=== PATIENT | male | born 1970 | race Caucasian/White ===

== ENCOUNTER 2020-04-11 10:34 | Outpatient (REF) | payer OTHER, SELFPAY ==
[2020-04-11 11:48] LABS: MANUAL DIFF FLAG NO
[2020-04-11 11:52] LABS: Basophils Absolute Auto 0.1 X10*3/uL (0.0-0.2); Basophils Percent Auto 0.6 % (0-2); Eosinophils Absolute Auto 0.2 X10*3/uL (0.0-0.4); Eosinophils Percent Auto 2.9 % (0-4); Hematocrit 45.6 % (42-52); Hemoglobin 14.6 g/dl (14.0-18.0); Imm Gran Abs Auto 0.02 X10*3/uL (0.00-0.03); Imm Gran Pct Auto 0.3 % (0.0-0.4); Lymphocytes Absolute Auto 2.4 X10*3/uL (1.2-4.9); Lymphocytes Percent Auto 30.5 % (20-40); Mean Corpuscular Hemoglobin 27.8 pg (27.0-33.0); Mean Corpuscular Volume 86.7 fL (80-98); Mean Platelet Volume 9.4 fL (9.4-12.4); Monocytes Absolute Auto 0.6 X10*3/uL (0.1-1.2); Monocytes Percent Auto 7.1 % (2-11); Neutrophils Absolute Auto 4.6 X10*3/uL (2.0-8.3); Neutrophils Percent Auto 58.6 % (45-73); Platelet Count 352 X10*3/uL (160-400); Red Blood Count 5.26 X10*6/uL (4.60-5.80); White Blood Count 7.9 X10*3/uL (4.8-10.8)
[2020-04-11 12:18] LABS: Alanine Aminotransferase 31 U/L (0-40); Albumin Level 4.4 g/dL (3.5-5.0); Alkaline Phosphatase 78 U/L (39-117); Anion Gap 12 (12-20); Aspartate Amino Transferase 24 U/L (5-37); Bilirubin Total 0.5 mg/dL (0.0-1.0); Blood Urea Nitrogen 15 mg/dL (9-16); Calcium 9.2 mg/dL (8.4-10.2); Carbon Dioxide 32 mmol/L (22-29); Chloride 98 mmol/L (96-108); Cholesterol 198 mg/dL; Estimated Glomerular Filt Rate > 60; Glucose Fasting 90 mg/dL (60-99); HDL Cholesterol 43 mg/dL; LDL Cholesterol Calculated 136 mg/dl; Potassium 3.8 mmol/l (3.3-5.1); Sodium 138 mmol/L (135-145); Total Protein 7.6 g/dL (6.5-8.0); Triglycerides 96 mg/dL
[2020-04-11 12:38] LABS: Vitamin D 25-OH Total 23.4 ng/mL (>30)
[2020-04-11 12:47] LABS: Folate 8.8 ng/mL (> or = 4.0); Vitamin B12 339 pg/mL (200-900)
== END 2020-04-11 10:35 | disposition home or self-care (01) ==
LOC: HO.LAB 10:34
PROVIDERS: Visit Provider Internal Medicine
DX: D51.0 Vitamin B12 deficiency anemia due to intrinsic factor deficiency (principal); I10 Essential (primary) hypertension; E55.9 Vitamin D deficiency, unspecified
CPT/HCPCS: 36415; 80053; 80061; 82306; 82607; 82746; 85025

== ENCOUNTER 2020-04-18 10:34 | Emergency (ER) | payer OTHER, SELFPAY ==
--- NOTE | 2020-04-18 10:44 | XR_ITS ---
EXAMINATION: XR ANKLE, RIGHT CLINICAL INFORMATION: Twisting injury, pain COMPARISON: Right ankle 08/24/2016 TECHNIQUE: AP, lateral, and mortise views of the right ankle. FINDINGS: There is no fracture or dislocation. The subtalar joint is unremarkable. The malleoli appear intact and the ankle mortise is symmetric. The retrocalcaneal recess is preserved. There is small posterior calcaneal spur. XR/XR ankle RT min 3V IMPRESSION: No fracture or dislocation.
[2020-04-18 11:09] VITALS: BP 126/84; PULSE 80; RESP 16; TEMP 36.7; O2SAT 97; BMI 50.2
--- NOTE | 2020-04-18 11:24 | ED.LOWEXIN ---
HPI - Extremity Injury (Lower) General Chief Complaint: Extremity Injury, Lower Stated Complaint: ankle injury,swelling Time Seen by Provider: 04/18/20 10:44 Source: patient Mode of arrival: ambulatory Limitations: no limitations History of Present Illness HPI Narrative: Right ankle pain status post rule ankle will walking. No fall. No knee pain or any other injury. MD complaint: ankle injury Onset (ago): hour(s) Type of Injury: inversion Place: home Severity: moderate Relieving factors: immobilization Context: walking Other symptoms: none Treatments prior to arrival: cold therapy Related Data Previous Rx's Medication Instructions Recorded gabapentin 400 mg capsule 400 mg PO BID #60 cap 03/01/20 hydrochlorothiazide 25 mg tablet 25 mg PO QAM #30 tab 03/30/20 Allergies Allergy/AdvReac Type Severity Reaction Status Date / Time No Known Allergies Allergy Verified 04/06/20 08:06 [No Known Allergies*] Review of Systems Review of Systems: Constitutional: No Weight loss, No Fever, No Chills, No Night Sweats, No Fatigue, No Malaise ENT/Mouth: No Hearing loss, No Ear Pain, No Nasal Congestion, No Sinus Pain, No Hoarseness, No sore throat, No Rhinorrhea, No Swallowing Difficulty Eyes: No Eye Pain, No Swelling, No Redness, No Foreign Body, No Discharge, No Vision Changes Cardiovascular: No Chest Pain Respiratory: No Cough, No Sputum, No Wheezing, No Smoke Exposure, No Dyspnea Musculoskeletal: No joint pain, No Myalgias, No Joint Swelling Skin: No Skin Lesions, No rash Neuro: No Weakness, No Numbness, No Paresthesias, No Loss of Consciousness, No Dizziness, No Headache Heme/Lymph: No Bruising, No Bleeding,No Lymphadenopathy Endocrine: No Polyuria, No Polydipsia, No Temperature Intolerance Yes all other systems are reviewed and are negative COUNT INCLUDES [facility] Past Medical History Medical History Arthritis Fibromyalgia HTN (hypertension) Surgical History History of biopsy History of carpal tunnel surgery Family History Family History (Updated 04/06/20 @ 08:07 by KIMI Estrella) Father Cancer Mother No problems noted. Sister Bone cancer Social History Social History Advance Directives: No Advance Directives Information Provided: Yes Physical Exam Vital Signs: Vital Signs: Last Vital Signs Temp 98.1 F 04/18/20 11:09 Pulse 80 04/18/20 11:09 Resp 16 04/18/20 11:09 BP 126/84 04/18/20 11:09 Pulse Ox 97 04/18/20 11:09 Body Mass Index 50.2 Reviewed Const: General: cooperative and healthy appearing; No acute distress or intoxicated appearing Nutritional Appearance: average body habitus Orientation/consciousness: patient oriented x3 Chest: Chest palpation & inspection: normal inspection of the chest Resp: Effort & Inspection: normal respiratory effort Cardio: Jugular venous distension: no JVD : General: Yes no CVA tenderness Back/Spine/Pelvis: Back: no CVA tenderness Skin: General skin exam: no rashes or lesions noted Neuro: General: patient oriented x3 Extrem: Other: Right ankle with slight swelling to the lateral aspect with tender palpation. No tender palpation over the foot. Squeeze test within normal limits. Negative Homans. Neurovascular intact. General: Yes normal to inspection MDM - Extremity Injury (Lower) MDM Narrative Medical decision making narrative: A strep/crutches Differential Diagnosis Differential diagnosis: Likely ankle sprain and strain; Unlikely ankle fracture Medical Records Attestation: I reviewed the patient's medical records. Lab Data Attestation: I reviewed the patient's lab results. Imaging Data Ankle x-ray right: Radiologist's impression: Marquez Allen 49 M 1970 [place] [id number] XRay Report Signed Patient: Marquez AllenMR#: [id number] : 1970Acct:[id number] Age/Sex: 49 / MADM Date: 04/18/20 Loc: HO.ED Attending Dr: Ordering Physician: Jc Rich NP Date of Service: 04/18/20 Procedure(s): XR ankle RT min 3V Accession Number(s): [id number] cc: Jc Rich NP~ EXAMINATION: XR ANKLE, RIGHT CLINICAL INFORMATION: Twisting injury, pain COMPARISON: Right ankle 08/24/2016 TECHNIQUE: AP, lateral, and mortise views of the right ankle. FINDINGS: There is no fracture or dislocation. The subtalar joint is unremarkable. The malleoli appear intact and the ankle mortise is symmetric. The retrocalcaneal recess is preserved. There is small posterior calcaneal spur. XR/XR ankle RT min 3V IMPRESSION: No fracture or dislocation. Dictated By:ANDERS SORENSON MD Signed By:<Electronically signed by ANDERS SORENSON MD in OV>04/18/20 1059 DD/ 1044 TD/TT: Early Childhood Teacher Assistant: NIRAV Discharge Plan Discharge Clinical Impression: Ankle sprain and strain Patient Disposition: Home, Self-Care Instructions: Ankle Sprain (ED), Crutch Instructions (ED) Additional Instructions: Ice, elevate, compress Crutches Weightbearing as tolerated Ibuprofen for pain discomfort per instructions Return if any concerns worsening symptoms Thank you Prescriptions: No Action gabapentin 400 mg capsule 400 mg PO BID Qty: 60 RF: 6 hydrochlorothiazide 25 mg tablet 25 mg PO QAM Qty: 30 RF: 1 Referrals: ED Physician,Generic [Emergency Provider] - 1 week (Primary care doctor as needed)
== END 2020-04-18 12:09 | disposition home or self-care (01) ==
PROVIDERS: Emergency Provider Internal Medicine
DX: S93.401A Sprain of unspecified ligament of right ankle, initial encounter (principal); M25.571 Pain in right ankle and joints of right foot; X50.1XXA Overexertion from prolonged static or awkward postures, initial encounter; Y93.9 Activity, unspecified; Y99.9 Unspecified external cause status; Y92.009 Unspecified place in unspecified non-institutional (private) residence as the place of occurrence of the external cause; Z79.899 Other long term (current) drug therapy
CPT/HCPCS: 73610; 99283

== ENCOUNTER → 2020-05-18 14:39 | Outpatient (BNVA) | payer OTHER, SELFPAY | PROVIDERS: PCP Internal Medicine; Visit Provider Nurse Practitioner | DX: K21.9 Gastro-esophageal reflux disease without esophagitis (principal); K64.2 Third degree hemorrhoids; K59.04 Chronic idiopathic constipation | CPT/HCPCS: Q3014 ==

== ENCOUNTER 2020-10-11 13:43 | Outpatient (REF) | payer OTHER, SELFPAY ==
--- NOTE | ~2020-10-11 | CT_ITS ---
EXAMINATION: CT OF THE SACRUM CLINICAL INFORMATION: Spina bifida, unspecified COMPARISON: CT dated 10/16/2019 TECHNIQUE: Multidetector volumetric imaging was obtained through the pelvis without intravenous contrast. Multiplanar reformatted images in coronal and sagittal orientations were submitted. Reconstructions are centered around the sacrum. DLP: 937 mGy-cm This CT examination was performed using dose optimization techniques as appropriate, variously including the following: *Automated exposure control *Adjustment of mA and/or kV according to patient size (this includes techniques or standardized protocols for targeted exams where dose is matched to indication/reason for exam; i.e. extremities or head) *Use of iterative reconstruction technique FINDINGS: The sacrum appears normal morphology without appreciable findings of dysraphism. The posterior elements appear appropriately fused. No cystic outpouchings are identified. Of note, the central canal at the level of L5 appears developmentally narrow (1.2 cm). There is grade 1 anterolisthesis of L4 on L5 (3 mm) with severe facet arthropathy at L4-L5 and mild to moderate degenerative disc disease. There is more mild degenerative disease and moderate facet arthropathy at L5-S1. There is mild osteoarthritis in the sacroiliac joints with vacuum phenomenon, subarticular sclerosis, and articular cortical irregularity. Hips and pubic symphysis are normal in appearance and appear relatively well preserved. No osseous lesions are identified. Bone mineralization is normal. Calcifications are present within the central gland of the prostate. Bladder and distal ureters are normal in appearance. Intrapelvic small bowel and colon are normal in caliber without surrounding inflammatory change. Appendix is normal. No adenopathy. Pelvic musculature appears symmetric. No focal atrophy. No joint effusions or bursal collections are identified. CT/CT sacrum IMPRESSION: 1. No evidence of spinal dysraphism at the sacrum/coccyx. 2. Developmentally narrow central canal at the L5 level. 3. Marked facet arthropathy in the lumbar spine with grade 1 anterolisthesis of L4 on L5. 4. Mild osteoarthritis in the SI joints.
--- NOTE | ~2020-10-11 | XR_ITS ---
EXAMINATION: XR HIP, RIGHT CLINICAL INFORMATION: Right hip pain. COMPARISON: Right hip radiographs dated 07/26/2017 TECHNIQUE: Two views of the right hip. FINDINGS: Bones and soft tissues are normal. No fracture. Alignment is anatomic. Hip joint space is maintained. XR/XR hip RT min 2V IMPRESSION: Unremarkable examination.
--- NOTE | ~2020-10-11 | XR_ITS ---
EXAMINATION: XR THORACOLUMBAR SPINE CLINICAL INFORMATION: Thoracic spine pain. COMPARISON: Thoracic spine radiographs dated 08/24/2016 TECHNIQUE: AP, lateral, and swimmer's views of the thoracic spine. FINDINGS: Normal vertebral body alignment. The thoracic kyphosis is maintained. No acute fracture or subluxation. No loss of vertebral body height. Multilevel loss of intervertebral disc height with anterior endplate osteophytes, increased when compared to the prior examination. No lytic or blastic osseous lesion. The visualized lungs are clear. XR/XR thoracic spine 2V IMPRESSION: Moderate multilevel degenerative disc disease, increased when compared to the radiographs dated 08/24/2016.
== END 2020-10-11 13:44 | disposition home or self-care (01) ==
LOC: HO.CT 13:43
PROVIDERS: Visit Provider Internal Medicine
DX: Q05.9 Spina bifida, unspecified (principal); M54.6 Pain in thoracic spine; M25.551 Pain in right hip
CPT/HCPCS: 72070; 72192; 73502

== ENCOUNTER → 2020-11-15 09:56 | Outpatient (BNVA) | payer OTHER, SELFPAY | PROVIDERS: PCP Internal Medicine; Visit Provider Internal Medicine Gastroenterology | CPT/HCPCS: Q3014 ==

== ENCOUNTER 2020-11-28 09:31 | Outpatient (REF) | payer OTHER, SELFPAY ==
[2020-11-28 10:00] LABS: MANUAL DIFF FLAG NO
[2020-11-28 10:07] LABS: Basophils Absolute Auto 0.1 X10*3/uL (0.0-0.2); Basophils Percent Auto 0.8 % (0-2); Eosinophils Absolute Auto 0.3 X10*3/uL (0.0-0.4); Eosinophils Percent Auto 3.5 % (0-4); Hematocrit 44.4 % (42-52); Hemoglobin 14.4 g/dl (14.0-18.0); Imm Gran Abs Auto 0.02 X10*3/uL (0.00-0.03); Imm Gran Pct Auto 0.3 % (0.0-0.4); Lymphocytes Absolute Auto 2.4 X10*3/uL (1.2-4.9); Lymphocytes Percent Auto 31.1 % (20-40); Mean Corpuscular HGB Conc 32.4 g/dl (31.0-36.0); Mean Corpuscular Hemoglobin 28.6 pg (27.0-33.0); Mean Corpuscular Volume 88.1 fL (80-98); Monocytes Absolute Auto 0.7 X10*3/uL (0.1-1.2); Monocytes Percent Auto 8.9 % (2-11); Neutrophils Absolute Auto 4.3 X10*3/uL (2.0-8.3); Neutrophils Percent Auto 55.4 % (45-73); Platelet Count 317 X10*3/uL (160-400); Red Blood Count 5.04 X10*6/uL (4.60-5.80); Red Cell Distribution Width 12.5 % (11.0-16.0); White Blood Count 7.8 X10*3/uL (4.8-10.8)
[2020-11-28 10:25] LABS: Alanine Aminotransferase 35 U/L (0-40); Albumin Level 4.4 g/dL (3.5-5.0); Alkaline Phosphatase 72 U/L (39-117); Anion Gap 14 (12-20); Aspartate Amino Transferase 26 U/L (5-37); Bilirubin Total 0.7 mg/dL (0.0-1.0); Blood Urea Nitrogen 15 mg/dL (9-16); Calcium 9.6 mg/dL (8.4-10.2); Carbon Dioxide 30 mmol/L (22-29); Chloride 100 mmol/L (96-108); Cholesterol 172 mg/dL; Estimated Glomerular Filt Rate > 60; Glucose Fasting 96 mg/dL (60-99); HDL Cholesterol 45 mg/dL; LDL Cholesterol Calculated 111 mg/dl; Potassium 4.1 mmol/L (3.3-5.1); Sodium 140 mmol/L (135-145); Total Protein 7.7 g/dL (6.5-8.0); Triglycerides 80 mg/dL
[2020-11-28 11:07] LABS: Folate 14.6 ng/mL (> or = 4.0); Vitamin B12 312 pg/mL (200-900)
[2020-12-05 13:31] LABS: Vitamin D 25-OH, D2 <4 ng/mL; Vitamin D 25-OH, D3 32 ng/mL; Vitamin D 25-OH, Total 32 ng/mL (30-100)
== END 2020-11-28 09:32 | disposition home or self-care (01) ==
LOC: HO.LAB 09:31
PROVIDERS: PCP Internal Medicine; Visit Provider Internal Medicine
DX: D64.9 Anemia, unspecified (principal); E55.9 Vitamin D deficiency, unspecified; E78.5 Hyperlipidemia, unspecified; I10 Essential (primary) hypertension; E53.8 Deficiency of other specified B group vitamins
CPT/HCPCS: 36415; 80053; 80061; 82306; 82607; 82746; 85025

== ENCOUNTER → 2021-01-02 13:14 | Outpatient (BNVA) | payer OTHER, SELFPAY | PROVIDERS: PCP Internal Medicine; Visit Provider Internal Medicine | DX: M47.814 Spondylosis without myelopathy or radiculopathy, thoracic region (principal); M51.34 Other intervertebral disc degeneration, thoracic region | CPT/HCPCS: 99202 ==

== ENCOUNTER → 2021-01-11 10:30 | Outpatient (BNVA) | payer OTHER, SELFPAY | PROVIDERS: PCP Internal Medicine; Referring Provider Internal Medicine; Visit Provider Physician Assistant | DX: E66.01 Morbid (severe) obesity due to excess calories (principal); K21.9 Gastro-esophageal reflux disease without esophagitis; K59.04 Chronic idiopathic constipation; R13.10 Dysphagia, unspecified; M79.7 Fibromyalgia; M47.814 Spondylosis without myelopathy or radiculopathy, thoracic region; Q05.9 Spina bifida, unspecified; I10 Essential (primary) hypertension; Z68.43 Body mass index [BMI] 50.0-59.9, adult | CPT/HCPCS: 99202 ==

== ENCOUNTER 2021-01-18 07:57 | Outpatient (REF) | payer OTHER, SELFPAY ==
--- NOTE | ~2021-01-18 | XR_ITS ---
EXAMINATION: XR CHEST CLINICAL INFORMATION: Morbid obesity COMPARISON: December 08, 2018 TECHNIQUE: 2 views of the chest were obtained. FINDINGS: No significant abnormality is noted involving the heart, lungs, mediastinum, bony thorax or soft tissues. XR/XR chest 2V IMPRESSION: No acute disease.
--- NOTE | 2021-01-18 08:15 | ECG_ITS ---
Test Reason : E66.01 Blood Pressure : / mmHG Vent. Rate : 088 BPM Atrial Rate : 088 BPM P-R Int : 164 ms QRS Dur : 088 ms QT Int : 366 ms P-R-T Axes : 069 045 062 degrees QTc Int : 442 ms Normal sinus rhythm Normal ECG When compared with ECG of 26-MAR-2019 19:45, No significant change was found Referred By: Eliz Ledezma Electronically Signed By:MOR LAUREANO
[2021-01-18 08:42] LABS: MANUAL DIFF FLAG NO
[2021-01-18 08:47] LABS: Basophils Absolute Auto 0.1 X10*3/uL (0.0-0.2); Basophils Percent Auto 0.6 % (0-2); Eosinophils Absolute Auto 0.2 X10*3/uL (0.0-0.4); Eosinophils Percent Auto 3.1 % (0-4); Hematocrit 44.1 % (42-52); Hemoglobin 14.8 g/dl (14.0-18.0); Imm Gran Abs Auto 0.02 X10*3/uL (0.00-0.03); Imm Gran Pct Auto 0.3 % (0.0-0.4); Lymphocytes Absolute Auto 2.4 X10*3/uL (1.2-4.9); Lymphocytes Percent Auto 30.9 % (20-40); Mean Corpuscular HGB Conc 33.6 g/dl (31.0-36.0); Mean Corpuscular Hemoglobin 28.9 pg (27.0-33.0); Mean Corpuscular Volume 86.1 fL (80-98); Monocytes Absolute Auto 0.7 X10*3/uL (0.1-1.2); Monocytes Percent Auto 9.3 % (2-11); Neutrophils Absolute Auto 4.4 X10*3/uL (2.0-8.3); Neutrophils Percent Auto 55.8 % (45-73); Platelet Count 345 X10*3/uL (160-400); Red Blood Count 5.12 X10*6/uL (4.60-5.80); Red Cell Distribution Width 12.4 % (11.0-16.0); White Blood Count 7.8 X10*3/uL (4.8-10.8)
[2021-01-18 09:01] LABS: Alanine Aminotransferase 35 U/L (0-40); Albumin Level 4.4 g/dL (3.5-5.0); Alkaline Phosphatase 62 U/L (39-117); Anion Gap 12 (12-20); Aspartate Amino Transferase 26 U/L (5-37); Bilirubin Total 0.8 mg/dL (0.0-1.0); Blood Urea Nitrogen 15 mg/dL (9-16); C Reactive Protein 0.27 mg/dL (< or = 0.50); Calcium 9.8 mg/dL (8.4-10.2); Carbon Dioxide 29 mmol/L (22-29); Chloride 101 mmol/L (96-108); Cholesterol 173 mg/dL; Estimated Glomerular Filt Rate > 60; Glucose Random 98 mg/dL (60-115); HDL Cholesterol 43 mg/dL; Iron 142 mcg/dL (45-160); LDL Cholesterol Calculated 115 mg/dl; Percent Iron Saturation 35 % (15-50); Sodium 138 mmol/L (135-145); Total Iron Binding Capacity 405 mcg/dL (228-428); Total Protein 7.8 g/dL (6.5-8.0); Triglycerides 79 mg/dL; Unsaturated Iron Binding 263 ug/dL
[2021-01-18 09:08] LABS: Estimated Average Glucose 111 mg/dL; Hemoglobin A1c % 5.5 %
[2021-01-18 09:29] LABS: TSH reflex Free T4 1.25 uIU/mL (0.32-4.0); Vitamin D 25-OH Total 31.2 ng/mL (>30)
[2021-01-18 09:38] LABS: Folate 12.7 ng/mL (> or = 4.0); Vitamin B12 373 pg/mL (200-900)
[2021-01-18 09:59] LABS: Ferritin 45 ng/mL (20-250)
[2021-01-19 09:26] LABS: Insulin Level Total 23.3 uIU/mL
[2021-01-19 16:16] LABS: Calcium (PTHI) 9.8 mg/dL (8.6-10.3); PTHI 47 pg/mL (14-64)
[2021-01-21 06:31] LABS: Zinc 91 mcg/dL (60-130)
[2021-01-22 10:10] LABS: Vitamin B1 9 nmol/L (8-30)
[2021-01-23 00:27] LABS: Vitamin A 36 mcg/dL (38-98)
== END 2021-01-18 07:58 | disposition home or self-care (01) ==
LOC: HO.XRAY 07:57
PROVIDERS: PCP Internal Medicine; Visit Provider Physician Assistant
DX: E66.01 Morbid (severe) obesity due to excess calories (principal); I10 Essential (primary) hypertension; K21.9 Gastro-esophageal reflux disease without esophagitis; R13.10 Dysphagia, unspecified
CPT/HCPCS: 36415; 71046; 80053; 80061; 82306; 82607; 82728; 82746; 83036; 83525; 83540; 83970; 84425; 84443; 84590; 84630; 85025; 86140; 93005

== ENCOUNTER 2021-01-27 10:58 | Outpatient (REF) | payer OTHER, SELFPAY ==
[2021-01-28 15:45] LABS: H Pylori Breath Test Negative (Negative)
== END 2021-01-27 10:59 | disposition home or self-care (01) ==
LOC: HO.LNP 10:58
PROVIDERS: PCP Internal Medicine; Referring Provider Internal Medicine; Visit Provider Physician Assistant
DX: A04.8 Other specified bacterial intestinal infections (principal)
CPT/HCPCS: 83013; 99211

== ENCOUNTER 2021-01-30 13:48 | Outpatient (REF) | payer OTHER, SELFPAY | END 2021-01-30 13:49 | disposition home or self-care (01) | LOC: HO.MRI 13:48 | PROVIDERS: PCP Internal Medicine; Visit Provider Internal Medicine | DX: M51.34 Other intervertebral disc degeneration, thoracic region (principal); E66.01 Morbid (severe) obesity due to excess calories; Z68.42 Body mass index [BMI] 45.0-49.9, adult; F17.200 Nicotine dependence, unspecified, uncomplicated; Z71.6 Tobacco abuse counseling | CPT/HCPCS: 99212 ==

== ENCOUNTER 2021-01-31 01:07 | Emergency (ER) | payer OTHER, SELFPAY ==
--- NOTE | ~2021-01-31 | CT_ITS ---
EXAMINATION: CT ABDOMEN AND PELVIS WITH CONTRAST CLINICAL INFORMATION: Left flank pain. Left lower quadrant pain. COMPARISON: Renal ultrasound from 11/30/2018. CT images of pelvis from 10/11/2020. TECHNIQUE: Multidetector volumetric images were obtained from the superior aspect of the liver through the pubic symphysis following administration 85 mL of Omnipaque 350 intravenous contrast. Sagittal and coronal reformatted images were obtained on the technologist's workstation. Oral contrast: No This CT examination was performed using dose optimization techniques as appropriate, variously including the following: *Automated exposure control *Adjustment of mA and/or kV according to patient size (this includes techniques or standardized protocols for targeted exams where dose is matched to indication/reason for exam; i.e. extremities or head) *Use of iterative reconstruction technique DLP: 1082 mGy-cm FINDINGS: LUNG BASES: Large body habitus. Subsegmental atelectasis in the inferior lingula. No pulmonary consolidation or pleural effusion at either lung base. LIVER: The liver has normal size, shape, and attenuation. No evidence of liver mass. GALLBLADDER AND BILIARY TREE: Gallbladder is without radiopaque stones, wall thickening or pericholecystic fluid. No bile duct dilatation. PANCREAS: Normal. No edema, pancreatic ductal dilatation or mass. SPLEEN: Normal. ADRENAL GLANDS: Normal. KIDNEYS AND URETERS: The kidneys have normal size and cortical thickness. No solid mass or perinephric fluid collection. No urolithiasis or hydroureteronephrosis. BLADDER: Normal. No calculi or wall thickening. BOWEL AND PERITONEUM: Stomach is unremarkable. No dilated loops of bowel. The appendix is normal. No overt bowel wall thickening or mesenteric fat stranding. No ascites or pneumoperitoneum. ABDOMINAL WALL: Unremarkable. VASCULATURE: Unremarkable. LYMPH NODES: No pathologic sized lymph nodes in the abdomen or pelvis. No inguinal lymphadenopathy. PELVIC VISCERA: Prostate gland is unremarkable. No pelvic mass or pelvic free fluid. SKELETAL: At L4-L5, there is facet arthropathy and disc degenerative change (with vacuum disc phenomenon) and grade 1 anterolisthesis of L4 on L5. No suspicious bone lesions. CT/CT abdomen pelvis w con IMPRESSION: * No acute imaging abnormalities in the abdomen or pelvis. * No evidence of urolithiasis or hydroureteronephrosis.
[2021-01-31 01:19] VITALS: BP 152/82; PULSE 69; RESP 18; TEMP 36.6; O2SAT 99; BMI 51.0
[2021-01-31 01:48] LABS: MANUAL DIFF FLAG NO
[2021-01-31 01:49] LABS: Basophils Absolute Auto 0.1 X10*3/uL (0.0-0.2); Basophils Percent Auto 0.6 % (0-2); Eosinophils Absolute Auto 0.2 X10*3/uL (0.0-0.4); Eosinophils Percent Auto 2.5 % (0-4); Hematocrit 42.6 % (42-52); Hemoglobin 14.3 g/dl (14.0-18.0); Imm Gran Abs Auto 0.02 X10*3/uL (0.00-0.03); Imm Gran Pct Auto 0.2 % (0.0-0.4); Lymphocytes Absolute Auto 3.4 X10*3/uL (1.2-4.9); Lymphocytes Percent Auto 39.4 % (20-40); Mean Corpuscular HGB Conc 33.6 g/dl (31.0-36.0); Mean Corpuscular Hemoglobin 29.2 pg (27.0-33.0); Mean Corpuscular Volume 86.9 fL (80-98); Mean Platelet Volume 8.8 fL (9.4-12.4); Monocytes Absolute Auto 0.7 X10*3/uL (0.1-1.2); Monocytes Percent Auto 8.3 % (2-11); Neutrophils Absolute Auto 4.2 X10*3/uL (2.0-8.3); Platelet Count 339 X10*3/uL (160-400); Red Cell Distribution Width 12.4 % (11.0-16.0); White Blood Count 8.6 X10*3/uL (4.8-10.8)
[2021-01-31 02:08] LABS: Alanine Aminotransferase 29 U/L (0-40); Albumin Level 4.3 g/dL (3.5-5.0); Alkaline Phosphatase 71 U/L (39-117); Anion Gap 12 (12-20); Aspartate Amino Transferase 25 U/L (5-37); Bilirubin Direct 0.2 mg/dL (0.0-0.5); Bilirubin Total 0.6 mg/dL (0.0-1.0); Blood Urea Nitrogen 17 mg/dL (9-16); Calcium 9.7 mg/dL (8.4-10.2); Carbon Dioxide 29 mmol/L (22-29); Chloride 102 mmol/L (96-108); Creatinine Clr Calc Pharmacy 86.7; Estimated Glomerular Filt Rate > 60; Glucose Random 96 mg/dL (60-115); Lipase 25 U/L (8-78); Potassium 4.1 mmol/L (3.3-5.1); Sodium 139 mmol/L (135-145); Total Protein 7.4 g/dL (6.5-8.0)
[2021-01-31 04:48] VITALS: BP 128/76; PULSE 68; RESP 18; O2SAT 100
[2021-01-31 05:42] LABS: Appearance Urine CLEAR; Color Urine YELLOW; Glucose Urine UA NEG (NEG); Leukocyte Esterase Urine NEG (NEG); Nitrite Urine NEG (NEG); UACC Culture Trigger NO; Urine Blood TRACE (NEG); Urine Ketones 5 MG/DL (NEG); Urine Protein NEG (NEG-TRACE)
[2021-01-31 05:47] LABS: Mucus Urine 2+ /LPF; WBC Urine 0-2 /HPF (0-4)
--- NOTE | 2021-01-31 06:36 | ED.ABDPAIN ---
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 He states he has a history of renal stones. Related Data Home Medications Medication Instructions Recorded Confirmed hydrocortisone 2.5 % topical cream 1 appl UT BID-QID PRN 05/18/20 01/02/21 with perineal applicator (Anusol-HC) escitalopram oxalate 10 mg tablet 10 mg PO QAM 11/15/20 01/02/21 zolpidem 10 mg tablet 500f10 mg PO BEDTIME PRN 11/15/20 01/02/21 Previous Rx's Medication Instructions Recorded cholecalciferol (vitamin D3) 25 25 mcg PO DAILY 90 Days #90 cap 07/21/20 mcg (1,000 unit) capsule enalapril maleate 10 mg tablet 10 mg PO DAILY 90 Days #90 tab 09/01/20 omeprazole 40 mg capsule,delayed 40 mg PO DAILY #90 cap 11/15/20 release duloxetine 60 mg capsule,delayed 60 mg PO DAILY 90 Days #90 cap 12/05/20 release (Cymbalta) gabapentin 400 mg capsule 400 mg PO TID 30 Days #90 cap 12/05/20 hydrochlorothiazide 25 mg tablet 25 mg PO QAM 90 Days #90 tab 12/21/20 linaclotide 145 mcg capsule 145 mcg PO QAM 30 Days #30 cap 12/21/20 (Linzess) sennosides 8.6 mg tablet (Francesca-alcon) See Rx Instructions PO .COMPLEX 12/26/20 PRN 30 Days #90 tab cyanocobalamin (vitamin B-12) 500 500 mcg PO DAILY #30 tab 01/18/21 mcg tablet vitamin A palmitate 10,000 unit 20,000 unit PO DAILY 14 Days #28 01/25/21 tablet tab Allergies Allergy/AdvReac Type Severity Reaction Status Date / Time No Known Allergies Allergy Verified 01/30/21 10:31 [No Known Allergies*] Review of Systems Review of Systems Pertinent positives and negatives as stated in HPI 10 point review of systems is otherwise negative. Physical Exam Vital Signs: Vital Signs: Last Vital Signs Temp 97.8 F 01/31/21 01:19 Pulse 68 01/31/21 04:48 Resp 18 01/31/21 04:48 BP 128/76 01/31/21 04:48 Pulse Ox 100 01/31/21 04:48 Body Mass Index 51.0 VITAL SIGNS: Reviewed. GENERAL: Well developed, well nourished, in no acute distress. HEAD: Normocephalic/atraumatic EYES: PERRLA, EOMI OROPHARYNX: no oral lesions noted, posterior pharynx clear LUNGS: Normal breath sounds. No adventitious sounds or accessory muscle use. SpO2<100> CARDIOVASCULAR: Regular rate and rhythm without noted murmurs, no JVD or lower extremity edema. ABDOMEN: Soft, tenderness in left flank/lower quadrant without rebound, non-distended with bowel sounds. NEUROLOGIC: Alert and oriented x 4. Course Course Course Narrative: 50-year-old male with history and clinical presentation suggestive of renal colic but will rule out diverticulitis. Review of all investigations negative except for pending CT scan. Review of all investigations without acute findings. Specifically CT scan does not demonstrate any intra abdominal pathologies. MDM - Abdominal Pain Lab Data Result diagrams: 01/31/21 01:38 01/31/21 01:38 Labs: Lab Results 01/31/21 01/31/21 01/31/21 Range/Units 01:38 01:38 05:34 WBC 8.6 (4.8-10.8) X10*3/uL RBC 4.90 (4.60-5.80) X10*6/uL Hgb 14.3 (14.0-18.0) g/dl Hct 42.6 (42-52) % MCV 86.9 (80-98) fL MCH 29.2 (27.0-33.0) pg MCHC 33.6 (31.0-36.0) g/dl RDW 12.4 (11.0-16.0) % Plt Count 339 (160-400) X10*3/uL MPV 8.8 L (9.4-12.4) fL Immature Gran % (Auto) 0.2 (0.0-0.4) % Neut % (Auto) 49.0 (45-73) % Lymph % (Auto) 39.4 (20-40) % Dickson % (Auto) 8.3 (2-11) % Eos % (Auto) 2.5 (0-4) % Baso % (Auto) 0.6 (0-2) % Lymph # (Auto) 3.4 (1.2-4.9) X10*3/uL Dickson # (Auto) 0.7 (0.1-1.2) X10*3/uL Eos # (Auto) 0.2 (0.0-0.4) X10*3/uL Baso # (Auto) 0.1 (0.0-0.2) X10*3/uL Abs Immat Gran (auto) 0.02 (0.00-0.03) X10*3/uL Absolute Neuts (auto) 4.2 (2.0-8.3) X10*3/uL Absolute Nucleated RBC 0.000 (0.0-0.012) X10*3/uL Nucleated RBC % (auto) 0.0 (0.0-0.2) /100WBC Sodium 139 (135-145) mmol/L Potassium 4.1 (3.3-5.1) mmol/L Chloride 102 (96-108) mmol/L Carbon Dioxide 29 (22-29) mmol/L Anion Gap 12 (12-20) BUN 17 H (9-16) mg/dL Creatinine 1.26 (0.5-1.4) mg/dL Estim Creat Clear Calc 86.7 Estimated GFR > 60 Random Glucose 96 (60-115) mg/dL Calcium 9.7 (8.4-10.2) mg/dL Total Bilirubin 0.6 (0.0-1.0) mg/dL Direct Bilirubin 0.2 (0.0-0.5) mg/dL AST 25 (5-37) U/L ALT 29 (0-40) U/L Alkaline Phosphatase 71 (39-117) U/L Total Protein 7.4 (6.5-8.0) g/dL Albumin 4.3 (3.5-5.0) g/dL Lipase 25 (8-78) U/L Urine Color YELLOW Urine Appearance CLEAR Urine pH 6.0 (5.0-8.0) Ur Specific [place] 1.020 (1.005-1.025) Urine Protein NEG (NEG-TRACE) MG/DL Urine Glucose (UA) NEG (NEG) MG/DL Urine Ketones 5 (NEG) MG/DL Urine Blood TRACE (NEG) Urine Nitrite NEG (NEG) Ur Leukocyte Esterase NEG (NEG) Urine RBC 1-4 (0) /HPF Urine WBC 0-2 (0-4) /HPF Ur Squamous Epith Cells NONE /LPF Urine Bacteria NONE /LPF Urine Mucus 2+ /LPF Discharge Plan Discharge Clinical Impression: Abdominal pain Patient Disposition: Home, Self-Care Instructions: Abdominal Pain (ED) Additional Instructions: 1. Reanude todos los medicamentos caseros seg?n lo prescrito. 2. Rosalba un seguimiento con quiñones proveedor de atenci?n primaria. Regrese a la elias de emergencias por un empeoramiento joseline de los s?ntomas. Prescriptions: No Action cholecalciferol (vitamin D3) 25 mcg (1,000 unit) capsule 25 mcg PO DAILY 90 Days Qty: 90 RF: 3 Linzess 145 mcg capsule 145 mcg PO QAM 30 Days Qty: 30 RF: 3 hydrochlorothiazide 25 mg tablet 25 mg PO QAM 90 Days Qty: 90 RF: 3 sennosides [Francesca-alcon] 8.6 mg tablet See Rx Instructions PO .COMPLEX PRN (Reason: constipation) 30 Days Qty: 90 RF: 4 cyanocobalamin (vitamin B-12) 500 mcg tablet 500 mcg PO DAILY Qty: 30 RF: 6 vitamin A palmitate 10,000 unit tablet 20,000 unit PO DAILY 14 Days Qty: 28 RF: 0 enalapril maleate 10 mg tablet 10 mg PO DAILY 90 Days Qty: 90 RF: 1 duloxetine [Cymbalta] 60 mg capsule,delayed release(DR/EC) 60 mg PO DAILY 90 Days Qty: 90 RF: 2 gabapentin 400 mg capsule 400 mg PO TID 30 Days Qty: 90 RF: 3 hydrocortisone [Anusol-HC] 2.5 % cream with perineal applicator 1 appl UT BID-QID PRNRF: 0 zolpidem 10 mg tablet 500f10 mg PO BEDTIME PRNRF: 0 escitalopram oxalate 10 mg tablet 10 mg PO QAM RF: 0 omeprazole 40 mg capsule,delayed release(DR/EC) 40 mg PO DAILY Qty: 90 RF: 2 Referrals: Linda Bo MD [Primary Care Provider] - 2 days Print Language: Hungarian [facility] Past Medical History Source: nursing notes reviewed Medical History Arthritis B12 deficiency Epistaxis Fibromyalgia HTN (hypertension) Insomnia Lumbar degenerative disc disease Polyarthralgia Right ankle sprain Right hip pain Spina bifida Thoracic spine pain Surgical History History of biopsy History of carpal tunnel surgery History of esophagogastroduodenoscopy (EGD) History of surgery of head Hx of colonoscopy Family History Family History Father Cancer Bone cancer Mother Stomach problems Sister No problems noted. Sister Diabetes Brother Diabetes Sleep apnea Bursitis Son No problems noted. Son No problems noted. Son No problems noted. Son Diabetes Daughter Diabetes Daughter No problems noted. Social History Social History Housing: Apartment Alcohol intake: former Year quit: 2010 Patient Tobacco Use Status: Never used Tobacco e-Cigarette/Vaping Use: Never Used Second Hand Smoke Exposure: No Advance Directives: No service: No Current occupational status: disabled
[2021-01-31] MEDS: Ketorolac Tromethamine 15 MG/ML VIAL IVPUSH (06:43)
[2021-01-31] MEDS: iohexoL 350 MG/ML 100 ML INFUS..BTL 85 ML IV (06:44)
[2021-01-31 08:00] VITALS: RESP 14
== END 2021-01-31 08:54 | disposition home or self-care (01) ==
PROVIDERS: Emergency Provider Student in an Organized Health Care Education/Training Program; PCP Internal Medicine
DX: R10.9 Unspecified abdominal pain (principal); Z79.899 Other long term (current) drug therapy
CPT/HCPCS: 36415; 74177; 80053; 81001; 82248; 83690; 85025; 96374; 99284; J1885; Q9967

== ENCOUNTER 2021-02-06 07:51 | Outpatient (REF) | payer OTHER, SELFPAY ==
--- NOTE | ~2021-02-06 | US_ITS ---
EXAMINATION: US COMPLETE ABDOMEN WITH LIVER ELASTOGRAPHY CLINICAL INFORMATION: Obesity COMPARISON: Previous CT of the abdomen and pelvis January 2021 TECHNIQUE: Real-time imaging of the abdominal viscera. Noninvasive ultrasound liver fibrosis assessment is performed using Ludy ElastPQ point quantification shear wave elastography (pSWE) with a C5-2 MHz transducer. Multiple elastography samples are obtained. FINDINGS: PANCREAS: Not well visualized due to bowel gas ABDOMINAL AORTA: No nodules visualized due to bowel gas INFERIOR VENA CAVA: Visualized portions are normal. LIVER: Liver echotexture is increased. Liver contour and size is normal. No focal liver lesion or biliary duct dilatation. The right lobe measures 17 cm in length. The left lobe measures 14 cm in length. Portal flow is normal/hepatopedal Shear wave liver elastography median stiffness is 2.1 m/s (reference: normal median stiffness is 1.3 m/s or less). IQR/median stiffness to assess sampling precision is 0.26 (reference: good quality data set is IQR/median stiffness of 0.15 or less). GALLBLADDER: Normal. The gallbladder is physiologically distended without evidence of stones, sludge, polyps, wall thickening or pericholecystic fluid. COMMON BILE DUCT: Normal in caliber measuring 0.4 cm in diameter. RIGHT KIDNEY: Not well visualized. No hydronephrosis. No renal calculi or focal parenchymal lesions. The kidney measures 11.6 cm in maximum dimension. LEFT KIDNEY: Not well visualized. No hydronephrosis. No renal calculi or focal parenchymal lesions. The kidney measures 11.4 cm in maximum dimension. SPLEEN: Normal. The spleen measures 10 cm in maximum dimension. FREE FLUID: None. US/US abdomen comp w elastography IMPRESSION: 1. Impression: Limited exam due to patient body habitus. Echogenic liver probably representing fatty infiltration. 2. Liver elastography: Limited due to sampling error. REFERENCE: Society of Radiologists in Ultrasound Liver Stiffness Thresholds (2020): LIVER STIFFNESS THRESHOLDS: *Liver Stiffness equal or less than 1.3 m/s: High probability of being normal. *Liver Stiffness less than 1.7 m/s: In the absence of other known clinical signs, rules out compensated advanced chronic liver disease. *Liver Stiffness 1.7-2.1 m/s: Suggestive of compensated advanced chronic liver disease but need further test for confirmation. *Liver Stiffness over 2.1 m/s: Rules in compensated advanced chronic liver disease. *Liver Stiffness over 2.4 m/s: Suggestive of clinically significant portal hypertension. QUALITY OF DATA SET: *IQR/Median value equal or less than 0.15 implies a quality data set. *IQR/Median value over 0.15 implies a poor quality data set. SIGNIFICANT CHANGE FROM PRIOR EXAM: Significant change if liver stiffness measurement is 10% or greater from prior exam. OTHER CONSIDERATIONS: The stage of liver fibrosis may be overestimated in the setting of acute hepatitis, liver inflammation, elevated liver function tests, hepatic vascular congestion, obstructive cholestasis, non-fasting state, and infiltrative diseases such as amyloidosis and lymphoma. In some patients with NAFLD, the liver stiffness thresholds for compensated advanced chronic liver disease may be lower. In causes other than viral hepatitis and NAFLD, liver stiffness thresholds are not well established.
--- NOTE | ~2021-02-06 | FL_ITS ---
EXAMINATION: XR GI SERIES CLINICAL INFORMATION: Jbqcgoam-qa-oritzz obesity. COMPARISON: None. TECHNIQUE: Routine upper GI air-contrast study was performed. FINDINGS: Following oral administration of thick barium and effervescent granules, there is normal propagation of bolus from the oral cavity through the pharynx and esophagus and into the stomach. Incidentally noted is a prominent cricoesophageal sphincter and a small anterior cervical esophageal web without obstruction or narrowing. On placing patient supine and prone lying, the course, caliber and peristalsis of the stomach, duodenal bulb and the sweep are normal. The mucosal pattern of the esophagus, stomach and the duodenum is normal. There is a xjolgqfy-[id number]-wdhpq gastroesophageal reflux without hiatal hernia. FLUOROSCOPY TIME: 1.7 minutes. DOSE AREA PRODUCT: 61.329 uGy-m2 (microgray-meter squared). FL/FL upper GI series IMPRESSION: Jgbvnpaq-gi-aalinmzlbcc gastroesophageal reflux without hiatal hernia. Prominent anterior cervical esophageal web and prominent cricoesophageal sphincter without any evidence of obstruction.
== END 2021-02-06 07:52 | disposition home or self-care (01) ==
LOC: HO.US 07:51
PROVIDERS: PCP Internal Medicine; Visit Provider Surgery
DX: Z01.818 Encounter for other preprocedural examination (principal); E66.01 Morbid (severe) obesity due to excess calories; K21.9 Gastro-esophageal reflux disease without esophagitis; R13.10 Dysphagia, unspecified; I10 Essential (primary) hypertension
CPT/HCPCS: 74240; 76705; 76981

== ENCOUNTER → 2021-02-10 13:06 | Outpatient (BNVA) | payer OTHER, SELFPAY | PROVIDERS: PCP Internal Medicine; Visit Provider Physician Assistant ==

== ENCOUNTER → 2021-02-13 08:14 | Outpatient (BNVA) | payer OTHER, SELFPAY | PROVIDERS: PCP Internal Medicine; Visit Provider Dietitian, Registered | DX: E66.01 Morbid (severe) obesity due to excess calories (principal) | CPT/HCPCS: 97802 ==

== ENCOUNTER → 2021-03-01 08:12 | Outpatient (BNVA) | payer OTHER, SELFPAY | PROVIDERS: PCP Internal Medicine; Referring Provider Physician Assistant; Visit Provider Dietitian, Registered ==

== ENCOUNTER → 2021-03-23 08:45 | Outpatient (BNVA) | payer OTHER, SELFPAY | PROVIDERS: PCP Internal Medicine; Referring Provider Internal Medicine; Visit Provider Surgery | DX: K64.9 Unspecified hemorrhoids (principal); K59.00 Constipation, unspecified | CPT/HCPCS: 46600; 99202 ==

== ENCOUNTER → 2021-03-24 08:08 | Outpatient (BNVA) | payer OTHER, SELFPAY | PROVIDERS: PCP Internal Medicine; Visit Provider Physician Assistant ==

== ENCOUNTER → 2021-04-18 11:02 | Outpatient (BNVA) | payer OTHER, SELFPAY | PROVIDERS: PCP Internal Medicine; Referring Provider Internal Medicine; Visit Provider Internal Medicine Gastroenterology | DX: K21.9 Gastro-esophageal reflux disease without esophagitis (principal); K59.04 Chronic idiopathic constipation | CPT/HCPCS: 99212 ==

== ENCOUNTER → 2021-05-22 12:47 | Outpatient (BNVA) | payer OTHER, SELFPAY | PROVIDERS: PCP Internal Medicine; Referring Provider Internal Medicine; Visit Provider Surgery | DX: K64.9 Unspecified hemorrhoids (principal); E66.01 Morbid (severe) obesity due to excess calories; Z68.43 Body mass index [BMI] 50.0-59.9, adult | CPT/HCPCS: 99212 ==

== ENCOUNTER → 2021-08-18 09:47 | Outpatient (BNVA) | payer OTHER, SELFPAY | PROVIDERS: PCP Internal Medicine; Referring Provider Internal Medicine; Visit Provider Internal Medicine Gastroenterology | DX: R10.13 Epigastric pain (principal) | CPT/HCPCS: 99212 ==

== ENCOUNTER 2021-09-06 12:12 | Outpatient (REF) | payer OTHER, SELFPAY | END 2021-09-06 12:13 | disposition home or self-care (01) | LOC: HO.LAB 12:12 | PROVIDERS: Visit Provider Hospitalist | DX: Z20.822 Contact with and (suspected) exposure to COVID-19 (principal); B34.9 Viral infection, unspecified | CPT/HCPCS: U0003; U0005 ==

== ENCOUNTER 2021-09-12 14:47 | Emergency (ER) | payer OTHER, SELFPAY ==
--- NOTE | ~2021-09-12 | CT_ITS ---
EXAMINATION: CT ABDOMEN AND PELVIS WITH CONTRAST CLINICAL INFORMATION: Left lower quadrant pain COMPARISON: CT abdomen and pelvis 01/31/2021 TECHNIQUE: Multidetector volumetric images were obtained from the superior aspect of the liver through the pubic symphysis following administration 85 mL of Omnipaque 350 intravenous contrast. Sagittal and coronal reformatted images were obtained on the technologist's workstation. Oral contrast: No This CT examination was performed using dose optimization techniques as appropriate, variously including the following: *Automated exposure control *Adjustment of mA and/or kV according to patient size (this includes techniques or standardized protocols for targeted exams where dose is matched to indication/reason for exam; i.e. extremities or head) *Use of iterative reconstruction technique DLP: 1175 mGy-cm FINDINGS: LUNG BASES: Nodularity with areas of tree-in-bud nodularity in both lung bases favoring an infectious/inflammatory process, question aspiration. The largest nodular opacity is in the subpleural left lung base measuring 9 mm. LIVER, GALLBLADDER, AND BILIARY TREE: The liver is normal in size, shape, and attenuation. No focal hepatic lesion or biliary ductal dilatation is present. Calcified granuloma in the posterior right lobe of the liver. The gallbladder is unremarkable with no evidence of radiopaque gallstones, gallbladder wall thickening, or obvious pericholecystic inflammatory changes. PANCREAS: Unremarkable. SPLEEN: Unremarkable. ADRENAL GLANDS: Unremarkable. KIDNEYS AND URETERS: The kidneys are normal in size, shape and attenuation. There is no hydronephrosis. Punctate nonobstructing calculus in the midpole of the right kidney. No ureteral calculi. BLADDER: Unremarkable. GASTROINTESTINAL TRACT: There is no bowel obstruction. A few scattered colonic diverticuli without diverticulitis. Normal appendix. ABDOMINAL WALL: No significant hernia is appreciated. LYMPH NODES: Normal. VASCULAR: Unremarkable. PELVIC VISCERA: Coarse calcifications in the normal sized prostate. OSSEOUS STRUCTURES: Degenerative changes in the spine. No destructive bony lesions. CT/CT abdomen pelvis w con IMPRESSION: No CT abnormality to explain the patient's left lower quadrant pain. Tree-in-bud nodularity in the lung bases suggesting underlying infectious/inflammatory process, question aspiration. The largest nodular opacity in the subpleural left lung base 9 mm. Correlate with history. Punctate nonobstructing right midpole renal calculus. A few scattered colonic diverticuli without diverticulitis. Fleischner guidelines were followed.
[2021-09-12 15:16] VITALS: BP 137/70; PULSE 83; RESP 18; TEMP 35.9; O2SAT 98; BMI 51.0
[2021-09-12 15:57] LABS: MANUAL DIFF FLAG NO
[2021-09-12 15:58] LABS: Appearance Urine CLEAR; Color Urine YELLOW; Glucose Urine UA NEG (NEG); Leukocyte Esterase Urine NEG (NEG); Nitrite Urine NEG (NEG); PH 5.5 (5.0-8.0); Specific Gravity - Urine 1.025 (1.005-1.025); UACC Culture Trigger NO; Urine Blood 1+ (NEG); Urine Ketones NEG (NEG); Urine Protein NEG (NEG-TRACE)
[2021-09-12 15:59] LABS: Basophils Absolute Auto 0.1 X10*3/uL (0.0-0.2); Basophils Percent Auto 0.6 % (0-2); Eosinophils Absolute Auto 0.4 X10*3/uL (0.0-0.4); Eosinophils Percent Auto 3.9 % (0-4); Hematocrit 42.2 % (42.0-52.0); Hemoglobin 13.9 g/dl (14.0-18.0); Imm Gran Abs Auto 0.09 X10*3/uL (0.00-0.03); Imm Gran Pct Auto 0.8 % (0.0-0.4); Lymphocytes Percent Auto 27.1 % (20-40); Mean Corpuscular HGB Conc 32.9 g/dl (31.0-36.0); Mean Corpuscular Hemoglobin 29.1 pg (27.0-33.0); Mean Corpuscular Volume 88.3 fL (80.0-98.0); Mean Platelet Volume 8.9 fL (9.4-12.4); Monocytes Absolute Auto 0.8 X10*3/uL (0.1-1.2); Monocytes Percent Auto 7.2 % (2-11); Neutrophils Absolute Auto 6.6 x10*3/uL (2.0-8.3); Neutrophils Percent Auto 60.4 % (45-73); Platelet Count 421 X10*3/uL (160-400); Red Blood Count 4.78 X10*6/uL (4.60-5.80); Red Cell Distribution Width 12.5 % (11.0-16.0); White Blood Count 10.9 X10*3/uL (4.8-10.8)
--- NOTE | 2021-09-12 16:19 | ED.ABDPAIN ---
HPI - Abdominal Pain General Chief Complaint: Abdominal Pain Stated Complaint: abd pain, sorethroat Time Seen by Provider: 09/12/21 15:55 Source: patient Mode of arrival: ambulatory Limitations: no limitations History of Present Illness HPI narrative: Patient comes to the emergency room complaining of 3 days of left lower quadrant pain, nonradiating, constant. Patient denies nausea vomiting or diarrhea, no fever chills, no dysuria. Patient states he was seen yesterday for a viral upper respiratory infection. Patient states that he has been coughing. But abdominal pain is present regardless of coughing. Patient has history of constipation, sees Dr. Carvajal. Patient denies blood or black stool. Of note, patient is being treated with Augmentin for sinusitis/bronchitis. Patient states his symptoms are nearly resolved Related Data Home Medications Medication Instructions Recorded Confirmed hydrocortisone 2.5 % topical cream 1 appl [place] BID-QID PRN 05/18/20 09/06/21 with perineal applicator (Anusol-HC) escitalopram oxalate 10 mg tablet 10 mg PO QAM 11/15/20 09/06/21 zolpidem 10 mg tablet 500f10 mg PO BEDTIME PRN 11/15/20 09/06/21 Previous Rx's Medication Instructions Recorded cholecalciferol (vitamin D3) 25 25 mcg PO DAILY 90 Days #90 cap 07/21/20 mcg (1,000 unit) capsule hydrochlorothiazide 25 mg tablet 25 mg PO QAM 90 Days #90 tab 12/21/20 cyanocobalamin (vitamin B-12) 500 500 mcg PO DAILY #30 tab 01/18/21 mcg tablet vitamin A palmitate 10,000 unit 20,000 unit PO DAILY 14 Days #28 01/25/21 tablet tab hydrocortisone 2.5 % topical cream 1 appl TX BID #30 g 03/10/21 with perineal applicator (Proctozone-HC) menthol 0.44 %-zinc oxide 20.6 % 1 appl TOPICAL QID PRN #113 g 03/23/21 topical ointment (Calmoseptine) pantoprazole 40 mg tablet,delayed 40 mg PO BID #90 tab 04/18/21 release gel cushion seat #1 ea 05/16/21 sennosides 8.6 mg tablet (Francesca-alcon) See Rx Instructions PO .COMPLEX 01/18/22 PRN 30 Days #90 tab linaclotide 145 mcg capsule 145 mcg PO BID #60 cap 07/20/21 (Linzess) duloxetine 60 mg capsule,delayed 60 mg PO DAILY 90 Days #90 cap 08/27/21 release (Cymbalta) enalapril maleate 10 mg tablet 10 mg PO DAILY #90 tab 08/27/21 amoxicillin 875 mg-potassium 1 tab PO BID 7 Days #14 tab 09/07/21 clavulanate 125 mg tablet gabapentin 400 mg capsule 400 mg PO TID 30 Days #90 cap 09/11/21 Allergies Allergy/AdvReac Type Severity Reaction Status Date / Time No Known Allergies Allergy Verified 09/12/21 15:18 [No Known Allergies*] Review of Systems Review of Systems Constitutional : No Weight loss, No Fever, No Chills, No Night Sweats, No Fatigue, No Malaise ENT/Mouth : No Hearing loss, No Ear Pain, No Nasal Congestion, No Sinus Pain, No Hoarseness, No sore throat, No Rhinorrhea, No Swallowing Difficulty Eyes: No Eye Pain, No Swelling, No Redness, No Foreign Body, No Discharge, No Vision Changes Cardiovascular : No Chest Pain, No SOB, No Dyspnea on Exertion, No Orthopnea, No Edema, No Palpitations Respiratory : No Cough, No Sputum, No Wheezing, No Smoke Exposure, No Dyspnea Gastrointestinal : No Nausea, No Vomiting, No Diarrhea, complaining of chronic constipation, left lower quadrant pain constant and nonradiating. No melena Genitourinary : no irregular bleeding, No Dysuria, No Urinary Frequency, No Hematuria, No Urinary Incontinence, No Urgency, No Flank Pain, No Urinary Flow Changes, No Hesitancy Musculoskeletal : No joint pain, No Myalgias, No Joint Swelling Skin : No Skin Lesions, No rash Neuro : No Weakness, No Numbness, No Paresthesias, No Loss of Consciousness, No Dizziness, No Headache Psych : No Anxiety/Panic, No Depression, No SI/HI/AH/VH, No Social Issues, Heme/Lymph: No Bruising, No Bleeding,No Lymphadenopathy Endocrine : No Polyuria, No Polydipsia, No Temperature Intolerance PMFSH Past Medical History Medical History Arthritis B12 deficiency Bleeding hemorrhoids Epistaxis Fibromyalgia HTN (hypertension) Insomnia Lumbar degenerative disc disease Mild recurrent major depression Physical exam Polyarthralgia Right ankle sprain Right hip pain Spina bifida Thoracic spine pain Surgical History History of biopsy History of carpal tunnel surgery History of esophagogastroduodenoscopy (EGD) History of surgery of head Hx of colonoscopy Family History Family History Father Cancer Bone cancer Mother Stomach problems Sister No problems noted. Sister Diabetes Brother Diabetes Sleep apnea Bursitis Son No problems noted. Son No problems noted. Son No problems noted. Son Diabetes Daughter Diabetes Daughter No problems noted. Social History Social History Housing: Apartment Alcohol intake: former Year quit: 2010 Patient Tobacco Use Status: Never used Tobacco e-Cigarette/Vaping Use: Never Used Second Hand Smoke Exposure: No Advance Directives: No Advance Directives Information Provided: No service: No Current occupational status: disabled Cognitive needs: No Hearing needs: No Vision needs: Yes Physical Exam ED Vital Signs: Vital Signs - 24 hr 09/12/21 15:16 09/12/21 16:56 09/12/21 18:34 Temperature 96.7 F L 98.2 F Pulse Rate 83 83 75 Respiratory Rate 18 18 18 Blood Pressure 137/70 120/62 139/75 Pulse Oximetry 98 95 98 BMI result Body Mass Index 51.0 Const Other: Appearance: Alert. Oriented X3. No acute distress. Eyes: Pupils equal, round and reactive to light. ENT: Pharynx normal. Neck: Normal inspection. Neck supple. No lymph nodes noted. No crepitus CVS: Normal heart rate and rhythm. Pulses normal. Normal S1 and S2 Respiratory: No respiratory distress. Breath sounds normal. No Wheezing. No rales Abdomen: Soft , left lower quadrant pain palpation, no rebound, no guarding Skin: Skin warm and dry. Normal skin color. Normal skin turgor. Extremities: No lower extremity edema. No Lacerations. No Rash Neuro: Oriented X 3. No motor deficit. No sensory deficit. Moving all extremities. No slurred speech. CN 2 through 12 grossly intact Psych: calm, cooperative, normal affect Course Course Course Narrative: Patient has a mildly elevated white blood cell count. CT scan pending, patient is receiving IV fluids and IV pain medication Patient has a white blood cell count of 10.9. Patient is currently being treated for bronchitis/sinusitis with Augmentin. I discussed the CT scan with the patient, no acute findings. The lung findings described in the CT scan likely secondary to the respiratory process the patient is already being treated for. Patient has chronic microscopic hematuria. Patient states that he has been already evaluated by Urology. Otherwise, patient is feeling well, ready for discharge MDM - Abdominal Pain Lab Data Result diagrams: 09/12/21 15:43 09/12/21 15:43 Labs: Lab Results 09/12/21 09/12/21 09/12/21 Range/Units 15:43 15:43 15:43 WBC 10.9 H (4.8-10.8) X10*3/uL RBC 4.78 (4.60-5.80) X10*6/uL Hgb 13.9 L (14.0-18.0) g/dl Hct 42.2 (42.0-52.0) % MCV 88.3 (80.0-98.0) fL MCH 29.1 (27.0-33.0) pg MCHC 32.9 (31.0-36.0) g/dl RDW 12.5 (11.0-16.0) % Plt Count 421 H (160-400) X10*3/uL MPV 8.9 L (9.4-12.4) fL Immature Gran % (Auto) 0.8 H (0.0-0.4) % Neut % (Auto) 60.4 (45-73) % Lymph % (Auto) 27.1 (20-40) % [place] % (Auto) 7.2 (2-11) % Eos % (Auto) 3.9 (0-4) % Baso % (Auto) 0.6 (0-2) % Lymph # (Auto) 3.0 (1.2-4.9) X10*3/uL [place] # (Auto) 0.8 (0.1-1.2) X10*3/uL Eos # (Auto) 0.4 (0.0-0.4) X10*3/uL Baso # (Auto) 0.1 (0.0-0.2) X10*3/uL Abs Immat Gran (auto) 0.09 H (0.00-0.03) X10*3/uL Absolute Neuts (auto) 6.6 (2.0-8.3) x10*3/uL Absolute Nucleated RBC 0.000 (0.0-0.012) X10*3/uL Nucleated RBC % (auto) 0.0 (0.0-0.2) /100WBC Sodium 143 (135-145) mmol/L Potassium 4.0 (3.3-5.1) mmol/L Chloride 102 (96-108) mmol/L Carbon Dioxide 32 H (22-29) mmol/L Anion Gap 13 (12-20) BUN 20 H (9-16) mg/dL Creatinine 1.18 (0.5-1.4) mg/dL Estim Creat Clear Calc 94.7 Estimated GFR > 60 Random Glucose 93 (60-115) mg/dL Calcium 9.7 (8.4-10.2) mg/dL Total Bilirubin 0.4 (0.0-1.0) mg/dL AST 28 (5-37) U/L ALT 35 (0-40) U/L Alkaline Phosphatase 79 (39-117) U/L Total Protein 8.1 H (6.5-8.0) g/dL Albumin 4.3 (3.5-5.0) g/dL Lipase 20 (8-78) U/L Urine Color YELLOW Urine Appearance CLEAR Urine pH 5.5 (5.0-8.0) Ur Specific [place] 1.025 (1.005-1.025) Urine Protein NEG (NEG-TRACE) MG/DL Urine Glucose (UA) NEG (NEG) MG/DL Urine Ketones NEG (NEG) MG/DL Urine Blood 1+ H (NEG) Urine Nitrite NEG (NEG) Ur Leukocyte Esterase NEG (NEG) Urine RBC 0-2 (0) /HPF Urine WBC 0 (0-4) /HPF Ur Squamous Epith Cells TRACE /LPF Urine Bacteria NONE /LPF Imaging Data CT scan - abdomen: Radiologist's impression: TECHNIQUE: Multidetector volumetric images were obtained from the superior aspect of the liver through the pubic symphysis following administration 85 mL of Omnipaque 350 intravenous contrast. Sagittal and coronal reformatted images were obtained on the technologist's workstation.? Oral contrast: No This CT examination was performed using dose optimization techniques as appropriate, variously including the following: *Automated exposure control *Adjustment of mA and/or kV according to patient size (this includes techniques or standardized protocols for targeted exams where dose is matched to indication/reason for exam; i.e. extremities or head) *Use of iterative reconstruction technique DLP: 1175 mGy-cm FINDINGS: LUNG BASES: Nodularity with areas of tree-in-bud nodularity in both lung bases favoring an infectious/inflammatory process, question aspiration. The largest nodular opacity is in the subpleural left lung base measuring 9 mm. LIVER, GALLBLADDER, AND BILIARY TREE: The liver is normal in size, shape, and attenuation. No focal hepatic lesion or biliary ductal dilatation is present. Calcified granuloma in the posterior right lobe of the liver. The gallbladder is unremarkable with no evidence of radiopaque gallstones, gallbladder wall thickening, or obvious pericholecystic inflammatory changes.? PANCREAS: Unremarkable.? SPLEEN: Unremarkable.? ADRENAL GLANDS: Unremarkable.? KIDNEYS AND URETERS: The kidneys are normal in size, shape and attenuation. There is no hydronephrosis. Punctate nonobstructing calculus in the midpole of the right kidney. No ureteral calculi.? BLADDER: Unremarkable.? GASTROINTESTINAL TRACT: There is no bowel obstruction. A few scattered colonic diverticuli without diverticulitis. Normal appendix.? ABDOMINAL WALL: No significant hernia is appreciated.? LYMPH NODES: Normal. VASCULAR: Unremarkable. PELVIC VISCERA: Coarse calcifications in the normal sized prostate.? OSSEOUS STRUCTURES: Degenerative changes in the spine. No destructive bony lesions.? CT/CT abdomen pelvis w con IMPRESSION: No CT abnormality to explain the patient's left lower quadrant pain. Tree-in-bud nodularity in the lung bases suggesting underlying infectious/inflammatory process, question aspiration. The largest nodular opacity in the subpleural left lung base 9 mm. Correlate with history. Punctate nonobstructing right midpole renal calculus. A few scattered colonic diverticuli without diverticulitis.? ? Fleischner guidelines were followed. Discharge Plan Discharge Clinical Impression: Abdominal pain Patient Disposition: Home, Self-Care Instructions: Abdominal Pain (ED) Additional Instructions: Please follow-up with your primary care physician tomorrow. If you have any worsening or new symptoms, please return to the emergency room or call 911 Prescriptions: No Action cholecalciferol (vitamin D3) 25 mcg (1,000 unit) capsule 25 mcg PO DAILY 90 Days Qty: 90 3RF hydrochlorothiazide 25 mg tablet 25 mg PO QAM 90 Days Qty: 90 3RF cyanocobalamin (vitamin B-12) 500 mcg tablet 500 mcg PO DAILY Qty: 30 6RF vitamin A palmitate 10,000 unit tablet 20,000 unit PO DAILY 14 Days Qty: 28 0RF hydrocortisone [Proctozone-HC] 2.5 % cream with perineal applicator 1 appl TX BID Qty: 30 0RF (DME) gel cushion seat See Rx Instructions .Route .MEDSUPPLY Qty: 1 0RF Rx Instructions: As directed sennosides [Francesca-alcon] 8.6 mg tablet See Rx Instructions PO .COMPLEX PRN (Reason: constipation) 30 Days Qty: 90 4RF Rx Instructions: Take one tablet in the morning and two tablets at bedtime PO PRN constipation Linzess 145 mcg capsule 145 mcg PO BID Qty: 60 2RF duloxetine [Cymbalta] 60 mg capsule,delayed release(DR/EC) 60 mg PO DAILY 90 Days Qty: 90 2RF enalapril maleate 10 mg tablet 10 mg PO DAILY Qty: 90 1RF amoxicillin-pot clavulanate 875-125 mg tablet 1 tab PO BID 7 Days Qty: 14 0RF gabapentin 400 mg capsule 400 mg PO TID 30 Days Qty: 90 3RF hydrocortisone [Anusol-HC] 2.5 % cream with perineal applicator 1 appl TX BID-QID PRN0RF zolpidem 10 mg tablet 500f10 mg PO BEDTIME PRN0RF escitalopram oxalate 10 mg tablet 10 mg PO QAM 0RF pantoprazole 40 mg tablet,delayed release (DR/EC) 40 mg PO BID Qty: 90 3RF menthol-zinc oxide [Calmoseptine] 0.44-20.6 % ointment 1 appl topical QID PRN (Reason: wound healing) Qty: 113 0RF
[2021-09-12 16:23] LABS: Alanine Aminotransferase 35 U/L (0-40); Albumin Level 4.3 g/dL (3.5-5.0); Alkaline Phosphatase 79 U/L (39-117); Anion Gap 13 (12-20); Aspartate Amino Transferase 28 U/L (5-37); Bilirubin Total 0.4 mg/dL (0.0-1.0); Blood Urea Nitrogen 20 mg/dL (9-16); Calcium 9.7 mg/dL (8.4-10.2); Carbon Dioxide 32 mmol/L (22-29); Chloride 102 mmol/L (96-108); Creatinine Clr Calc Pharmacy 94.7; Estimated Glomerular Filt Rate > 60; Glucose Random 93 mg/dL (60-115); Sodium 143 mmol/L (135-145); Total Protein 8.1 g/dL (6.5-8.0)
[2021-09-12 16:31] LABS: Lipase 20 U/L (8-78)
[2021-09-12 16:39] LABS: RBC Urine 0-2 /HPF (0); Squamous Epithelial Cell Urine TRACE /LPF; WBC Urine 0 /HPF (0-4)
[2021-09-12] MEDS: ondansetron HCL 4 MG/2 ML VIAL IVPUSH (16:55)
[2021-09-12] MEDS: Morphine Sulfate 4 MG/ML CARTRIDGE IVPUSH (16:55)
[2021-09-12] MEDS: 0.9 % Sodium Chloride 1,000 ML 999 ML IVCONT (16:55)
[2021-09-12 16:56] VITALS: BP 120/62; PULSE 83; RESP 18; O2SAT 95
[2021-09-12] MEDS: iohexoL 350 MG/ML 100 ML INFUS..BTL IV (17:28)
[2021-09-12 18:34] VITALS: BP 139/75; PULSE 75; RESP 18; TEMP 36.8; O2SAT 98
== END 2021-09-12 19:47 | disposition home or self-care (01) ==
PROVIDERS: Emergency Provider Emergency Medicine; PCP Internal Medicine
DX: R10.32 Left lower quadrant pain (principal); R31.29 Other microscopic hematuria; J40 Bronchitis, not specified as acute or chronic; J32.9 Chronic sinusitis, unspecified; D72.829 Elevated white blood cell count, unspecified; I10 Essential (primary) hypertension
CPT/HCPCS: 36415; 74177; 80053; 81001; 83690; 85025; 96361; 96374; 96375; 99284; J2270; J2405; Q9967

== ENCOUNTER 2022-01-10 09:20 | Outpatient (REF) | payer OTHER, SELFPAY ==
--- NOTE | ~2022-01-10 | XR_ITS ---
EXAMINATION: XR KNEE, RIGHT XR CHEST CLINICAL INFORMATION: Pain in right knee and chest pain with dyspnea. COMPARISON: None TECHNIQUE: Right knee 3 views. Chest 2 views. FINDINGS: RIGHT KNEE: There is moderate loss of medial and patellofemoral compartment joint space with periarticular spurring. There is no visible acute fracture, dislocation or subluxation. No joint effusion seen. There are no loose bodies. CHEST: The lungs are well-expanded and clear of acute process. Heart size and pulmonary vascularity is normal. There is mild spondylosis dorsal spine. XR/XR chest 2V IMPRESSION: Moderate degenerative arthritic changes medial and patellofemoral compartment. No visible acute fracture or dislocation seen. No acute cardiopulmonary process seen.
--- NOTE | ~2022-01-10 | XR_ITS ---
EXAMINATION: XR KNEE, RIGHT XR CHEST CLINICAL INFORMATION: Pain in right knee and chest pain with dyspnea. COMPARISON: None TECHNIQUE: Right knee 3 views. Chest 2 views. FINDINGS: RIGHT KNEE: There is moderate loss of medial and patellofemoral compartment joint space with periarticular spurring. There is no visible acute fracture, dislocation or subluxation. No joint effusion seen. There are no loose bodies. CHEST: The lungs are well-expanded and clear of acute process. Heart size and pulmonary vascularity is normal. There is mild spondylosis dorsal spine. XR/XR knee RT 2V IMPRESSION: Moderate degenerative arthritic changes medial and patellofemoral compartment. No visible acute fracture or dislocation seen. No acute cardiopulmonary process seen.
[2022-01-10 09:35] LABS: MANUAL DIFF FLAG NO
[2022-01-10 11:00] LABS: Basophils Absolute Auto 0.1 X10*3/uL (0.0-0.2); Basophils Percent Auto 0.9 % (0-2); Eosinophils Absolute Auto 0.3 X10*3/uL (0.0-0.4); Eosinophils Percent Auto 2.9 % (0-4); Hematocrit 44.8 % (42.0-52.0); Hemoglobin 14.8 g/dl (14.0-18.0); Imm Gran Abs Auto 0.02 X10*3/uL (0.00-0.03); Imm Gran Pct Auto 0.2 % (0.0-0.4); Lymphocytes Absolute Auto 3.1 X10*3/uL (1.2-4.9); Lymphocytes Percent Auto 34.7 % (20-40); Mean Corpuscular Hemoglobin 28.6 pg (27.0-33.0); Mean Corpuscular Volume 86.5 fL (80.0-98.0); Mean Platelet Volume 9.3 fL (9.4-12.4); Monocytes Absolute Auto 0.8 X10*3/uL (0.1-1.2); Monocytes Percent Auto 8.4 % (2-11); Neutrophils Absolute Auto 4.8 x10*3/uL (2.0-8.3); Neutrophils Percent Auto 52.9 % (45-73); Platelet Count 385 X10*3/uL (160-400); Red Blood Count 5.18 X10*6/uL (4.60-5.80); Red Cell Distribution Width 12.4 % (11.0-16.0)
[2022-01-10 11:41] LABS: Alanine Aminotransferase 31 U/L (0-40); Albumin Level 4.4 g/dL (3.5-5.0); Alkaline Phosphatase 70 U/L (39-117); Anion Gap 18 (12-20); Aspartate Amino Transferase 26 U/L (5-37); Bilirubin Total 0.6 mg/dL (0.0-1.0); Blood Urea Nitrogen 19 mg/dL (9-16); Calcium 9.5 mg/dL (8.4-10.2); Carbon Dioxide 26 mmol/L (22-29); Chloride 99 mmol/L (96-108); Cholesterol 208 mg/dL; Estimated Glomerular Filt Rate > 60; Glucose Fasting 112 mg/dL (60-99); HDL Cholesterol 46 mg/dL; LDL Cholesterol Calculated 142 mg/dl; Sodium 139 mmol/L (135-145); Total Protein 7.9 g/dL (6.5-8.0); Triglycerides 104 mg/dL
[2022-01-10 11:48] LABS: Folate 11.5 ng/mL (> or = 4.0); Vitamin B12 406 pg/mL (200-900)
[2022-01-10 12:03] LABS: PSA,Total (Free>4and<10) 0.26 ng/mL (0.00-4.00); Thyroid Stimulating Hormone 2.39 uIU/mL (0.32-4.0); Vitamin D 25-OH Total 32.7 ng/mL (>30)
[2022-01-15 16:26] LABS: Vitamin D 25-OH, D2 <4 ng/mL; Vitamin D 25-OH, D3 29 ng/mL; Vitamin D 25-OH, Total 29 ng/mL (30-100)
[2022-01-15 21:21] LABS: Intrinsic Factor Antibodies Negative (Negative)
[2022-01-16 13:33] LABS: Parietal Cell Antibody 47.5 Unit (<=20.0)
== END 2022-01-10 09:21 | disposition home or self-care (01) ==
LOC: HO.XRAY 09:20
PROVIDERS: PCP Internal Medicine; Visit Provider Internal Medicine
DX: Z12.5 Encounter for screening for malignant neoplasm of prostate (principal); M25.561 Pain in right knee; R06.00 Dyspnea, unspecified; E66.01 Morbid (severe) obesity due to excess calories; E53.8 Deficiency of other specified B group vitamins; D64.9 Anemia, unspecified; E78.5 Hyperlipidemia, unspecified; E55.9 Vitamin D deficiency, unspecified
CPT/HCPCS: 36415; 71046; 73560; 80053; 80061; 82306; 82607; 82746; 83516; 84153; 84443; 85025; 86340

== ENCOUNTER → 2022-02-01 14:09 | Outpatient (BNVA) | payer OTHER, SELFPAY | PROVIDERS: PCP Internal Medicine; Visit Provider Orthopaedic Surgery | DX: M17.11 Unilateral primary osteoarthritis, right knee (principal); E66.01 Morbid (severe) obesity due to excess calories; R73.02 Impaired glucose tolerance (oral); Z68.43 Body mass index [BMI] 50.0-59.9, adult | CPT/HCPCS: 20610; 99202; J1100 ==

== ENCOUNTER 2022-03-13 14:00 | Outpatient (RCR) | payer OTHER, SELFPAY ==
--- NOTE | 2022-02-16 16:05 | MHC.PT.EP ---
[facility] [place] [facility] [place] [facility] [place] [facility] [address] Carmen Lee [address] [phone] F: [phone] F: [phone] F: [phone] F: [phone] Physical Therapy Plan of Care Date of Evaluation: Date of Surgery: NA Diagnosis: INTERVERTEBRAL DISC DEGENERATION THORACIC REGION Assessment: Pt IS 51 YO M REFERRED TO PT FROM DR TORRE (PAIN MANAGEMENT) WITH INTERVERTEBRAL DISC DEGENERATION THORACIC SPINE. 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 PRESENTS WITH POOR POSTURE AND OVERALL DECREASED STRENGTH AND FLEXIBILITY. AMBULATES WITH [facility]. DOES NOT WORK AT THIS TIME. HAS HAD PT IN PAST FOR NECK WITH GOOD RESULTS. OF NOTE, RECENTLY SAW ORTHO FOR KNEE PAIN WITH INJECTION WITH SOME RELIEF (MAY GET REFERRAL FOR KNEE PAIN ALSO). SHOULD BENEFIT FROM PT TO ADDRESS THESE ISSUES Frequency and Duration: The patient will be seen 2X/WK X 6 WKS Short Term Goals: 1. INCREASED AWARENESS POSTURE/BACK CARE 2. I HEP WITH DC EX PLAN Senior Living Goals: 1. DECREASED BACK PAIN AT LEAST 50% WITH ADLS 2. IMPROVED MOD OSWESTRY (47/50 SOC) Treatment Plan: Modalities to reduce pain, spasms and effusion. Manual therapy to restore motion and function. Therapeutic exercise to improve strength and flexibility. Neuromuscular re-education for posture and balance. Therapeutic activities to return to functional activities of daily living. Electronically signed by: ERIN PALMA PT Please sign and return to therapist. Thank you for your referral.
--- NOTE | 2022-04-04 15:02 | MHC.PT.DC ---
[facility] [place] Office [place] Office [place] Office [address] Carmen Lee [address] [phone] F: [phone] F: [phone] F: [phone] F: [phone] Physical Therapy Discharge Report Diagnosis: INTERVERTEBRAL DISC DEGENERATION THORACIC REGION Date of Surgery: NA Date of Evaluation: 02/16/22 Date of Discharge: 04/04/22 Treatments to Date: 7 Cancellations to Date: No Shows to Date: Discharge Status: Independent with HEP Patient Elected to Stop Recommend MD Follow-up Discharge Summary: PER LAST PT NOTE FROM 03/13/22 MIN BENEFIT FROM PT, MAY HAVE FU WITH MD ON SATURDAY (?). POOR POSTURE, RELIEF WITH TB ROLLER' PLAN WAS TO REV GOALS AT NEXT SESSION FOR POSSIBLE DC, BUT Pt NO SHOWED APPT. WILL DC AT THIS TIME WITH HEP BUT ONLY MINIMAL RELIEF FROM PT Electronically signed by: ERIN PALMA PT Please sign and return to therapist. Thank you for your referral.
== END 2022-04-04 15:02 | disposition home or self-care (01) ==
LOC: HO.PT 14:00
PROVIDERS: PCP Internal Medicine; Visit Provider Internal Medicine
DX: M51.34 Other intervertebral disc degeneration, thoracic region (principal)
CPT/HCPCS: 97110; 97140; 97161

== ENCOUNTER 2022-03-14 08:56 | Day surgery (SDC) | payer OTHER, SELFPAY ==
[2022-02-27 10:18] VITALS: BMI 52.0
[2022-02-28 10:22] VITALS: BMI 50.4
--- NOTE | 2022-03-13 09:09 | P.CONAN_ITS ---
Documented by User: Netta Shields NP 03/13/22 09:12 HPI - Anesthesia Eval Consult details Narrative: 51yo M for Upper Endoscopy Elevated bmi PMFSH Active Problems Active Problems: All Active Problems (Updated 02/28/22 @ 10:18 by Cuca Stanley, RN) Chronic idiopathic constipation (Acute) Grade III hemorrhoids (Acute) GERD (gastroesophageal reflux disease) (Acute) Dysphagia (Acute) Degenerative arthritis of thoracic spine (Acute) Thoracic degenerative disc disease (Acute) Spondylolisthesis, lumbar region (Acute) Morbid obesity (Acute) Depression screening (Acute) MDD (major depressive disorder) (Acute) Morbid obesity (Acute) Hemorrhoid (Acute) Viral illness (Acute) Sore throat (viral) (Acute) Impaired glucose tolerance (Acute) Osteoarthritis of right knee (Acute) Super-super obese (Acute) Mild recurrent major depression (Acute) Physical exam (Acute) Bleeding hemorrhoids (Acute) Insomnia (Acute) Lumbar degenerative disc disease (Acute) Thoracic spine pain (Acute) Right hip pain (Acute) B12 deficiency (Acute) Spina bifida (Acute) Epistaxis (Acute) Right ankle sprain (Acute) Fibromyalgia (Acute) Polyarthralgia (Acute) HTN (hypertension) (Acute) Past Medical History Medical History (Updated 02/28/22 @ 10:18 by Cuca Stanley RN) Abdominal bloating Arthritis B12 deficiency Bleeding hemorrhoids Epistaxis Fibromyalgia HTN (hypertension) Insomnia Lumbar degenerative disc disease Mild recurrent major depression Physical exam Polyarthralgia Right ankle sprain Right hip pain Spina bifida Thoracic spine pain Family History Family History Father Cancer Bone cancer Mother Stomach problems Sister No problems noted. Sister Diabetes Brother Diabetes Sleep apnea Bursitis Son No problems noted. Son No problems noted. Son No problems noted. Son Diabetes Daughter Diabetes Daughter No problems noted. Surgical History Surgical History (Updated 02/28/22 @ 10:15 by Cuca Stanley RN) History of biopsy History of carpal tunnel surgery History of esophagogastroduodenoscopy (EGD) History of surgery of head Hx of colonoscopy Social History Social History Housing: Apartment Are you a primary hearing care professional to a significant other at home: No Do you presently have visiting nurse or other home services: Yes (spouse is FAMILY MEDICINE PHYSICIAN ASSISTANT) Alcohol intake: former Year quit: 2010 Patient Tobacco Use Status: Never used Tobacco e-Cigarette/Vaping Use: Never Used Second Hand Smoke Exposure: No Use of substances other than those prescribed or required for medical reasons: No Have you been hit, kicked, punched, or otherwise hurt by someone within the past year? If so, by whom?: No Are you DNR?: No Advance Directives: No Advance Directives Information Provided: Yes Advance Directives on File: No Recently lost weight without trying: No Poor oral hygiene: No service: No Current occupational status: disabled Cognitive needs: No Hearing needs: No Vision needs: Yes Meds Allergies Allergy/AdvReac Type Severity Reaction Status Date / Time No Known Allergies Allergy Verified 02/28/22 10:18 [No Known Allergies*] Home Medications Medication Instructions Recorded Confirmed Last Taken Type hydrocortisone 2.5 % topical cream 1 appl NC BID-QID PRN 05/18/20 01/15/22 Unknown History with perineal applicator (Anusol-HC) escitalopram oxalate 10 mg tablet 10 mg PO QAM 11/15/20 02/28/22 Unknown History zolpidem 10 mg tablet 500f10 mg PO BEDTIME PRN 11/15/20 01/15/22 Unknown History Exam Exam Date and Time: March 13, 2022 0909 Height,Weight and Vital Signs: Height 5 ft 5 in Weight 137.438 kg Pertinent Lab Results Pertinent Lab Results: Laboratory Tests 01/10/22 01/10/22 09:33 09:33 WBC 9.0 Hgb 14.8 Hct 44.8 Plt Count 385 Sodium 139 Potassium 4.0 Chloride 99 Carbon Dioxide 26 BUN 19 H Creatinine 1.21 Assessment and Plan Assessment Anesthesia Assessment: Chart Reviewed Documented by User: Danelle Paul MD 03/14/22 11:06 [facility] Past Medical History Medical History (Updated 02/28/22 @ 10:18 by Cuca Stanley RN) Abdominal bloating Arthritis B12 deficiency Bleeding hemorrhoids Epistaxis Fibromyalgia HTN (hypertension) Insomnia Lumbar degenerative disc disease Mild recurrent major depression Physical exam Polyarthralgia Right ankle sprain Right hip pain Spina bifida Thoracic spine pain Family History Family History Father Cancer Bone cancer Mother Stomach problems Sister No problems noted. Sister Diabetes Brother Diabetes Sleep apnea Bursitis Son No problems noted. Son No problems noted. Son No problems noted. Son Diabetes Daughter Diabetes Daughter No problems noted. Family history of problems with anesthesia: No Surgical History Surgical History (Updated 02/28/22 @ 10:15 by Cuca Stanley RN) History of biopsy History of carpal tunnel surgery History of esophagogastroduodenoscopy (EGD) History of surgery of head Hx of colonoscopy History of Problems with Anesthesia: No Social History Social History Housing: Apartment Are you a primary hearing care professional to a significant other at home: No Do you presently have visiting nurse or other home services: Yes (spouse is FAMILY MEDICINE PHYSICIAN ASSISTANT) Alcohol intake: former Year quit: 2010 Patient Tobacco Use Status: Never used Tobacco e-Cigarette/Vaping Use: Never Used Second Hand Smoke Exposure: No Use of substances other than those prescribed or required for medical reasons: No Have you been hit, kicked, punched, or otherwise hurt by someone within the past year? If so, by whom?: No Are you DNR?: No Advance Directives: No Advance Directives Information Provided: Yes Advance Directives on File: No Recently lost weight without trying: No Poor oral hygiene: No service: No Current occupational status: disabled Cognitive needs: No Hearing needs: No Vision needs: Yes Meds Allergies Allergy/AdvReac Type Severity Reaction Status Date / Time No Known Allergies Allergy Verified 02/28/22 10:18 [No Known Allergies*] Home Medications Medication Instructions Recorded Confirmed Last Taken Type hydrocortisone 2.5 % topical cream 1 appl NC BID-QID PRN 05/18/20 01/15/22 Unknown History with perineal applicator (Anusol-HC) escitalopram oxalate 10 mg tablet 10 mg PO QAM 11/15/20 02/28/22 Unknown History zolpidem 10 mg tablet 500f10 mg PO BEDTIME PRN 11/15/20 01/15/22 Unknown History Exam Airway Mallampati Class: III TM Dist: >3cm Neck ROM: Full Heart: rrr Lungs: cta Assessment and Plan Assessment Anesthesia Assessment: Anesthesia Plan Discussed and Chart Reviewed Final Anesthetic Review Family History of Problems with Anesthesia: No History of Problems with Anesthesia: No NPO: Yes ASA Class: III Final Preanesthetic Review: No Changes in Pt Med Stat, Meds/Allgs Chart Reviewed and Consent Obtained/Reviewed Patient Risk: Intermediate Procedure Risk: Intermediate Anesthetic Plan Anesthetic Plan: GA Disposition: Standard PACU
--- NOTE | 2022-03-13 14:31 | PC.NURSE ---
Spoke with patient's SO Aline by phone with Inspector Final Assembly Mechanical Bhavya Hanson BRITNEY, acts as HCP for patient but does not have documentation stating so and is not legally to patient. All next of kin are in [place]. Per BRITNEY patient unable to read when documents are read to him in Syriac he is able to comprehend them without issue. Also able to sign own name for legal consent. Per Anurag Jarquin, will have photonics engineer present at bedside & doctors will read/explain consents to patient, translated by hospital photonics engineer, then signed by patient if he understands & wishes to move forward.
[2022-03-14] VITALS (8 sets, daily range): BP systolic 106–150; BP diastolic 59–89; PULSE 73–98; RESP 14–20; TEMP 36.3–36.7; O2SAT 91–99
[2022-03-14] MEDS: Lactated Ringers 1,000 ML 100 ML IVCONT (10:15)
--- NOTE | 2022-03-14 11:12 | MHC.SHP ---
Pre-Procedural Eval Section A Date of Service: 03/14/22 Section B Chief Complaint: Dysphagia Details of Present Illness: 51y.o obese M with hx of reflux and intermittent dysphagia here for EGD. No N,V, regurgitation, odynophagia or unintentional weight loss. upper GI series 01/2021 [id number] gastroesophageal reflux without hiatal hernia. Prominent anterior cervical esophageal web and prominent cricoesophageal sphincter without any evidence of obstruction. Relevant Family History (Specify if Yes): No Present Medications: see Short Stay Collaborative assessment Medical History: No relevant PMH ( Arthritis B12 deficiency Bleeding hemorrhoids Epistaxis Fibromyalgia HTN (hypertension) Insomnia Lumbar degenerative disc disease Polyarthralgia Right ankle sprain Right hip pain Spina bifida Thoracic spine pain) Allergies: Allergies Allergy/AdvReac Type Severity Reaction Status Date / Time No Known Allergies Allergy Verified 02/28/22 10:18 [No Known Allergies*] Review of Systems Review of Systems Comment: 10 point ROS negative except above Exam Exam Comment: Gen appear: No acute distress, with obesity HEENT: no icterus Chest: No overt resp distress Abd: soft, nontender, nondistended Psych: Stable affect, answering questions appropriately Neuro: A/Ox3 noted to move all extremities spontaneously Ext: peripheral edema Plan I have reviewed the history and physical and performed a pertinent physical examination on my patient. No changes have occurred unless specified.
--- NOTE | 2022-03-14 12:36 | P.OP_ITS ---
Operative Note Operative Note Date of Service: 03/14/22 Narrative: Procedure: Esophagogastroduodenoscopy Endoscopist: Dianne Fontanez MD Indication: Dysphagia Anesthesia Provider: Trini Sierra CRNA Anesthesia Type: General anesthesia ?? EGD Procedure:?? The procedure, indications, preparation and potential complications were reviewed with the patient, who indicated understanding and gave written informed consent to proceed. A physical exam was performed. The patient was electively intubated for airway protection the anesthesiologist. The endoscope was introduced through the mouth, and advanced to the second part of duodenum. The mucosa was carefully examined on slow withdrawal of the endoscope. The patient tolerated the procedure well. There were no immediate complications.? ? EGD Findings:? * Esophagus:? Normal mucosa noted in the entire esophagus. The Z line was at 40cm. Middle and lower esophagus forceps biopsies were obtained to rule out eosinophilic esophagitis. * Stomach:?A few antral nodules were noted in the antrum. Cold forceps biopsies were obtained from the nodules. Cold forceps random gastric biopsies were also taken to rule out H Pylori infection. * Duodenum:? Normal mucosa was noted in the whole of the examined duodenum. Biopsies were taken from duodenal bulb and second portion of the duodenum to rule out celiac sprue. Additional intervention:?A wire guided Savary-Kuldeep bougie was introduced at 18 mm. No resistance was noted to insertion. The gastroscope was then reintroduced through the mouth. No heme or tear was noted on relook. ? EGD Impressions:? * Normal esophagus (biopsy) (dilation) * Antral nodules (biopsy) * Normal duodenum (biopsy) ?? Recommendations:?? * No esophageal stenosis/stricture seen or felt on this exam. Empiric dilation performed as above. * Follow biopsy results. Our office will call or send a letter with results within 7-10 days. * If H pylori +, patient will be prescribed eradication therapy followed by test of cure. * Avoid NSAIDs. Above has been reviewed with the patient. Relevant educational hand outs were provided at discharge.
== END 2022-03-14 14:55 | disposition home or self-care (01) ==
PROVIDERS: PCP Internal Medicine; Visit Provider Internal Medicine
PROC: 0DJ08ZZ Inspection of Upper Intestinal Tract, Via Natural or Artificial Opening Endoscopic (ICD-10-PCS; CPT 43235; principal; 2022-03-14 12:30)
DX: K21.9 Gastro-esophageal reflux disease without esophagitis (principal); R13.10 Dysphagia, unspecified; K31.7 Polyp of stomach and duodenum; K29.80 Duodenitis without bleeding; K64.8 Other hemorrhoids; I10 Essential (primary) hypertension; E53.8 Deficiency of other specified B group vitamins; M79.7 Fibromyalgia; M25.50 Pain in unspecified joint; E66.9 Obesity, unspecified
CPT/HCPCS: 43239; 88305; 88342; C1769; J0330; J1100; J2405; J3010

== ENCOUNTER → 2022-04-02 14:33 | Outpatient (BNVA) | payer OTHER, SELFPAY | PROVIDERS: PCP Internal Medicine; Visit Provider Internal Medicine Gastroenterology | DX: K21.9 Gastro-esophageal reflux disease without esophagitis (principal); K29.70 Gastritis, unspecified, without bleeding | CPT/HCPCS: 99212 ==

== ENCOUNTER 2022-05-07 13:39 | Outpatient (REF) | payer OTHER, SELFPAY ==
--- NOTE | ~2022-05-07 | XR_ITS ---
EXAMINATION: XR KNEE, BILATERAL XR KNEE, RIGHT CLINICAL INFORMATION: Right knee pain. COMPARISON: None TECHNIQUE: AP bilateral knee standing. Right knee 2 views. FINDINGS: AP BILATERAL KNEE: There is moderate loss of medial compartment right knee joint space. The lateral compartment joint space is normal. The medial and lateral compartment left knee joint is normal. No loose bodies, fracture or dislocation seen. The soft tissues are normal. RIGHT KNEE: There is loss of patellofemoral compartment joint space without bony erosive changes. No loose bodies or joint effusion seen. XR/XR knee RT 2V IMPRESSION: Mild degenerative arthritic changes medial and patellar femoral compartment right knee. No acute fracture or dislocation seen. The left knee is unremarkable.
--- NOTE | ~2022-05-07 | XR_ITS ---
EXAMINATION: XR KNEE, BILATERAL XR KNEE, RIGHT CLINICAL INFORMATION: Right knee pain. COMPARISON: None TECHNIQUE: AP bilateral knee standing. Right knee 2 views. FINDINGS: AP BILATERAL KNEE: There is moderate loss of medial compartment right knee joint space. The lateral compartment joint space is normal. The medial and lateral compartment left knee joint is normal. No loose bodies, fracture or dislocation seen. The soft tissues are normal. RIGHT KNEE: There is loss of patellofemoral compartment joint space without bony erosive changes. No loose bodies or joint effusion seen. XR/XR knee standing BI IMPRESSION: Mild degenerative arthritic changes medial and patellar femoral compartment right knee. No acute fracture or dislocation seen. The left knee is unremarkable.
== END 2022-05-07 13:40 | disposition home or self-care (01) ==
LOC: HO.HOSX 13:39
PROVIDERS: Visit Provider Orthopaedic Surgery
DX: M17.11 Unilateral primary osteoarthritis, right knee (principal); E66.01 Morbid (severe) obesity due to excess calories; R73.02 Impaired glucose tolerance (oral)
CPT/HCPCS: 73560; 73565; 99212

== ENCOUNTER 2022-05-15 | Outpatient (REF) | payer OTHER, SELFPAY ==
[2022-05-17 13:57] LABS: H Pylori Breath Test Negative (Negative)
== END 2022-05-15 00:01 | disposition home or self-care (01) ==
LOC: HO.LNP
PROVIDERS: Visit Provider Internal Medicine Gastroenterology
DX: A04.8 Other specified bacterial intestinal infections (principal)
CPT/HCPCS: 83013

== ENCOUNTER → 2022-05-15 13:00 | Outpatient (BNVA) | payer OTHER, SELFPAY | PROVIDERS: PCP Internal Medicine; Visit Provider Internal Medicine Gastroenterology | DX: Z11.0 Encounter for screening for intestinal infectious diseases (principal) | CPT/HCPCS: 99211 ==

== ENCOUNTER 2022-05-23 08:50 | Outpatient (REF) | payer OTHER, SELFPAY ==
[2022-05-23 09:37] LABS: Alanine Aminotransferase 23 U/L (0-40); Albumin Level 4.4 g/dL (3.5-5.0); Alkaline Phosphatase 89 U/L (39-117); Anion Gap 10 (12-20); Aspartate Amino Transferase 20 U/L (5-37); Bilirubin Total 0.4 mg/dL (0.0-1.0); Blood Urea Nitrogen 19 mg/dL (9-16); Calcium 9.3 mg/dL (8.4-10.2); Carbon Dioxide 33 mmol/L (22-29); Chloride 101 mmol/L (96-108); Estimated Glomerular Filt Rate > 60; Glucose Fasting 93 mg/dL (60-99); Potassium 3.9 mmol/L (3.3-5.1); Sodium 140 mmol/L (135-145); Total Protein 7.7 g/dL (6.5-8.0)
== END 2022-05-23 08:51 | disposition home or self-care (01) ==
LOC: HO.LAB 08:50
PROVIDERS: PCP Internal Medicine; Visit Provider Internal Medicine
DX: R73.02 Impaired glucose tolerance (oral) (principal)
CPT/HCPCS: 36415; 80053

== ENCOUNTER 2022-06-06 14:00 | Outpatient (RCR) | payer OTHER, SELFPAY ==
--- NOTE | 2022-06-13 14:00 | MHC.PT.DC ---
[facility] [place] Office [place] Office [place] Office [address] Carmen Lee [address] [phone] F: [phone] F: [phone] F: [phone] F: [phone] Physical Therapy Discharge Report Diagnosis: RIGHT KNEE OA Date of Surgery: Date of Evaluation: 05/09/22 Date of Discharge: 06/07/22 Treatments to Date: 8 Cancellations to Date: 0 No Shows to Date: 0 Discharge Status: Achieved Goals Improved Function Independent with HEP Discharge Summary: Pt presents reporting the exercises have helped alot, the knee feels better. Pt continues to demonstrate compliance with consistent program, Improvement in roberto to exercises since last session. D/C I with HEP today. Electronically signed by: Leesa Kelley PT, DPT Please sign and return to therapist. Thank you for your referral.
== END 2022-06-13 14:03 | disposition home or self-care (01) ==
LOC: HO.PT 14:00
PROVIDERS: PCP Internal Medicine; Visit Provider Orthopaedic Surgery
DX: M17.11 Unilateral primary osteoarthritis, right knee (principal); E66.01 Morbid (severe) obesity due to excess calories; A04.8 Other specified bacterial intestinal infections
CPT/HCPCS: 97110; 97161

== ENCOUNTER → 2022-08-20 13:36 | Outpatient (BNVA) | payer OTHER, SELFPAY | PROVIDERS: PCP Internal Medicine; Visit Provider Internal Medicine Gastroenterology | DX: K21.9 Gastro-esophageal reflux disease without esophagitis (principal); A04.8 Other specified bacterial intestinal infections; K59.00 Constipation, unspecified | CPT/HCPCS: 99212 ==

== ENCOUNTER 2022-08-27 06:55 | Outpatient (REF) | payer OTHER, SELFPAY ==
[2022-08-27 08:14] LABS: Alanine Aminotransferase 30 U/L (0-40); Albumin Level 4.4 g/dL (3.5-5.0); Alkaline Phosphatase 92 U/L (39-117); Anion Gap 15 (12-20); Aspartate Amino Transferase 24 U/L (5-37); Bilirubin Total 0.5 mg/dL (0.0-1.0); Blood Urea Nitrogen 14 mg/dL (9-16); Calcium 9.5 mg/dL (8.4-10.2); Carbon Dioxide 28 mmol/L (22-29); Chloride 102 mmol/L (96-108); Cholesterol 190 mg/dL; Estimated Glomerular Filt Rate > 60; Glucose Fasting 112 mg/dL (60-99); HDL Cholesterol 49 mg/dL; LDL Cholesterol Calculated 120 mg/dl; Sodium 141 mmol/L (135-145); Total Protein 7.5 g/dL (6.5-8.0); Triglycerides 108 mg/dL
[2022-08-27 08:45] LABS: Folate 9.4 ng/mL (> or = 4.0); Vitamin B12 389 pg/mL (200-900); Vitamin D 25-OH Total 37.6 ng/mL (>30)
== END 2022-08-27 06:56 | disposition home or self-care (01) ==
LOC: HO.LAB 06:55
PROVIDERS: PCP Internal Medicine; Visit Provider Internal Medicine
DX: E66.01 Morbid (severe) obesity due to excess calories (principal); E53.8 Deficiency of other specified B group vitamins; E55.9 Vitamin D deficiency, unspecified
CPT/HCPCS: 36415; 80053; 80061; 82306; 82607; 82746

== ENCOUNTER 2022-09-10 09:48 | Outpatient (REF) | payer OTHER, SELFPAY ==
--- NOTE | ~2022-09-10 | XR_ITS ---
EXAMINATION: XR SHOULDER, LEFT CLINICAL INFORMATION: Pain COMPARISON: None available. TECHNIQUE: AP external rotation, Grashey, scapular Y, and axillary views of the left shoulder. FINDINGS: Bone alignment is normal. No fracture or dislocation. There is at the acromioclavicular joint. Normal glenohumeral joint. Soft tissue calcification adjacent to the greater tuberosity suggestive of calcific tendinitis or bursitis. XR/XR shoulder LT min 2V IMPRESSION: Arthritis at the glenohumeral joint. Soft tissue calcification suggestive of calcific tendinitis or bursitis.
== END 2022-09-10 09:49 | disposition home or self-care (01) ==
LOC: HO.XRAY 09:48
PROVIDERS: PCP Internal Medicine; Visit Provider Internal Medicine
DX: M25.512 Pain in left shoulder (principal)
CPT/HCPCS: 73030

== ENCOUNTER → 2022-10-03 11:03 | Outpatient (BNVA) | payer OTHER, SELFPAY | PROVIDERS: PCP Internal Medicine; Visit Provider Physician Assistant | DX: M19.012 Primary osteoarthritis, left shoulder (principal); M75.32 Calcific tendinitis of left shoulder | CPT/HCPCS: 20610; 99202; J1020 ==

== ENCOUNTER 2023-02-05 16:22 | Emergency (ER) | payer OTHER, SELFPAY ==
--- NOTE | ~2023-02-05 | US_ITS ---
EXAMINATION: US GALLBLADDER CLINICAL INFORMATION: Right upper quadrant. COMPARISON: CT abdomen pelvis 09/12/2021 TECHNIQUE: Real-time imaging of the gallbladder only. FINDINGS: GALLBLADDER: The gallbladder is physiologically distended without evidence of stones, sludge, polyps, wall thickening or pericholecystic fluid. The prison keeper reports that the patient is tender over the gallbladder COMMON BILE DUCT: Normal in caliber measuring 0.3 cm in diameter. US/US abdomen limited IMPRESSION: Normal appearing gallbladder, but with a positive Sweeney's sign.
[2023-02-05 16:37] VITALS: BP 148/78; PULSE 84; RESP 18; TEMP 36.6; O2SAT 96; BMI 51.0
--- NOTE | 2023-02-05 16:39 | ED.ABDPAIN ---
HPI - Abdominal Pain General Chief Complaint: Abdominal Pain Stated Complaint: Stomach pain 3 days Time Seen by Provider: 02/05/23 22:25 Source: patient and legal adviser Mode of arrival: ambulatory History of Present Illness HPI narrative: 52-year-old male who states that since Saturday he has had epigastric/right upper quadrant discomfort with associated nausea or vomiting that was far worse on Saturday and he has had limited intake due to the discomfort, he also reports some chills but states that today his symptoms have significantly improved. His symptoms started after eating pizza. Related Data Home Medications Medication Instructions Recorded Confirmed escitalopram oxalate 10 mg tablet 10 mg PO QAM 11/15/20 10/03/22 zolpidem 10 mg tablet 500f10 mg PO BEDTIME PRN 11/15/20 10/03/22 Previous Rx's Medication Instructions Recorded vitamin A palmitate 3,000 mcg 20,000 unit PO DAILY 2 weeks #28 01/25/21 (10,000 unit) tablet tabs menthol 0.44 %-zinc oxide 20.6 % 1 appl topical QID PRN wound 03/23/21 topical ointment (Calmoseptine) healing #113 grams gel cushion seat #1 ea 05/16/21 sennosides 8.6 mg tablet (Francesca-alcon) See Rx Instructions PO .COMPLEX 11/06/21 PRN constipation 30 days #90 tabs hydrocortisone 2.5 % topical cream 1 appl DE BID #30 grams 03/14/22 with perineal applicator (Proctozone-HC) bismuth subsalicylate 262 mg 2 tab PO QID 14 days #112 tabs 04/02/22 chewable tablet tetracycline 500 mg capsule 500 mg PO Q6H 14 days #56 caps 04/02/22 duloxetine 60 mg capsule,delayed 60 mg PO DAILY 90 days #90 caps 06/02/22 release (Cymbalta) gabapentin 400 mg capsule 400 mg PO TID 30 days #90 caps 09/05/22 enalapril maleate 10 mg tablet 10 mg PO DAILY #90 tabs 09/14/22 cholecalciferol (vitamin D3) 25 25 mcg PO DAILY 90 days #90 caps 09/23/22 mcg (1,000 unit) capsule pantoprazole 40 mg tablet,delayed 40 mg PO BID 90 days #180 tabs 10/24/22 release linaclotide 145 mcg capsule 145 mcg PO DAILY #30 caps 12/31/22 (Linzess) hydrochlorothiazide 25 mg tablet 25 mg PO QAM 90 days #90 tabs 01/04/23 ondansetron HCl 4 mg tablet 4 mg PO Q8H PRN nausea and 02/06/23 vomiting 4 days #10 tabs Allergies Allergy/AdvReac Type Severity Reaction Status Date / Time No Known Allergies Allergy Verified 10/03/22 11:31 [No Known Allergies*] Review of Systems Review of Systems Pertinent positives and negatives as stated in HPI [facility] Past Medical History Source: nursing notes reviewed Medical History Abdominal bloating Mild recurrent major depression Physical exam Bleeding hemorrhoids Insomnia Lumbar degenerative disc disease Thoracic spine pain Right hip pain B12 deficiency Spina bifida Epistaxis Right ankle sprain Polyarthralgia Fibromyalgia Arthritis HTN (hypertension) Surgical History History of esophagogastroduodenoscopy (EGD) Hx of colonoscopy History of surgery of head History of carpal tunnel surgery History of biopsy Family History Family History Father Cancer Bone cancer Mother Stomach problems Sister No problems noted. Sister Diabetes Brother Diabetes Sleep apnea Bursitis Son No problems noted. Son No problems noted. Son No problems noted. Son Diabetes Daughter Diabetes Daughter No problems noted. Social History Social History Housing: Apartment Are you a primary rn intensive care unit to a significant other at home: No Do you presently have visiting nurse or other home services: Yes (spouse is VISUAL LEAD) Alcohol intake: never Patient Tobacco Use Status: Never used Tobacco Smoked in Last 30 Days: No e-Cigarette/Vaping Use: Never Used Second Hand Smoke Exposure: No Use of substances other than those prescribed or required for medical reasons: No Advance Directives: No Advance Directives Information Provided: No service: No Current occupational status: disabled Cognitive needs: No Hearing needs: No Vision needs: Yes Physical Exam ED Vital Signs: Vital Signs - 24 hr 02/05/23 16:37 02/05/23 22:40 Temperature 97.8 F 99 F Pulse Rate 84 82 Respiratory Rate 18 16 Blood Pressure 148/78 H 112/47 L Pulse Oximetry 96 95 Oxygen Delivery Method Room Air Room Air BMI result Body Mass Index 51.0 VITAL SIGNS: Reviewed. GENERAL: Well developed, well nourished, in no acute distress. HEAD: Normocephalic/atraumatic EYES: PERRLA, EOMI EARS: Ext canals without abnormality NOSE: Nares patent bilateral OROPHARYNX: no oral lesions noted, posterior pharynx clear NECK: Supple, no adenopathy LUNGS: Normal breath sounds. No adventitious sounds or accessory muscle use. SpO2<95> CARDIOVASCULAR: Regular rate and rhythm without noted murmurs ABDOMEN: Soft, non-tender, non-distended with bowel sounds. MUSCULOSKELETAL: No tenderness, deformities, or effusions noted on gross inspection. EXTREMITIES: No cyanosis, clubbing or edema. SKIN: Inspection of the skin reveals no rashes NEUROLOGIC: Alert and oriented x 4. Strength and sensation to light touch were grossly intact x 4. Course Course Course Narrative: This is an RME: Additional HPI, ROS, PE not included below will be deferred to primary provider. This is a 9-cp[age]rl-male, with a hx of GERD, MDD, depression, HTN, presenting to the emergency department with a complaint of abdominal pain x 2 days. He states that he had bad pizza, and woke up with nausea abdominal. He states that he feels like something is stuck there. He states pain radiates into his back. no fevers. Endorses vomiting. Tenderness palpation in the epigastrium and right upper quadrant. Vital signs within normal limits Plan: Labs, UA, ultrasound right upper quadrant Medical Decision Making Medical Decision Making MDM Narrative: 52-year-old male with history and clinical presentation, DDX: Food poisoning, gastritis, ulcer, pancreatitis, cholecystitis. I reviewed all investigations and hematologic indices are negative for leukocytosis or left shift, there is no anemia or thrombocytopenia. Patient is afebrile. Chemistry indices are negative for acute findings there is no IVELISSE and there is no electrolyte or liver enzyme abnormalities, high sensitivity troponin is undetectable. Urinalysis is negative for UTI or hematuria. Ultrasound negative for cholecystitis and otherwise my interpretation is in agreement with radiology's impression. Patient received a GI cocktail as well as Carafate on and on re-evaluation is feeling much improved and instructed him to follow-up with his primary care provider. Differential Diagnosis Differential Diagnoses: The differential diagnosis associated with the presentation includes Please see the discussion above Admission/Observation Consideration of admission/observation: Escalation of care including admission/observation considered Please see the discussion above Lab Data MDM Lab Attestation statement: I reviewed the patient's lab results. Please see the discussion above 02/05/23 17:07 02/05/23 17:07 Labs: Lab Results 02/05/23 Range/Units 17:07 WBC 10.0 (4.8-10.8) X10*3/uL RBC 5.06 (4.60-5.80) X10*6/uL Hgb 14.7 (14.0-18.0) g/dl Hct 43.5 (42.0-52.0) % MCV 86.0 (80.0-98.0) fL MCH 29.1 (27.0-33.0) pg MCHC 33.8 (31.0-36.0) g/dl RDW 12.6 (11.0-16.0) % Plt Count 343 (160-400) X10*3/uL MPV 9.0 L (9.4-12.4) fL Immature Gran % (Auto) 0.3 (0.0-0.4) % Neut % (Auto) 59.3 (45-73) % Lymph % (Auto) 26.1 (20-40) % [place] % (Auto) 9.2 (2-11) % Eos % (Auto) 4.6 H (0-4) % Baso % (Auto) 0.5 (0-2) % Lymph # (Auto) 2.6 (1.2-4.9) X10*3/uL [place] # (Auto) 0.9 (0.1-1.2) X10*3/uL Eos # (Auto) 0.5 H (0.0-0.4) X10*3/uL Baso # (Auto) 0.1 (0.0-0.2) X10*3/uL Abs Immat Gran (auto) 0.03 (0.00-0.03) X10*3/uL Absolute Neuts (auto) 5.9 (2.0-8.3) x10*3/uL Absolute Nucleated RBC 0.000 (0.0-0.012) X10*3/uL Nucleated RBC % (auto) 0.0 (0.0-0.2) /100WBC Sodium 138 (135-145) mmol/L Potassium 3.9 (3.3-5.1) mmol/L Chloride 102 (96-108) mmol/L Carbon Dioxide 26 (22-29) mmol/L Anion Gap 14 (12-20) BUN 12 (9-16) mg/dL Creatinine 1.04 (0.5-1.4) mg/dL Estim Creat Clear Calc 106.1 Estimated GFR > 60 Random Glucose 133 H (60-115) mg/dL Calcium 9.6 (8.4-10.2) mg/dL Magnesium 1.9 (1.6-2.6) mg/dL Total Bilirubin 0.3 (0.0-1.0) mg/dL Direct Bilirubin 0.1 (0.0-0.5) mg/dL AST 21 (5-37) U/L ALT 26 (0-40) U/L Alkaline Phosphatase 81 (39-117) U/L Troponin I High Sens < 2.7 (<3.5-35.0) ng/L Total Protein 7.9 (6.5-8.0) g/dL Albumin 4.3 (3.5-5.0) g/dL Lipase 46 (8-78) U/L Urine Color Yellow Urine Appearance Clear Urine pH 7.0 (5.0-9.0) Ur Specific [place] 1.015 (1.005-1.025) Urine Protein Negative (Neg-Trace) mg/dL Urine Glucose (UA) Negative (Negative) mg/dL Urine Ketones Negative (Negative) mg/dL Urine Blood Trace H (Negative) Urine Nitrite Negative (Negative) Ur Leukocyte Esterase Negative (Negative) Urine RBC 0-2 (0-2) /HPF Urine WBC 0-5 (0-5) /HPF Ur Squamous Epith Cells 0-2 (0-2) /HPF Urine Bacteria None Seen (None Seen) Hyaline Casts 0-2 (0-2) /LPF Radiology Impression Discussion of test interpretation with radiology: I have reviewed the radiologist's reading. Radiologist Impression: Please see the discussion above External Record Review External record reviewed: Outpatient record, Prior outpatient labs and Prior outpatient radiology Chronic Conditions Patient?s care impacted by: Hypertension Medications Administered Discontinued Medications Generic Name Dose Route Start Last Admin Trade Name Freq PRN Reason Stop Dose Admin Acetaminophen 975 mg 02/05/23 22:49 02/05/23 23:21 Acetaminophen 325 Mg Tablet PO 02/05/23 22:50 975 mg ONCE ONE Administration Ibuprofen 400 mg 02/05/23 22:49 02/05/23 23:21 Ibuprofen 400 Mg Tablet PO 02/05/23 22:50 400 mg ONCE ONE Administration Lidocaine/Diphenhydr/Alum/Mg/Simeth 10 ml 02/05/23 22:49 02/05/23 23:21 Mag&Al/Sim/Diphenhyd/Lidocaine 10 Ml Oral.Susp PO 02/05/23 22:50 10 ml ONCE ONE Administration Protocol Discharge Plan Discharge Clinical Impression: Gastritis Patient Disposition: Home, Self-Care Instructions: Gastritis (ED), Diet for Stomach Ulcers and Gastritis (ED) Additional Instructions: 1. Reanudar todos los medicamentos caseros seg?n lo recetado. 2. Se solano proporcionado allison receta para medicamentos contra las n?useas. 3. Rosalba un seguimiento con quiñones m?dico de atenci?n primaria a primera hora de la ma?linda. Regrese a la elias de emergencias si los s?ntomas empeoran. 1. Resume all home medications as prescribed. 2. A prescription for antinausea medication has been provided. 3. Please follow-up with your primary care doctor 1st thing in the morning. Return to the ER for any worsening symptoms. Prescriptions: New ondansetron HCl 4 mg tablet 4 mg PO Q8H PRN (Reason: nausea and vomiting) 4 Days Qty: 10 0RF No Action vitamin A palmitate 10,000 unit tablet 20,000 unit PO DAILY 14 Days Qty: 28 0RF (DME) gel cushion seat See Rx Instructions .Route .MEDSUPPLY Qty: 1 0RF Rx Instructions: As directed sennosides [Francesca-alcon] 8.6 mg tablet See Rx Instructions PO .COMPLEX PRN (Reason: constipation) 30 Days Qty: 90 4RF Rx Instructions: Take one tablet in the morning and two tablets at bedtime PO PRN constipation hydrocortisone [Proctozone-HC] 2.5 % cream with perineal applicator 1 appl DE BID Qty: 30 0RF duloxetine [Cymbalta] 60 mg capsule,delayed release(DR/EC) 60 mg PO DAILY 90 Days Qty: 90 2RF gabapentin 400 mg capsule 400 mg PO TID 30 Days Qty: 90 3RF enalapril maleate 10 mg tablet 10 mg PO DAILY Qty: 90 3RF cholecalciferol (vitamin D3) 25 mcg (1,000 unit) capsule 25 mcg PO DAILY 90 Days Qty: 90 3RF pantoprazole 40 mg tablet,delayed release (DR/EC) 40 mg PO BID 90 Days Qty: 180 3RF Linzess 145 mcg capsule 145 mcg PO DAILY Qty: 30 2RF hydrochlorothiazide 25 mg tablet 25 mg PO QAM 90 Days Qty: 90 3RF zolpidem 10 mg tablet 500f10 mg PO BEDTIME PRN escitalopram oxalate 10 mg tablet 10 mg PO QAM menthol-zinc oxide [Calmoseptine] 0.44-20.6 % ointment 1 appl topical QID PRN (Reason: wound healing) Qty: 113 0RF tetracycline 500 mg capsule 500 mg PO Q6H 14 Days Qty: 56 0RF bismuth subsalicylate 262 mg tablet,chewable 2 tab PO QID 14 Days Qty: 112 0RF Referrals: Linda Bo MD [Primary Care Provider] - Print Language: Icelandic
[2023-02-05 17:12] LABS: MANUAL DIFF FLAG NO
[2023-02-05 17:14] LABS: Basophils Absolute Auto 0.1 X10*3/uL (0.0-0.2); Basophils Percent Auto 0.5 % (0-2); Eosinophils Absolute Auto 0.5 X10*3/uL (0.0-0.4); Eosinophils Percent Auto 4.6 % (0-4); Hematocrit 43.5 % (42.0-52.0); Hemoglobin 14.7 g/dl (14.0-18.0); Imm Gran Abs Auto 0.03 X10*3/uL (0.00-0.03); Imm Gran Pct Auto 0.3 % (0.0-0.4); Lymphocytes Absolute Auto 2.6 X10*3/uL (1.2-4.9); Lymphocytes Percent Auto 26.1 % (20-40); Mean Corpuscular HGB Conc 33.8 g/dl (31.0-36.0); Mean Corpuscular Hemoglobin 29.1 pg (27.0-33.0); Monocytes Absolute Auto 0.9 X10*3/uL (0.1-1.2); Monocytes Percent Auto 9.2 % (2-11); Neutrophils Absolute Auto 5.9 x10*3/uL (2.0-8.3); Neutrophils Percent Auto 59.3 % (45-73); Platelet Count 343 X10*3/uL (160-400); Red Blood Count 5.06 X10*6/uL (4.60-5.80); Red Cell Distribution Width 12.6 % (11.0-16.0)
[2023-02-05 17:16] LABS: Appearance Urine Clear; Color Urine Yellow; Glucose Urine UA Negative (Negative); Leukocyte Esterase Urine Negative (Negative); Nitrite Urine Negative (Negative); Specific Gravity - Urine 1.015 (1.005-1.025); UMIC TRIGGER UACC YES; Urine Blood Trace (Negative); Urine Ketones Negative (Negative); Urine Protein Negative (Neg-Trace)
[2023-02-05 17:26] LABS: Bacteria Urine None Seen (None Seen); Hyaline Casts Urine 0-2 /LPF (0-2); RBC Urine 0-2 /HPF (0-2); Squamous Epithelial Cell Urine 0-2 /HPF (0-2); WBC Urine 0-5 /HPF (0-5)
[2023-02-05 17:44] LABS: Alanine Aminotransferase 26 U/L (0-40); Albumin Level 4.3 g/dL (3.5-5.0); Alkaline Phosphatase 81 U/L (39-117); Anion Gap 14 (12-20); Aspartate Amino Transferase 21 U/L (5-37); Bilirubin Direct 0.1 mg/dL (0.0-0.5); Bilirubin Total 0.3 mg/dL (0.0-1.0); Blood Urea Nitrogen 12 mg/dL (9-16); Calcium 9.6 mg/dL (8.4-10.2); Carbon Dioxide 26 mmol/L (22-29); Chloride 102 mmol/L (96-108); Creatinine Clr Calc Pharmacy 106.1; Estimated Glomerular Filt Rate > 60; Glucose Random 133 mg/dL (60-115); Lipase 46 U/L (8-78); Magnesium 1.9 mg/dL (1.6-2.6); Potassium 3.9 mmol/L (3.3-5.1); Sodium 138 mmol/L (135-145); Total Protein 7.9 g/dL (6.5-8.0); Troponin-I High Sensitivity < 2.7 ng/L (<3.5-35.0)
[2023-02-05 22:40] VITALS: BP 112/47; PULSE 82; RESP 16; TEMP 37.2; O2SAT 95
[2023-02-05] MEDS: Ibuprofen 400 MG TABLET PO (23:21)
[2023-02-05] MEDS: Acetaminophen 325 MG TABLET 975 MG PO (23:21)
[2023-02-05] MEDS: Mag&Al/Sim/Diphenhyd/Lidocaine 10 ML ORAL.SUSP PO (23:21)
--- NOTE | 2023-02-05 23:33 | PC.NURSE ---
Patient alert and oriented. Provider and staff certified medical coding specialist at bedside. Pt reports eating a pizza on Saturday and since then having 10/10 abdominal pain and feeling like he has something stuck in his stomach. PT has a history of gastritis. VSS, Medicated as per MAR. Call pulliam within reach. Plan of care on going.
== END 2023-02-06 01:11 | disposition home or self-care (01) ==
PROVIDERS: Physician Assistant Medical; Emergency Provider Student in an Organized Health Care Education/Training Program; PCP Internal Medicine
DX: K29.70 Gastritis, unspecified, without bleeding (principal); R10.11 Right upper quadrant pain; R11.2 Nausea with vomiting, unspecified; Z79.899 Other long term (current) drug therapy; I10 Essential (primary) hypertension; E66.9 Obesity, unspecified; Z68.43 Body mass index [BMI] 50.0-59.9, adult
CPT/HCPCS: 36415; 76705; 80048; 80076; 81001; 83690; 83735; 84484; 85025; 99284

== ENCOUNTER 2023-02-18 14:21 | Outpatient (AMB) | payer OTHER, SELFPAY ==
--- NOTE | 2023-02-18 14:44 | A.OFFVIS_ITS ---
Intake Vital Signs 02/18/23 14:48 Height 5 ft 5 in Weight 306 lb 7.08 oz BMI 51.0 BP 158/68 H Blood Pressure Location Lt radial Position Sitting Pulse 84 Intake Visit Reasons: 6 month fu Intake Note: Marquez presents in the office as a 6 month follow up. CC: He states that he was having reflux but he started the pill again and he feels better. Lsat Instructor Required: Yes Lsat Instructor Name: Lauren [id number] Allergies No Known Allergies [No Known Allergies*] Allergy (Verified 02/18/23 14:51) HPI 6 month fu HPI Details 52 yr old m with hx of H pylori here for f/u RECAP: Had been seeing [facility] for constipation, hemorrhoids and GERD rx: omeprazole 20 mg linszess and colace colonoscopy 2017---diverticulosis, hemorrhoids, skin tags, no polyps but rept rec for 5 ys due to spasm upper GI series by bariatric team: 01/2021 Poizkfmj-[id number]-[id number] gastroesophageal reflux without hiatal hernia. Prominent anterior cervical esophageal web and prominent cricoesophageal sphincter without any evidence of obstruction.? US 01/2021-- fatty liver EGD 02/2022: empirical dilation, Path: h pylori, active duodenitis and gastritis Treated with quadruple therapy, subsequent H pylori KERRY was negative INTERIM: he feels well today PPi works really well linaclotide helps constipation he is interested in gastric balloon watches diet as best he can EXAM: GENERAL: The patient is obese VITAL SIGNS:see workflow HEENT: Nonicteric sclerae, PERRLA, EOMI. Oropharynx clear. Moist mucous membranes. Conjunctivae appear well perfused. No thyroid mass. CHEST: Chest wall is nontender. HEART: Regular rate and rhythm without murmurs. LUNGS: Clear to auscultation bilaterally. ABDOMEN: Soft, positive bowel sounds, non tender , no organomegaly.no flank tenderness SKIN: No rash, no excessive bruising, petechiae, or purpura. NEUROLOGIC: Cranial nerves II-XII intact without motor/sensory deficit. Psych: appropriate affect A/P: 1/ GERD with reflux, controlled with PPI 2/ H pylori pos--treated 3/ constipation, prob slow transit--impr aury with linaclotide PLAN: 1/cont PPI for the meantime, advised on taking MV daily 2/ cont linaclotide 3/ 1 yr f/u for labs etc 4/ refer bariatrics for balloon assessme nt [facility] Medical History Abdominal bloating Mild recurrent major depression Physical exam Bleeding hemorrhoids Insomnia Lumbar degenerative disc disease Thoracic spine pain Right hip pain B12 deficiency Spina bifida Epistaxis Right ankle sprain Polyarthralgia Fibromyalgia Arthritis HTN (hypertension) Surgical History History of esophagogastroduodenoscopy (EGD) Hx of colonoscopy History of surgery of head History of carpal tunnel surgery History of biopsy Family History Father Cancer Bone cancer Mother Stomach problems Sister No problems noted. Sister Diabetes Brother Diabetes Sleep apnea Bursitis Son No problems noted. Son No problems noted. Son No problems noted. Son Diabetes Daughter Diabetes Daughter No problems noted. Social History Housing: Apartment Are you a primary caregivers non medical to a significant other at home: No Do you presently have visiting nurse or other home services: Yes (spouse is LABOR DELIVERY SPECIALIST) Alcohol intake: never Patient Tobacco Use Status: Never used Tobacco e-Cigarette/Vaping Use: Never Used Second Hand Smoke Exposure: No service: No Current occupational status: disabled Cognitive needs: No Hearing needs: No Vision needs: Yes Physical Exam Vital Signs: Last Vital Signs Pulse 84 02/18/23 14:48 BP 158/68 H 02/18/23 14:48 BMI result Body Mass Index 51.0 Assessment & Plan Assessment & Plan (1) Morbid obesity: Code(s): E66.01 - Morbid (severe) obesity due to excess calories Orders: Referrals Bariatric Surgery Referral E66.01 - Morbid (severe) obesity due to excess calories Quality Reporting (2019) Adult ([facility] 138/2/) Smoking risk assessment performed?: Yes Patient Tobacco Use Status: Never used Tobacco Coding Level of Care Code Est Pt Level 3 (65997) Diagnoses Morbid obesity E66.01
[2023-02-18 14:48] VITALS: BP 158/68; PULSE 84; BMI 51.0
== END 2023-02-18 15:14 | disposition home or self-care (01) ==
PROVIDERS: Visit Provider Internal Medicine Gastroenterology
DX: E66.01 Morbid (severe) obesity due to excess calories (principal)
CPT/HCPCS: 99213

== ENCOUNTER → 2023-02-18 14:21 | Outpatient (BNVA) | payer OTHER, SELFPAY | PROVIDERS: Visit Provider Internal Medicine Gastroenterology | DX: E66.01 Morbid (severe) obesity due to excess calories (principal); Z68.43 Body mass index [BMI] 50.0-59.9, adult | CPT/HCPCS: 99212 ==

== ENCOUNTER 2023-02-21 09:17 | Outpatient (REF) | payer OTHER, SELFPAY | END 2023-02-21 09:18 | disposition home or self-care (01) | LOC: HO.LAB 09:17 | PROVIDERS: PCP Internal Medicine; Visit Provider Internal Medicine | DX: M25.512 Pain in left shoulder (principal) | CPT/HCPCS: 36415; 80053 ==

== ENCOUNTER 2023-02-21 14:43 | Outpatient (AMB) | payer OTHER, SELFPAY ==
--- NOTE | 2023-02-21 14:54 | MHC.PC.OV ---
Vital Signs 02/21/23 14:57 02/21/23 15:26 Height 5 ft 5 in Weight 305 lb BMI 50.7 BP 170/82 H 170/80 H Blood Pressure Location Lt brachial Lt brachial Position Sitting Sitting Pulse 96 Pulse Source Auscultation Intake Visit Reasons: bp Plycor Operator Required: No Accompanied by: Self / Same As Patient Allergies No Known Allergies [No Known Allergies*] Allergy (Verified 02/21/23 15:07) Medication List - Last Reconciled 02/21/23 by Linda William MD bismuth subsalicylate 2 tabs PO QID 14 days cholecalciferol (vitamin D3) 25 mcg PO DAILY 90 days duloxetine (Cymbalta) 60 mg PO DAILY 90 days enalapril maleate 10 mg PO DAILY escitalopram oxalate 10 mg PO QAM gabapentin 400 mg PO TID 30 days [gel cushion seat As directed] hydrochlorothiazide 25 mg PO QAM 90 days hydrocortisone 2.5% (Proctozone-HC) 1 appl MD BID linaclotide (Linzess) 145 mcg PO DAILY menthol-zinc oxide 0.44-20.6 % (Calmoseptine) 1 appl topical QID PRN [id number] mcg (Centrum Silver Men) 1 tab PO DAILY ondansetron HCl 4 mg PO Q8H PRN 4 days pantoprazole 40 mg PO BID 90 days sennosides (Francesca-alcon) Take one tablet in the morning and two tablets at bedtime PO PRN constipation 30 days tetracycline 500 mg PO Q6H 14 days vitamin A palmitate 20,000 units PO DAILY 2 weeks zolpidem 500f10 mg PO BEDTIME PRN Tobacco use date assessed: 09/03/22 HPI HPI Comments History of Present Illness Details This is a 52-year-old male with super super obesity, hypertension, mild major depression and GERD that comes today for follow-up on his conditions. He stopped following with weight management because he declines weight loss surgery. He has BMI of 50.8 should be less than 30 and was advised to diet and exercise as tolerated. Blood pressure elevated and I will increase enalapril from 10 mg to 20 mg. Blood pressure will be recheck in 3 weeks by nurse navigator. Depression stable with escitalopram. GERD stable with PPIs. Had endoscopy recently and was treated with tetracycline for H pylori. I will repeat H pylori in a month. [facility] Medical History (Updated 02/21/23 @ 15:11 by Linda William MD) Abdominal bloating Mild recurrent major depression Physical exam Bleeding hemorrhoids Insomnia Lumbar degenerative disc disease Thoracic spine pain Right hip pain B12 deficiency Spina bifida Epistaxis Right ankle sprain Polyarthralgia Fibromyalgia Arthritis HTN (hypertension) Surgical History History of esophagogastroduodenoscopy (EGD) Hx of colonoscopy History of surgery of head History of carpal tunnel surgery History of biopsy Family History Father Cancer Bone cancer Mother Stomach problems Sister No problems noted. Sister Diabetes Brother Diabetes Sleep apnea Bursitis Son No problems noted. Son No problems noted. Son No problems noted. Son Diabetes Daughter Diabetes Daughter No problems noted. Social History Housing: Apartment Are you a primary director critical care to a significant other at home: No Do you presently have visiting nurse or other home services: Yes (spouse is INTERNET MARKETING COORDINATOR) Alcohol intake: never Patient Tobacco Use Status: Never used Tobacco e-Cigarette/Vaping Use: Never Used Second Hand Smoke Exposure: No service: No Current occupational status: disabled Cognitive needs: No Hearing needs: No Vision needs: Yes Questionnaire Thrive Questionnaire Date Thrive assessed: 09/03/22 KELSI-7 AMB Questionnaire KELSI-7 Date KELSI - 7 assessed: 09/03/22 Source: Developed by Drs. Reggie Abdul, Angela Tee, Rajinder Watson and colleagues, with an educational maria esther from [employer]. Review of Systems Const All systems reviewed & are unremarkable except as noted in HPI and below Eyes Reports no additional complaints, Denies change in vision and Denies other visual disturbances Card Denies chest pain at rest, Denies chest pain with activity, Denies edema, Denies irregular heart rhythm, Denies claudication, Denies dyspnea, Denies dyspnea on exertion, Denies orthopnea, Denies paroxysmal nocturnal dyspnea and Denies slow heart rate Resp Denies cough, Denies dyspnea and Denies dyspnea on exertion GI Denies abdominal pain, Denies change in bowel habits, Denies excessive flatus, Denies nausea and Denies vomiting Denies urinary hesitancy, Denies urinary incontinence and Denies urinary urgency Musc Denies abnormal gait, Denies atrophy, Denies deformity and Denies limited range of motion Skin/Breast Denies bleeding lesions, Denies changing lesions and Denies rash Neuro Denies abnormal gait and Denies lack of coordination Physical exam (Primary Care) Vital Signs: Last Vital Signs BP 170/82 H 02/21/23 14:57 BMI result Body Mass Index 50.7 Tobacco/Smoking Status: Tobacco use Status Tobacco use date assessed 09/03/22 02/21/23 14:56 Patient Tobacco Use Status Never used Tobacco 02/21/23 14:56 e-Cigarette/Vaping Use Never Used 02/21/23 14:56 Thrive Assessment: Date of Thrive Assessment Date Thrive assessed 09/03/22 02/21/23 14:56 Eyes General: appearance normal, both eyes and all related structures Eyelids: Yes eyelids normal Conjunctivae: conjunctivae normal Neck Neck: Yes normal visual inspection and Yes supple Resp Effort & Inspection: normal respiratory effort Auscultation: clear to auscultation bilaterally Cardio Jugular venous distension: no JVD Rate: regular rate Rhythm: regular rhythm Heart sounds: S1 normal heart sound present and S2 normal heart sound present Extrem General: Yes full ROM Office Procedures Flu Questionnaire Does the patient have a severe egg allergy?: No Does the patient have severe life threatening allergies?: No Does the patient have a fever or illness today?: No Has the patient ever had Guillain-[place] Syndrome?: No Has the patient ever had any past reaction to a flu shot?: No Immunizations flu vacc [id number] 6mos up(PF) 60 mcg(15 mcgx4)/0.5 mL IM syringe Performing Provider: Linda William MD [facility] Administered by: KIMI Cintron on 02/21/23 15:14 Dose Route Admin Location Dispensed Lot Number Expiration Date NDC Deputy Director Of Finance 0.5 mL IM Left Deltoid 0.5 mL [id number] 11/17/23 83918-096-08 [employer] VIS Given Date VIS Provided VIS Publication Date 02/21/23 Single Vaccine 20 Eligibility Eligibility Date Funding Source Not [facility] Eligible 02/21/23 Private Assessment and Plan Assessment & Plan (1) Mild recurrent major depression: Code(s): F33.0 - Major depressive disorder, recurrent, mild Plan: Continue escitalopram. (2) Super-super obese: Code(s): E66.01 - Morbid (severe) obesity due to excess calories Plan: Start diet and exercise. BMI goal is less than 30. (3) HTN (hypertension): Code(s): I10 - Essential (primary) hypertension Qualifiers: Hypertension type: essential hypertension Qualified Code(s): I10 - Essential (primary) hypertension Plan: Continue hydrochlorothiazide. Increase enalapril to 20 mg. Recheck blood pressure in 3 weeks by nurse navigator. Blood pressure goal is equal or less than 130/80. (4) GERD (gastroesophageal reflux disease): Code(s): K21.9 - Gastro-esophageal reflux disease without esophagitis Qualifiers: Esophagitis presence: esophagitis presence not specified Qualified Code(s): K21.9 - Gastro-esophageal reflux disease without esophagitis Plan: Continue PPIs. Orders: Orders Influenza [id number] Immunization Today Z23 - Encounter for immunization H pylori Ag Stool 1 Month A04.8 - Other specified bacterial intestinal infections Medications: New enalapril maleate 20 mg PO DAILY 90 days 90 tabs 1RF I10 - Essential (primary) hypertension Discontinued enalapril maleate Discontinued Reason: Patient Completed Course 10 mg PO DAILY 90 tabs 3RF Coding Level of Care Code Est Pt Level 4 (11675) Diagnoses Mild recurrent major depression F33.0 Super-super obese E66.01 Essential hypertension I10 Hypertension type: essential hypertension Gastroesophageal reflux disease, unspecified whether esophagitis present K21.9 Esophagitis presence: esophagitis presence not specified Time Spent (min) 24
[2023-02-21 14:57] VITALS: BP 170/82; PULSE 96; BMI 50.7
[2023-02-21 15:26] VITALS: BP 170/80
== END 2023-02-21 15:24 | disposition home or self-care (01) ==
PROVIDERS: Visit Provider Internal Medicine
DX: K21.9 Gastro-esophageal reflux disease without esophagitis (principal); F33.0 Major depressive disorder, recurrent, mild; E66.01 Morbid (severe) obesity due to excess calories; Z68.43 Body mass index [BMI] 50.0-59.9, adult; Z23 Encounter for immunization; I10 Essential (primary) hypertension
CPT/HCPCS: 90471; 90686; 99214

== ENCOUNTER 2023-03-22 13:07 | Outpatient (AMB) | payer OTHER, SELFPAY ==
[2023-03-22 13:00] VITALS: BP 132/90; PULSE 85; O2SAT 98; BMI 504.2
--- NOTE | 2023-03-22 13:00 | A.OFFPC_ITS ---
Vital Signs 03/22/23 13:00 Height 5 ft 5 in Weight 3030 lb 0.8 oz BMI 504.2 BP 132/90 H Blood Pressure Location Lt brachial Position Sitting Pulse 85 Pulse Source Pulse Oximeter Pulse Oximetry (%) 98 Oxygen Delivery Method Room Air Intake Visit Reasons: Cataract surgery on L eye, 04/05 Intake Note: Patient is here for a Pre-op for Cataract Surgery scheduled with Dr. Justice Hernandez on left eye 04/05 [facility] Director Maternal Child Required: Yes Director Maternal Child Language: Acid Changer Name: Donald [id number] Information Interpreted: non-clinical & clinical Allergies No Known Allergies [No Known Allergies*] Allergy (Verified 03/22/23 13:00) Tobacco use date assessed: 03/22/23 HPI HPI Comments History of Present Illness Details This is a 52-year-old male with super super obesity, hypertension, mild major depression and GERD. Patient of Dr. Jones last seen in February, presents today for pre-op appointment for left cataract surgery 04/05/23 and lens replacement. at [facility] under local anesthesia. Complete blood work reviewed from 02/21/2023, BUN 20 creatinine normal. Otherwise labs unremarkable. Patient denies any chest pain, palpitations, shortness of breath or syncope. [facility] Medical History Abdominal bloating Mild recurrent major depression Physical exam Bleeding hemorrhoids Insomnia Lumbar degenerative disc disease Thoracic spine pain Right hip pain B12 deficiency Spina bifida Epistaxis Right ankle sprain Polyarthralgia Fibromyalgia Arthritis HTN (hypertension) Surgical History History of esophagogastroduodenoscopy (EGD) Hx of colonoscopy History of surgery of head History of carpal tunnel surgery History of biopsy Family History Father Cancer Bone cancer Mother Stomach problems Sister No problems noted. Sister Diabetes Brother Diabetes Sleep apnea Bursitis Son No problems noted. Son No problems noted. Son No problems noted. Son Diabetes Daughter Diabetes Daughter No problems noted. Social History Housing: Apartment Are you a primary physician assistant primary care to a significant other at home: No Do you presently have visiting nurse or other home services: Yes (spouse is STAVE SAW OPERATOR) Alcohol intake: never Patient Tobacco Use Status: Never used Tobacco e-Cigarette/Vaping Use: Never Used Second Hand Smoke Exposure: No service: No Current occupational status: disabled Cognitive needs: No Hearing needs: No Vision needs: Yes Questionnaire Thrive Questionnaire Date Thrive assessed: 09/03/22 AUDIT C Alcohol Use Questionnaire (AUDIT-C) 1. How often do you have a drink containing alcohol?: Never Total Score: 0 Score Reviewed/Action Taken: No KELSI-7 AMB Questionnaire KELSI-7 Date KELSI - 7 assessed: 09/03/22 Source: Developed by Drs. Reggie Abdul, Angela Tee, Rajinder Watson and colleagues, with an educational maria esther from [employer]. Review of Systems Const Denies chills, Denies fatigue, Denies fever(s) and Denies poor appetite Eyes Denies no additional complaints ENT Reports Normal hearing present Card Denies chest pain, Denies syncope, Denies rapid heart rate and Denies dyspnea Resp Denies cough and Denies dyspnea GI Denies change in stool character, Denies constipation, Denies diarrhea, Denies nausea and Denies vomiting Denies dysuria, Denies urinary frequency and Denies urinary urgency Neuro Reports Normal hearing present, Denies confusion and Denies syncope Psych Denies confusion Endo Denies fatigue Physical exam (Primary Care) Vital Signs: Last Vital Signs Pulse 85 03/22/23 13:00 BP 132/90 H 03/22/23 13:00 Pulse Ox 98 03/22/23 13:00 Oxygen Delivery Method Room Air 03/22/23 13:00 BMI result Body Mass Index 504.2 Tobacco/Smoking Status: Tobacco use Status Tobacco use date assessed 03/22/23 03/22/23 13:01 Patient Tobacco Use Status Never used Tobacco 03/22/23 13:01 e-Cigarette/Vaping Use Never Used 03/22/23 13:01 Thrive Assessment: Date of Thrive Assessment Date Thrive assessed 09/03/22 03/22/23 13:01 Const General: No confusion Orientation/consciousness: No confusion HENMT Head: Yes normocephalic and Yes atraumatic Eyes Conjunctivae: conjunctivae normal Chest Chest palpation & inspection: normal inspection of the chest Resp Effort & Inspection: normal respiratory effort Auscultation: clear to auscultation bilaterally, no crackles, no rhonchi and no wheezes Cardio Rate: regular rate Rhythm: regular rhythm Heart sounds: S1 normal heart sound present and S2 normal heart sound present GI Inspection: Yes normal to inspection Neuro General: No confusion Cranial nerves: Yes Normal hearing present Extrem General: No edema Assessment and Plan Assessment & Plan (1) HTN (hypertension): Code(s): I10 - Essential (primary) hypertension Qualifiers: Hypertension type: essential hypertension Qualified Code(s): I10 - Essential (primary) hypertension Plan: Continue on enalapril, hydrochlorothiazide. Follow low-salt diet exercise. (2) Preop examination: Code(s): Z01.818 - Encounter for other preprocedural examination Plan: Labs unremarkable. Patient is of average risk to undergo scheduled cataract surgery, No further workup needed at this time and patient can proceed with scheduled surgery. Patient advised to take blood pressure medications a small sub water prior to surgery and avoid NSAIDs and aspirin therapy 1 week prior to procedure. Plan Keep scheduled physical exam in August with PCP. Coding Level of Care Code Est Pt Level 3 (19154) Diagnoses Essential hypertension I10 Hypertension type: essential hypertension Preop examination Z01.818
== END 2023-03-22 14:37 | disposition home or self-care (01) ==
PROVIDERS: PCP Internal Medicine; Visit Provider Nurse Practitioner Family
DX: I10 Essential (primary) hypertension (principal); Z01.818 Encounter for other preprocedural examination
CPT/HCPCS: 99213

== ENCOUNTER 2023-03-25 01:59 | Emergency (ER) | payer OTHER, SELFPAY ==
--- NOTE | ~2023-03-25 | CT_ITS ---
EXAMINATION: CT HEAD WITHOUT CONTRAST CLINICAL INFORMATION: Headache. COMPARISON: None available. TECHNIQUE: Contiguous axial imaging was performed from the skull base to vertex without intravenous administration of contrast. This CT examination was performed using dose optimization techniques as appropriate, variously including the following: *Automated exposure control *Adjustment of mA and/or kV according to patient size (this includes techniques or standardized protocols for targeted exams where dose is matched to indication/reason for exam; i.e. extremities or head) *Use of iterative reconstruction technique DLP: 789 mGy-cm FINDINGS: The lateral, third and fourth ventricles are normally outlined. The cortical sulci and basal cisterns are normally outlined as well. There is no acute territorial defect, hemorrhage or midline shift. The extra-axial spaces are unremarkable. Calvarium: Intact. Maxillofacial sinuses and mastoids: Clear as visualized. CT/CT head/brain wo IV con IMPRESSION: No acute intracranial pathology.
[2023-03-25 02:10] VITALS: BP 168/94; PULSE 80; O2SAT 94
--- NOTE | 2023-03-25 02:23 | ED_ITS ---
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 headache started after eating at [place] food yesterday, headache involving the whole entire face as pressure in the face and around his sinuses, no photophobia, no neck stiffness, no nausea, no vomiting, no fever, no chills. patient has been complaining of sore throat. No sick contacts, no recent travel. Related Data Home Medications Medication Instructions Recorded Confirmed escitalopram oxalate 10 mg tablet 10 mg PO QAM 11/15/20 02/21/23 zolpidem 10 mg tablet 500f10 mg PO BEDTIME PRN 11/15/20 02/21/23 Previous Rx's Medication Instructions Recorded vitamin A palmitate 3,000 mcg 20,000 unit PO DAILY 2 weeks #28 01/25/21 (10,000 unit) tablet tabs menthol 0.44 %-zinc oxide 20.6 % 1 appl topical QID PRN wound 03/23/21 topical ointment (Calmoseptine) healing #113 grams gel cushion seat #1 ea 05/16/21 sennosides 8.6 mg tablet (Francesca-alcon) See Rx Instructions PO .COMPLEX 11/06/21 PRN constipation 30 days #90 tabs hydrocortisone 2.5 % topical cream 1 appl MO BID #30 grams 03/14/22 with perineal applicator (Proctozone-HC) bismuth subsalicylate 262 mg 2 tab PO QID 14 days #112 tabs 04/02/22 chewable tablet tetracycline 500 mg capsule 500 mg PO Q6H 14 days #56 caps 04/02/22 gabapentin 400 mg capsule 400 mg PO TID 30 days #90 caps 09/05/22 cholecalciferol (vitamin D3) 25 25 mcg PO DAILY 90 days #90 caps 09/23/22 mcg (1,000 unit) capsule pantoprazole 40 mg tablet,delayed 40 mg PO BID 90 days #180 tabs 10/24/22 release linaclotide 145 mcg capsule 145 mcg PO DAILY #30 caps 12/31/22 (Linzess) hydrochlorothiazide 25 mg tablet 25 mg PO QAM 90 days #90 tabs 01/04/23 ondansetron HCl 4 mg tablet 4 mg PO Q8H PRN nausea and 02/06/23 vomiting 4 days #10 tabs [id number] 300 mcg-K 60 1 tab PO DAILY #90 tabs 02/18/23 mcg-lycop 600 mcg-lutein 300 mcg tablet (Centrum Silver Men) enalapril maleate 20 mg tablet 20 mg PO DAILY 90 days #90 tabs 02/21/23 duloxetine 60 mg capsule,delayed 60 mg PO DAILY 90 days #90 caps 03/07/23 release (Cymbalta) Allergies Allergy/AdvReac Type Severity Reaction Status Date / Time No Known Allergies Allergy Verified 03/25/23 02:33 [No Known Allergies*] Review of Systems 2 Review of Systems: All other systems are reviewed and are negative Constitutional: Reports as per HPI and Reports no additional constitutional complaints Eyes: Reports as per HPI and Reports no additional eye complaints Reports system reviewed and no additional complaints, except as documented Cardiovascular: Reports as per HPI and Reports no additional cardiovascular complaints Respiratory: Reports as per HPI and Reports no additional respiratory complaints Gastrointestinal: Reports as per HPI and Reports no additional gastrointestinal complaints Genitourinary: Reports no additional female genitourinary complaints Musculoskeletal: Reports no additional musculoskeletal complaints Skin/Breast: Reports system reviewed and no additional complaints, except as docu Psychiatric: Reports no additional psychiatric complaints Endocrine: Reports no additional endocrine complaints Hematologic/Lymphatic: Reports no additional hematologic/lymphatic complaints Allergic/Immunologic: Reports no additional allergic/immunologic complaints Reports system reviewed and no additional complaints, except as documented and Reports Abnormal speech present [facility] Past Medical History Medical History Abdominal bloating Mild recurrent major depression Physical exam Bleeding hemorrhoids Insomnia Lumbar degenerative disc disease Thoracic spine pain Right hip pain B12 deficiency Spina bifida Epistaxis Right ankle sprain Polyarthralgia Fibromyalgia Arthritis HTN (hypertension) Surgical History History of esophagogastroduodenoscopy (EGD) Hx of colonoscopy History of surgery of head History of carpal tunnel surgery History of biopsy Family History Family History Father Cancer Bone cancer Mother Stomach problems Sister No problems noted. Sister Diabetes Brother Diabetes Sleep apnea Bursitis Son No problems noted. Son No problems noted. Son No problems noted. Son Diabetes Daughter Diabetes Daughter No problems noted. Social History Social History Housing: Apartment Are you a primary career and transition teacher to a significant other at home: No Do you presently have visiting nurse or other home services: Yes (spouse is CASH ROOM CLERK) Alcohol intake: never Patient Tobacco Use Status: Never used Tobacco Smoked in Last 30 Days: No e-Cigarette/Vaping Use: Never Used Second Hand Smoke Exposure: No Use of substances other than those prescribed or required for medical reasons: No Advance Directives: No Advance Directives Information Provided: No service: No Current occupational status: disabled Cognitive needs: No Hearing needs: No Vision needs: Yes Physical Exam ED Vital Signs: Vital Signs - 24 hr 03/25/23 02:46 Temperature 98.4 F Pulse Rate 79 Respiratory Rate 17 Blood Pressure 112/50 L Pulse Oximetry 96 Oxygen Delivery Method Room Air BMI result Body Mass Index 74.7 Vital signs have been reviewed and appear to be correct. Blood pressure elevated. Heart rate normal. Respiratory rate normal. Temperature normal. Oxygen saturation normal. Appearance: Alert. Oriented X3. No acute distress. Head: Normal external exam. Normocephalic. Atraumatic. No Acosta signs noted. No raccoon eyes noted Eyes: PERRLA. EOMI. Conjunctiva and sclera normal. Eyelids normal. ENT: TM's Normal. Pharynx normal. Uvula midline. Moist mucous membranes. No trismus noted. No drooling noted. No muffled voice noted. Neck: Normal inspection. Neck supple. FROM. No adenopathy. Thyroid Normal. No meningeal signs. No neck mass noted. CVS: Normal heart rate and rhythm. Heart sound normal. No murmurs noted. Pulses normal throughout. Respiratory: No respiratory distress. Painless inspiration. Breath sounds normal. No wheezes/rales/rhonchi noted. Chest nontender. No accessory muscle usage noted or decreased air movement noted. Abdomen: Soft and nontender. Bowel sounds normal in all 4 quadrants. No distention noted. No organomegaly noted. No visible injury noted. Back: No CVA tenderness. Full range of motion noted. Skin: Skin warm and dry. Normal skin color. Normal skin turgor. No rashes/lesions/lacerations noted. Extremities: No lower extremity edema. Extremities exhibit normal range of motion. Extremities nontender. Neuro: Oriented X 3. Cranial nerve exam: II-XII are grossly intact No motor deficit. No sensory deficit. Reflexes normal. Course Reevaluation(s) Reevaluation #1: Patient feels better, no headache, no photophobia, no neck stiffness, normal neuro exam, head CT is unremarkable. Time: 06:30 Medications Administered Discontinued Medications Generic Name Dose Route Start Last Admin Trade Name Freq PRN Reason Stop Dose Admin Acetaminophen 650 mg 03/25/23 02:24 03/25/23 02:43 Acetaminophen 325 Mg Tablet PO 03/25/23 02:25 650 mg ONCE ONE Administration Diphenhydramine HCl 25 mg 03/25/23 02:21 03/25/23 02:44 Diphenhydramine Hcl 50 Mg/Ml Vial IVPUSH 03/25/23 02:22 25 mg ONCE ONE Administration Sodium Chloride 1,000 mls @ 999 mls/hr 03/25/23 02:21 03/25/23 02:44 Ns IV 03/25/23 03:21 999 mls/hr .Q1H1M ONE Administration Ondansetron HCl 4 mg 03/25/23 02:21 03/25/23 02:43 Ondansetron Hcl 4 Mg/2 Ml Vial IVPUSH 03/25/23 02:22 4 mg ONCE ONE Administration Medical Decision Making Differential Diagnosis Differential Diagnoses: The differential diagnosis associated with the presentation includes ( Sinusitis, pharyngitis, tension headache, electrolyte abnormality, viral infection, severe anemia , intracranial bleed.) Admission/Observation Consideration of admission/observation: Escalation of care including admission/observation considered Lab Data MDM Lab Attestation statement: I reviewed the patient's lab results. 03/25/23 02:30 03/25/23 02:30 Labs: Lab Results 03/25/23 03/25/23 Range/Units 02:30 02:47 WBC 8.1 (4.8-10.8) X10*3/uL RBC 5.08 (4.60-5.80) X10*6/uL Hgb 14.4 (14.0-18.0) g/dl Hct 43.9 (42.0-52.0) % MCV 86.4 (80.0-98.0) fL MCH 28.3 (27.0-33.0) pg MCHC 32.8 (31.0-36.0) g/dl RDW 12.6 (11.0-16.0) % Plt Count 338 (160-400) X10*3/uL MPV 8.7 L (9.4-12.4) fL Immature Gran % (Auto) 0.2 (0.0-0.4) % Neut % (Auto) 57.7 (45-73) % Lymph % (Auto) 31.0 (20-40) % Barron % (Auto) 7.8 (2-11) % Eos % (Auto) 2.7 (0-4) % Baso % (Auto) 0.6 (0-2) % Lymph # (Auto) 2.5 (1.2-4.9) X10*3/uL Barron # (Auto) 0.6 (0.1-1.2) X10*3/uL Eos # (Auto) 0.2 (0.0-0.4) X10*3/uL Baso # (Auto) 0.1 (0.0-0.2) X10*3/uL Abs Immat Gran (auto) 0.02 (0.00-0.03) X10*3/uL Absolute Neuts (auto) 4.7 (2.0-8.3) x10*3/uL Absolute Nucleated RBC 0.000 (0.0-0.012) X10*3/uL Nucleated RBC % (auto) 0.0 (0.0-0.2) /100WBC Sodium 140 (135-145) mmol/L Potassium 3.5 (3.3-5.1) mmol/L Chloride 102 (96-108) mmol/L Carbon Dioxide 29 (22-29) mmol/L Anion Gap 13 (12-20) BUN 14 (9-16) mg/dL Creatinine 1.12 (0.5-1.4) mg/dL Estim Creat Clear Calc 156.3 Estimated GFR > 60 Random Glucose 106 (60-115) mg/dL Calcium 9.9 D (8.4-10.2) mg/dL Lipase 21 (8-78) U/L Influenza Type A (PCR) NEGATIVE (Negative) Influenza Type B (PCR) NEGATIVE (Negative) RSV RNA Qual (PCR) NEGATIVE (Negative) SARS-CoV-2 RNA (RT-PCR) NEGATIVE (Negative) S. pyogenes GrpA JEFFERY Negative (Negative) Independent Interpretation I performed an independent interpretation of an: CT Scan ( Head: No acute intracranial pathology.) Radiology Impression Discussion of test interpretation with radiology: I have reviewed the radiologist's reading. Discharge Plan Discharge Clinical Impression: Tension headache Patient Disposition: Home, Self-Care Instructions: Tension Headache (ED) Prescriptions: No Action vitamin A palmitate 10,000 unit tablet 20,000 unit PO DAILY 14 Days Qty: 28 0RF (DME) gel cushion seat See Rx Instructions .Route .MEDSUPPLY Qty: 1 0RF Rx Instructions: As directed sennosides [Francesca-alcon] 8.6 mg tablet See Rx Instructions PO .COMPLEX PRN (Reason: constipation) 30 Days Qty: 90 4RF Rx Instructions: Take one tablet in the morning and two tablets at bedtime PO PRN constipation hydrocortisone [Proctozone-HC] 2.5 % cream with perineal applicator 1 appl MO BID Qty: 30 0RF gabapentin 400 mg capsule 400 mg PO TID 30 Days Qty: 90 3RF cholecalciferol (vitamin D3) 25 mcg (1,000 unit) capsule 25 mcg PO DAILY 90 Days Qty: 90 3RF pantoprazole 40 mg tablet,delayed release (DR/EC) 40 mg PO BID 90 Days Qty: 180 3RF Linzess 145 mcg capsule 145 mcg PO DAILY Qty: 30 2RF hydrochlorothiazide 25 mg tablet 25 mg PO QAM 90 Days Qty: 90 3RF duloxetine [Cymbalta] 60 mg capsule,delayed release(DR/EC) 60 mg PO DAILY 90 Days Qty: 90 0RF ondansetron HCl 4 mg tablet 4 mg PO Q8H PRN (Reason: nausea and vomiting) 4 Days Qty: 10 0RF enalapril maleate 20 mg tablet 20 mg PO DAILY 90 Days Qty: 90 1RF zolpidem 10 mg tablet 500f10 mg PO BEDTIME PRN escitalopram oxalate 10 mg tablet 10 mg PO QAM menthol-zinc oxide [Calmoseptine] 0.44-20.6 % ointment 1 appl topical QID PRN (Reason: wound healing) Qty: 113 0RF tetracycline 500 mg capsule 500 mg PO Q6H 14 Days Qty: 56 0RF bismuth subsalicylate 262 mg tablet,chewable 2 tab PO QID 14 Days Qty: 112 0RF Centrum Silver Men [id number] mcg tablet 1 tab PO DAILY Qty: 90 2RF Referrals: Linda Bo MD [Primary Care Provider] -
[2023-03-25 02:31] VITALS: BMI 74.7
[2023-03-25 02:34] LABS: Basophils Absolute Auto 0.1 X10*3/uL (0.0-0.2); Basophils Percent Auto 0.6 % (0-2); Eosinophils Absolute Auto 0.2 X10*3/uL (0.0-0.4); Eosinophils Percent Auto 2.7 % (0-4); Hematocrit 43.9 % (42.0-52.0); Hemoglobin 14.4 g/dl (14.0-18.0); Imm Gran Abs Auto 0.02 X10*3/uL (0.00-0.03); Imm Gran Pct Auto 0.2 % (0.0-0.4); Lymphocytes Absolute Auto 2.5 X10*3/uL (1.2-4.9); MANUAL DIFF FLAG NO; Mean Corpuscular HGB Conc 32.8 g/dl (31.0-36.0); Mean Corpuscular Hemoglobin 28.3 pg (27.0-33.0); Mean Corpuscular Volume 86.4 fL (80.0-98.0); Mean Platelet Volume 8.7 fL (9.4-12.4); Monocytes Absolute Auto 0.6 X10*3/uL (0.1-1.2); Monocytes Percent Auto 7.8 % (2-11); Neutrophils Absolute Auto 4.7 x10*3/uL (2.0-8.3); Neutrophils Percent Auto 57.7 % (45-73); Platelet Count 338 X10*3/uL (160-400); Red Blood Count 5.08 X10*6/uL (4.60-5.80); Red Cell Distribution Width 12.6 % (11.0-16.0); White Blood Count 8.1 X10*3/uL (4.8-10.8)
[2023-03-25] MEDS: ondansetron HCL 4 MG/2 ML VIAL IVPUSH (02:43)
[2023-03-25] MEDS: Acetaminophen 325 MG TABLET 650 MG PO (02:43)
[2023-03-25] MEDS: 0.9 % Sodium Chloride 1,000 ML 999 ML IV (02:44)
[2023-03-25] MEDS: diphenhydrAMINE HCL 50 MG/ML VIAL 25 MG IVPUSH (02:44)
--- NOTE | 2023-03-25 02:45 | PC.NURSE ---
pt BIBA from home reporting headache for 3 days. pt reports headache radiates into neck when turning head left and right. pt denies nausea, vomiting and chest pains. pt reports photosensitivity, and feels better once the lights are turned down. provider at bedside discussing pt care.
[2023-03-25 02:46] VITALS: BP 112/50; PULSE 79; RESP 17; TEMP 36.9; O2SAT 96
[2023-03-25 02:46] LABS: Anion Gap 13 (12-20); Blood Urea Nitrogen 14 mg/dL (9-16); Calcium 9.9 mg/dL (8.4-10.2); Carbon Dioxide 29 mmol/L (22-29); Chloride 102 mmol/L (96-108); Creatinine Clr Calc Pharmacy 156.3; Estimated Glomerular Filt Rate > 60; Glucose Random 106 mg/dL (60-115); Lipase 21 U/L (8-78); Potassium 3.5 mmol/L (3.3-5.1); Sodium 140 mmol/L (135-145)
[2023-03-25 03:03] LABS: IDNOW Serial# 6674DD1D; Strep A Nucleic Acid Negative (Negative)
[2023-03-25 03:31] LABS: Influenza A PCR NEGATIVE (Negative); Influenza B PCR NEGATIVE (Negative); Resp Syncy Virus RNA Qual PCR NEGATIVE (Negative); SARS COV2 PCR INHOUSE NEGATIVE (Negative)
[2023-03-25 06:36] VITALS: BP 117/73; PULSE 95; RESP 18; O2SAT 98
== END 2023-03-25 06:37 | disposition home or self-care (01) ==
PROVIDERS: Emergency Provider Emergency Medicine; PCP Internal Medicine
DX: R51.9 Headache, unspecified (principal); Z20.822 Contact with and (suspected) exposure to COVID-19; Z79.899 Other long term (current) drug therapy; Z20.828 Contact with and (suspected) exposure to other viral communicable diseases
CPT/HCPCS: 0241U; 36415; 70450; 80048; 83690; 85025; 87651; 96361; 96374; 96375; 99284; J1200; J2405

== ENCOUNTER 2023-08-19 12:27 | Outpatient (AMB) | payer OTHER, SELFPAY ==
--- NOTE | 2023-08-19 12:34 | MHC.PC.OV ---
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 Accompanied by: Self / Same As Patient Allergies No Known Allergies [No Known Allergies*] Allergy (Verified 08/19/23 12:55) Medication List - Last Reconciled 08/19/23 by Linda William MD bismuth subsalicylate 2 tabs PO QID 14 days cholecalciferol (vitamin D3) 25 mcg PO DAILY 90 days duloxetine (Cymbalta) 60 mg PO DAILY 90 days enalapril maleate 20 mg PO DAILY 90 days escitalopram oxalate 10 mg PO QAM gabapentin 400 mg PO TID 30 days [gel cushion seat As directed] hydrochlorothiazide 25 mg PO QAM 90 days linaclotide (Linzess) 145 mcg PO DAILY [id number] mcg (Centrum Silver Men) 1 tab PO DAILY ondansetron HCl 4 mg PO Q8H PRN 4 days pantoprazole 40 mg PO BID 90 days sennosides (Francesca-alcon) Take one tablet in the morning and two tablets at bedtime PO PRN constipation 30 days vitamin A palmitate 20,000 units PO DAILY 2 weeks zolpidem 500f10 mg PO BEDTIME PRN Tobacco use date assessed: 08/19/23 Dental Screening Dental Screen Date: 08/19/23 Did you have a dental visit in the last 12 months?: Yes Did you have a dental problem in the last 6 months where you did not have access to dental care?: No Was dental information given to patient?: Patient has dentist HPI HPI Comments History of Present Illness Details This is a 53-year-old male with hypertension, mild recurrent major depression, morbid obesity and chronic idiopathic constipation that comes today complaining of left shoulder pain, right ankle pain and thoracic spine pain. This started few weeks ago. No relieving or aggravating factor associated with it. Has full active range of motion. X-ray will be ordered. Blood pressure stable. Depression control with medications and this is follow by Psychiatry. He is morbidly obese with a BMI of 51.8 and declines weight loss surgery. Constipation improved with Linzess. [facility] Medical History (Updated 08/19/23 @ 13:05 by Linda William MD) Abdominal bloating Mild recurrent major depression Physical exam Bleeding hemorrhoids Insomnia Lumbar degenerative disc disease Thoracic spine pain Right hip pain B12 deficiency Spina bifida Epistaxis Right ankle sprain Polyarthralgia Fibromyalgia Arthritis HTN (hypertension) Surgical History History of esophagogastroduodenoscopy (EGD) Hx of colonoscopy History of surgery of head History of carpal tunnel surgery History of biopsy Family History Father Cancer Bone cancer Mother Stomach problems Sister No problems noted. Sister Diabetes Brother Diabetes Sleep apnea Bursitis Son No problems noted. Son No problems noted. Son No problems noted. Son Diabetes Daughter Diabetes Daughter No problems noted. Social History Housing: Apartment Are you a primary livestock caretaker to a significant other at home: No Do you presently have visiting nurse or other home services: Yes (spouse is [employer]EL[employer]) Alcohol intake: never Patient Tobacco Use Status: Never used Tobacco e-Cigarette/Vaping Use: Never Used Second Hand Smoke Exposure: No service: No Current occupational status: disabled Cognitive needs: No Hearing needs: No Vision needs: Yes Questionnaire PHQ-9 Over the last 2 weeks, how often have you been bothered by any of the following problems? 1. Little interest or pleasure in doing things: nearly every day 2. Feeling down, depressed, or hopeless: nearly every day 3. Trouble falling or staying asleep, or sleeping too much: several days 4. Feeling tired or having little energy: nearly every day 5. Poor appetite or overeating: more than half the days 6. Feeling bad about yourself - or that you are a failure or have let yourself or your family down: nearly every day 7. Trouble concentrating on things, such as reading the newspaper or watching television: not at all 8. Moving or speaking so slowly that other people could have noticed. Or the opposite - being so fidgety or restless that you have been moving around a lot more than usual: nearly every day 9. Thoughts that you would be better off or of hurting yourself in some way: not at all Total score: 18 Depression Screening Interpretation: Positive (no suicidal thoughts) Depression Screening Follow-up: Existing condition, In treatment and Community Mental Health Worker F/U Depression Screening Done: Yes 59886 - PHQ-9 Billing: Yes Source: Developed by Drs. Reggie Abdul, Angela Tee, Rajinder Watson and colleagues, with an educational maria esther from [employer]. Thrive Questionnaire Date Thrive assessed: 08/19/23 I am a: Patient What is your living situation today?: I have a steady place to live Within the past 12 months, did the food you bought not last and you didn't have the money to get more?: Never true Within the past 12 months, did you worry whether your food would run out before you got money to buy more?: Never true Do you have trouble paying for medicines?: No Do you have trouble getting transportation to medical appointments?: No Do you have trouble paying your heating and electricity bill?: No Do you have trouble taking care of your child, family member or friend?: No Do you have trouble with day-to-day activities such as bathing, preparing meals, shopping, managing finances, etc.?: No Are you currently unemployed and looking for a job?: No Are you interested in more education?: No Please select the resources that you would like help with: None Currently or been in a relationship where the following occur: no concerns reported THRIVE Score: 0 AUDIT C Alcohol Use Questionnaire (AUDIT-C) 1. How often do you have a drink containing alcohol?: Never Total Score: 0 KELSI-7 AMB Questionnaire KELSI-7 Date KELSI - 7 assessed: 08/19/23 Feeling nervous, anxious, or on edge: 3 = Nearly every day Not being able to stop or control worryin = Nearly every day Worrying too much about different things: 3 = Nearly every day Trouble relaxin = More than half the days Being so restless that it is hard to sit still: 2 = More than half the days Becoming easily annoyed or irritable: 0 = Not at all Feeling afraid as if something awful might happen: 3 = Nearly every day Total KELSI-7 score (0-4 normal; 5-9 mild; 10-14 moderate; 15-21 severe): 16 Source: Developed by Drs. Reggie Abdul, Angela Tee, Rajinder Watson and colleagues, with an educational maria esther from [employer]. KELSI-7 Assessment Billing KELSI-7 Assessment Tool: KELSI-7 Assessment 75424 Review of Systems Const All systems reviewed & are unremarkable except as noted in HPI and below Eyes Reports no additional complaints, Denies change in vision and Denies other visual disturbances Card Denies chest pain at rest, Denies chest pain with activity, Denies edema, Denies irregular heart rhythm, Denies claudication, Denies dyspnea, Denies dyspnea on exertion, Denies orthopnea, Denies paroxysmal nocturnal dyspnea and Denies slow heart rate Resp Denies cough, Denies dyspnea and Denies dyspnea on exertion GI Denies abdominal pain, Denies change in bowel habits, Denies excessive flatus, Denies nausea and Denies vomiting Denies urinary hesitancy, Denies urinary incontinence and Denies urinary urgency Physical exam (Primary Care) Vital Signs: Last Vital Signs BP 132/80 08/19/23 12:35 BMI result Body Mass Index 51.7 Tobacco/Smoking Status: Tobacco use Status Tobacco use date assessed 08/19/23 08/19/23 12:44 Patient Tobacco Use Status Never used Tobacco 08/19/23 12:44 e-Cigarette/Vaping Use Never Used 08/19/23 12:44 PHQ-9: PHQ-9 Score PHQ-9: Total score 18 08/19/23 12:57 Depression Screening Interpretation: Positive (no suicidal thoughts) Depression Screening Follow-up: Existing condition, In treatment and Community Mental Health Worker F/U Thrive Assessment: Date of Thrive Assessment Date Thrive assessed 08/19/23 08/19/23 12:44 Currently or been in a relationship where the following occur: no concerns reported Resp Effort & Inspection: normal respiratory effort Auscultation: clear to auscultation bilaterally Cardio Jugular venous distension: no JVD Rate: regular rate Rhythm: regular rhythm Heart sounds: S1 normal heart sound present and S2 normal heart sound present Extrem General: Yes full ROM Assessment and Plan Assessment & Plan (1) Mild recurrent major depression: Code(s): F33.0 - Major depressive disorder, recurrent, mild Plan: Continue duloxetine. Follow-up with psychiatry. (2) Morbid obesity: Code(s): E66.01 - Morbid (severe) obesity due to excess calories Plan: Patient declines weight management referral. Start diet and exercise. BMI goal is less than 30. Continue (3) HTN (hypertension): Code(s): I10 - Essential (primary) hypertension Qualifiers: Hypertension type: essential hypertension Qualified Code(s): I10 - Essential (primary) hypertension Plan: Continue enalapril. Blood pressure goal is equal or less than 130/80. (4) Chronic idiopathic constipation: Code(s): K59.04 - Chronic idiopathic constipation Plan: Continue Linzess. Orders: Orders XR ankle RT 2V Today M25.571 - Pain in right ankle and joints of right foot XR KUB Today N20.0 - Calculus of kidney XR thoracic spine 2V Today M54.6 - Pain in thoracic spine Lipid Panel Today E66.01 - Morbid (severe) obesity due to excess calories, E78.5 - Hyperlipidemia, unspecified Vitamin D 25-OH Total Today E55.9 - Vitamin D deficiency, unspecified Vitamin B12 and Folate Today E53.8 - Deficiency of other specified B group vitamins XR shoulder LT min 2V Today M25.512 - Pain in left shoulder US abdomen limited Today R10.30 - Lower abdominal pain, unspecified Comprehensive [place]. Panel Fast Today E66.01 - Morbid (severe) obesity due to excess calories Complete Blood Count Auto Diff Today D64.9 - Anemia, unspecified, E66.01 - Morbid (severe) obesity due to excess calories Coding Level of Care Code Est Pt Level 4 (03784) Diagnoses Mild recurrent major depression F33.0 Morbid obesity E66.01 Essential hypertension I10 Hypertension type: essential hypertension Chronic idiopathic constipation K59.04 Additional Codes KELSI-7 Assessment Billing - KELSI-7 Assessment Tool: KELSI-7 Assessment 50615 ([id number]) Time Spent (min) 23
[2023-08-19 12:35] VITALS: BP 132/80; BMI 51.7
== END 2023-08-19 13:04 | disposition home or self-care (01) ==
PROVIDERS: PCP Internal Medicine; Visit Provider Internal Medicine
DX: K59.04 Chronic idiopathic constipation (principal); F33.0 Major depressive disorder, recurrent, mild; E66.01 Morbid (severe) obesity due to excess calories; Z68.43 Body mass index [BMI] 50.0-59.9, adult; I10 Essential (primary) hypertension
CPT/HCPCS: 99214

== ENCOUNTER 2023-08-30 09:39 | Outpatient (REF) | payer OTHER, SELFPAY ==
--- NOTE | ~2023-08-30 | XR_ITS ---
EXAMINATION: XR THORACIC SPINE XR LEFT SHOULDER XR KUB XR RIGHT ANKLE CLINICAL INFORMATION: Patient states pain in left shoulder, right ankle, abdomen and mid back. TECHNIQUE: 3 views right ankle. 3 views abdomen. 4 views left shoulder. 3 views thoracic spine. COMPARISON: Thoracic spine 08/11/2020, ultrasound abdomen 02/05/2023, left shoulder 09/10/2022, chest 01/10/2022, CT abdomen and pelvis 09/12/2021, right ankle 04/18/2020, KUB 08/12/2019. FINDINGS: THORACIC SPINE: Mild dextroscoliosis of the thoracic spine. Limited visualization due to body habitus. Redemonstration of multilevel degenerative changes with multilevel loss of disc space height. Degenerative changes on very limited images of the cervical spine could be evaluated with dedicated cervical spine radiographs. ABDOMEN: Slight rightward curvature of the lumbar spine with multilevel spondylosis. Nonobstructive bowel gas pattern. Moderate amount of stool in the colon. Possible parenchymal disease at the left lung base versus prominent vascular markings could be evaluated with dedicated views of the chest. Small pelvic calcifications likely phleboliths. LEFT SHOULDER: Advanced degenerative changes with glenohumeral alignment preserved. Redemonstration of calcifications adjacent to the greater tuberosity, suggestive of calcific tendinitis or bursitis, decreased since 09/10/2022. Mild hypertrophic change along the inferior aspect of the glenoid. Redemonstration of degenerative changes in the acromioclavicular joint. RIGHT ANKLE: Vascular calcifications. Tiny calcification in the superficial soft tissues of the medial ankle was not identified on the prior exam of 04/18/2020. The ankle mortise is symmetric. Ankle joint effusion with soft tissue swelling. Tiny calcific density projects in the posterior aspect of the talocalcaneal space, not previously identified. Minimal posterior calcaneal spurring redemonstrated. XR/XR shoulder LT min 2V IMPRESSION: 1. Redemonstration of multilevel degenerative changes in the thoracic spine. 2. Possible parenchymal disease at the left lung base versus prominent vascular markings could be evaluated with dedicated views of the chest. 3. Redemonstration of calcifications adjacent to the greater tuberosity, suggestive of calcific tendinitis or bursitis, decreased since 09/10/2022. 4. Ankle joint effusion with soft tissue swelling. Tiny calcification in the superficial soft tissues of the medial ankle was not identified on the prior exam of 04/18/2020.Tiny calcific density projects in the posterior aspect of the talocalcaneal space, not previously identified. 5. Additional imaging with CT scan or MRI should be considered for better visualization as these modalities are much more sensitive for detection of fracture or other underlying pathology.
[2023-08-30 09:53] LABS: MANUAL DIFF FLAG NO
[2023-08-30 10:13] LABS: Basophils Absolute Auto 0.1 X10*3/uL (0.0-0.2); Basophils Percent Auto 0.7 % (0-2); Eosinophils Absolute Auto 0.3 X10*3/uL (0.0-0.4); Eosinophils Percent Auto 3.1 % (0-4); Hematocrit 44.1 % (42.0-52.0); Hemoglobin 14.6 g/dl (14.0-18.0); Imm Gran Abs Auto 0.06 X10*3/uL (0.00-0.03); Imm Gran Pct Auto 0.7 % (0.0-0.4); Lymphocytes Absolute Auto 2.8 X10*3/uL (1.2-4.9); Lymphocytes Percent Auto 34.5 % (20-40); Mean Corpuscular HGB Conc 33.1 g/dl (31.0-36.0); Mean Corpuscular Hemoglobin 28.5 pg (27.0-33.0); Mean Corpuscular Volume 86.1 fL (80.0-98.0); Monocytes Absolute Auto 0.8 X10*3/uL (0.1-1.2); Monocytes Percent Auto 9.5 % (2-11); Neutrophils Absolute Auto 4.2 x10*3/uL (2.0-8.3); Neutrophils Percent Auto 51.5 % (45-73); Platelet Count 318 X10*3/uL (160-400); Red Blood Count 5.12 X10*6/uL (4.60-5.80); Red Cell Distribution Width 12.8 % (11.0-16.0); White Blood Count 8.1 X10*3/uL (4.8-10.8)
[2023-08-30 11:53] LABS: Vitamin D 25-OH Total 28.8 ng/mL (>30)
[2023-08-30 12:08] LABS: Folate 7.5 ng/mL (> or = 4.0); Vitamin B12 317 pg/mL (200-900)
[2023-08-30 12:19] LABS: Anion Gap 14 (12-20)
[2023-08-30 12:24] LABS: Alanine Aminotransferase 29 U/L (0-40); Albumin Level 4.1 g/dL (3.5-5.0); Alkaline Phosphatase 73 U/L (39-117); Aspartate Amino Transferase 23 U/L (5-37); Bilirubin Total 0.5 mg/dL (0.0-1.0); Blood Urea Nitrogen 15 mg/dL (9-16); Calcium 9.1 mg/dL (8.4-10.2); Carbon Dioxide 26 mmol/L (22-29); Chloride 104 mmol/L (96-108); Cholesterol 177 mg/dL (<200); Estimated Glomerular Filt Rate > 60; Glucose Fasting 106 mg/dL (60-99); HDL Cholesterol 52 mg/dL (>40); LDL Cholesterol Calculated 105 mg/dL (<100); Sodium 140 mmol/L (135-145); Total Protein 7.7 g/dL (6.5-8.0); Triglycerides 104 mg/dL (<150)
== END 2023-08-30 09:40 | disposition home or self-care (01) ==
LOC: HO.LAB 09:39
PROVIDERS: PCP Internal Medicine; Visit Provider Internal Medicine
DX: E66.01 Morbid (severe) obesity due to excess calories (principal); E78.5 Hyperlipidemia, unspecified; E55.9 Vitamin D deficiency, unspecified; E53.8 Deficiency of other specified B group vitamins; D64.9 Anemia, unspecified; M54.6 Pain in thoracic spine; M25.512 Pain in left shoulder; M25.571 Pain in right ankle and joints of right foot; N20.0 Calculus of kidney
CPT/HCPCS: 36415; 72070; 73030; 73600; 74018; 80053; 80061; 82306; 82607; 82746; 85025

== ENCOUNTER 2023-09-04 09:34 | Outpatient (AMB) | payer OTHER, SELFPAY ==
[2023-09-04 09:36] VITALS: BP 160/80; BMI 52.1
--- NOTE | 2023-09-04 09:36 | MHC.PC.OV ---
Vital Signs 09/04/23 09:36 Height 5 ft 5 in Weight 313 lb BMI 52.1 BP 160/80 H Blood Pressure Location Lt brachial Position Sitting Intake Visit Reasons: Annual Exam Intake Note: Patient here for an annual physical exam, c/o right hand pain, back and hip pain Snow Ranger Required: No Accompanied by: Self / Same As Patient Allergies No Known Allergies [No Known Allergies*] Allergy (Verified 09/04/23 09:57) Medication List - Last Reconciled 09/04/23 by Linda William MD bismuth subsalicylate 2 tabs PO QID 14 days cholecalciferol (vitamin D3) 25 mcg PO DAILY 90 days duloxetine (Cymbalta) 60 mg PO DAILY 90 days enalapril maleate 20 mg PO DAILY 90 days escitalopram oxalate 10 mg PO QAM gabapentin 400 mg PO TID 30 days [gel cushion seat As directed] hydrochlorothiazide 25 mg PO QAM 90 days linaclotide (Linzess) 145 mcg PO DAILY [id number]-aopal-B1-tlkmazu-fdotrd [id number] mcg (Centrum Silver Men) 1 tab PO DAILY ondansetron HCl 4 mg PO Q8H PRN 4 days pantoprazole 40 mg PO BID 90 days sennosides (Francesca-alcon) Take one tablet in the morning and two tablets at bedtime PO PRN constipation 30 days vitamin A palmitate 20,000 units PO DAILY 2 weeks zolpidem 500f10 mg PO BEDTIME PRN Tobacco use date assessed: 08/19/23 Dental Screening Dental Screen Date: 08/19/23 HPI HPI Comments History of Present Illness Details This is a 53-year-old male with super super obesity and mild recurrent major depression that comes for his physical exam. He is obese with a BMI of 52.1 and declines weight loss surgery. Was advised to diet and exercise as tolerated. Depression has been stable with escitalopram and duloxetine. Denies any chest pain or shortness of breath. Last colonoscopy was [address] Lopez which want it him to repeated in 5 years and I will refer him to Gastroenterology for that matter. Complains of chronic low back pain and will be referred again to pain management. Was referred in 2020. [facility] Medical History (Updated 09/04/23 @ 10:51 by Linda William MD) Morbid obesity Abdominal bloating Mild recurrent major depression Physical exam Bleeding hemorrhoids Insomnia Lumbar degenerative disc disease Thoracic spine pain Right hip pain B12 deficiency Spina bifida Epistaxis Right ankle sprain Polyarthralgia Fibromyalgia Arthritis HTN (hypertension) Surgical History History of esophagogastroduodenoscopy (EGD) Hx of colonoscopy History of surgery of head History of carpal tunnel surgery History of biopsy Family History Father Cancer Bone cancer Mother Stomach problems Sister No problems noted. Sister Diabetes Brother Diabetes Sleep apnea Bursitis Son No problems noted. Son No problems noted. Son No problems noted. Son Diabetes Daughter Diabetes Daughter No problems noted. Social History Housing: Apartment Are you a primary primary care nurse to a significant other at home: No Do you presently have visiting nurse or other home services: Yes (spouse is CEMENT PRODUCTION PLANT OPERATOR) Alcohol intake: never Patient Tobacco Use Status: Never used Tobacco e-Cigarette/Vaping Use: Never Used Second Hand Smoke Exposure: No service: No Current occupational status: disabled Cognitive needs: No Hearing needs: No Vision needs: Yes Questionnaire Thrive Questionnaire Date Thrive assessed: 08/19/23 KELSI-7 AMB Questionnaire KELSI-7 Date KELSI - 7 assessed: 08/19/23 Source: Developed by Drs. Reggie Abdul, Angela Tee, Rajinder Watson and colleagues, with an educational maria esther from [employer]. Review of Systems Const All systems reviewed & are unremarkable except as noted in HPI and below Eyes Reports no additional complaints, Denies change in vision and Denies other visual disturbances Card Denies chest pain at rest, Denies chest pain with activity, Denies edema, Denies irregular heart rhythm, Denies claudication, Denies dyspnea, Denies dyspnea on exertion, Denies orthopnea, Denies paroxysmal nocturnal dyspnea and Denies slow heart rate Resp Denies cough, Denies dyspnea and Denies dyspnea on exertion Physical exam (Primary Care) Vital Signs: Last Vital Signs BP 160/80 H 09/04/23 09:36 BMI result Body Mass Index 52.1 Tobacco/Smoking Status: Tobacco use Status Tobacco use date assessed 08/19/23 09/04/23 09:40 Patient Tobacco Use Status Never used Tobacco 09/04/23 09:40 e-Cigarette/Vaping Use Never Used 09/04/23 09:40 Thrive Assessment: Date of Thrive Assessment Date Thrive assessed 08/19/23 09/04/23 09:40 Const Orientation/consciousness: patient oriented x3 HENMT Head: Yes normal to inspection, Yes normocephalic and Yes atraumatic Ears: external ears normal Eyes General: appearance normal, both eyes and all related structures Eyelids: Yes eyelids normal Conjunctivae: conjunctivae normal Neck Neck: Yes normal visual inspection and Yes supple Resp Effort & Inspection: normal respiratory effort Auscultation: clear to auscultation bilaterally Cardio Jugular venous distension: no JVD Rate: regular rate Rhythm: regular rhythm Heart sounds: S1 normal heart sound present and S2 normal heart sound present GI Inspection: Yes normal to inspection Palpation (GI): Soft to palpation and nontender Auscultation: normal bowel sounds Skin General skin exam: no rashes or lesions noted Neuro General: patient oriented x3 and no focal motor deficits Extrem General: Yes full ROM Psych Appearance: grossly normal Assessment and Plan Assessment & Plan (1) Physical exam: Code(s): Z00.00 - Encounter for general adult medical examination without abnormal findings Plan: Repeat in a year. (2) Mild recurrent major depression: Code(s): F33.0 - Major depressive disorder, recurrent, mild Plan: Continue duloxetine and escitalopram. (3) Super-super obese: Code(s): E66.01 - Morbid (severe) obesity due to excess calories Plan: Declines weight loss surgery. Advised to do diet and exercise. BMI goal is less than 30. Orders: Referrals Gastroenterology Referral Z12.11 - Encounter for screening for malignant neoplasm of colon Pain Management Referral M51.36 - Other intervertebral disc degeneration, lumbar region Coding Level of Care Code Est Pt Prev Care 40-64y(04211) Diagnoses Physical exam Z00.00 Mild recurrent major depression F33.0 Super-super obese E66.01 Time Spent (min) 31
== END 2023-09-04 10:10 | disposition home or self-care (01) ==
PROVIDERS: PCP Internal Medicine; Visit Provider Internal Medicine
DX: Z00.00 Encounter for general adult medical examination without abnormal findings (principal); F33.0 Major depressive disorder, recurrent, mild; E66.01 Morbid (severe) obesity due to excess calories; Z68.43 Body mass index [BMI] 50.0-59.9, adult
CPT/HCPCS: 99396

== ENCOUNTER 2023-12-09 10:47 | Outpatient (AMB) | payer OTHER, SELFPAY ==
--- NOTE | 2023-12-09 10:51 | MHC.OFFVIS ---
Vital Signs 12/09/23 10:55 Height 5 ft 5 in Weight 284 lb 6.341 oz BMI 47.3 BP 119/80 Blood Pressure Location Lt brachial Position Sitting Pulse 78 Intake Visit Reasons: discuss colonsocopy Intake Note: Marquez presents in the office as a follow up. CC: Automotive Service Cashier Required: Yes Automotive Service Cashier Name: [id number] Olivia Allergies No Known Allergies [No Known Allergies*] Allergy (Verified 12/09/23 11:05) HPI HPI discuss colonsocopy: Details: 52 yr old m with hx of H pylori here for f/u RECAP: Had been seeing [facility] for constipation, hemorrhoids and GERD rx: omeprazole 20 mg linszess and colace colonoscopy 2018---diverticulosis, hemorrhoids, skin tags, no polyps but rept rec for 5 ys due to spasm upper GI series by bariatric team: 01/2021 Sgrzyipz-mh-pasyxkcblmi gastroesophageal reflux without hiatal hernia. Prominent anterior cervical esophageal web and prominent cricoesophageal sphincter without any evidence of obstruction. US 01/2021-- fatty liver EGD 02/2022: empirical dilation, Path: h pylori, active duodenitis and gastritis Treated with quadruple therapy, subsequent H pylori KERRY was negative INTERIM: he feels well today PPi works really well linaclotide helps constipation but feels he needs a higher dose no abdominal pain no n/v appetite is good weight remains high some bleeding and hemorrhoids, using proctomed EXAM: GENERAL: The patient is obese VITAL SIGNS:see workflow HEENT: Nonicteric sclerae, PERRLA, EOMI. Oropharynx clear. Moist mucous membranes. Conjunctivae appear well perfused. No thyroid mass. CHEST: Chest wall is nontender. HEART: Regular rate and rhythm without murmurs. LUNGS: Clear to auscultation bilaterally. ABDOMEN: Soft, positive bowel sounds, non tender , no organomegaly.no flank tenderness SKIN: No rash, no excessive bruising, petechiae, or purpura. NEUROLOGIC: Cranial nerves II-XII intact without motor/sensory deficit. Psych: appropriate affect A/P: 1/ GERD with reflux, controlled with PPI 2/ H pylori pos--treated 3/ constipation, prob slow transit--getting worse again PLAN: 1/cont PPI, refill MV daily 2/ cont linaclotide but increase dose to 290 mcg 3/ recent labs 09/10--nml HGB, LFT< mild low Vit D 4/ colonoscopy due, screening, colyte, [facility] Medical History (Updated 09/04/23 @ 10:51 by Linda William MD) Morbid obesity Abdominal bloating Mild recurrent major depression Physical exam Bleeding hemorrhoids Insomnia Lumbar degenerative disc disease Thoracic spine pain Right hip pain B12 deficiency Spina bifida Epistaxis Right ankle sprain Polyarthralgia Fibromyalgia Arthritis HTN (hypertension) Surgical History History of esophagogastroduodenoscopy (EGD) Hx of colonoscopy History of surgery of head History of carpal tunnel surgery History of biopsy Family History Father Cancer Bone cancer Mother Stomach problems Sister No problems noted. Sister Diabetes Brother Diabetes Sleep apnea Bursitis Son No problems noted. Son No problems noted. Son No problems noted. Son Diabetes Daughter Diabetes Daughter No problems noted. Social History Housing: Apartment Are you a primary critical care cns to a significant other at home: No Do you presently have visiting nurse or other home services: Yes (spouse is GLASS SAGGER) Alcohol intake: never Patient Tobacco Use Status: Never used Tobacco e-Cigarette/Vaping Use: Never Used Second Hand Smoke Exposure: No service: No Current occupational status: disabled Cognitive needs: No Hearing needs: No Vision needs: Yes Physical Exam Vital Signs: BMI result Body Mass Index 47.3 Quality Reporting (2019) Adult ([facility] 138/07/11/68) Smoking risk assessment performed?: Yes Patient Tobacco Use Status: Never used Tobacco Assessment & Plan Assessment & Plan (1) Constipation: Code(s): K59.00 - Constipation, unspecified Category: Medical Qualifiers: Constipation type: slow transit constipation Qualified Code(s): K59.01 - Slow transit constipation Plan: see above Medications: New hydrocortisone 2.5% (Procto-Med HC) 1 appl CA BID-QID PRN 30 grams 0RF hemorrhoids linaclotide 290 mcg PO DAILY 60 caps 1RF peg-electrolyte soln 420 gram until fecal effluent is clear; do not exceed a total volume of 2,000 mL 240 mL PO Q10M 4,000 mL 0RF Refilled wr-rnk-mqjom-N4-udxgfaz-inatfy 139-14-916-300 mcg (Centrum Silver Men) 1 tab PO DAILY 90 tabs 2RF Discontinued linaclotide (Linzess) Discontinued Reason: Doctor's Order 145 mcg PO DAILY 30 caps 2RF K59.04 - Chronic idiopathic constipation Coding Level of Care Code Est Pt Level 4 (62429) Diagnoses Slow transit constipation K59.01 Constipation type: slow transit constipation
[2023-12-09 10:55] VITALS: BP 119/80; PULSE 78; BMI 47.3
== END 2023-12-09 11:33 | disposition home or self-care (01) ==
PROVIDERS: PCP Internal Medicine; Visit Provider Internal Medicine Gastroenterology
DX: K59.01 Slow transit constipation (principal)
CPT/HCPCS: 99214

== ENCOUNTER → 2023-12-09 10:47 | Outpatient (BNVA) | payer OTHER, SELFPAY | PROVIDERS: PCP Internal Medicine; Visit Provider Internal Medicine Gastroenterology | DX: K59.01 Slow transit constipation (principal) | CPT/HCPCS: 99212 ==

== ENCOUNTER 2024-02-17 11:22 | Outpatient (AMB) | payer OTHER, SELFPAY ==
--- NOTE | 2024-02-17 11:25 | MHC.OFFVIS ---
Vital Signs 02/17/24 11:26 Height 5 ft 5 in Weight 275 lb 12.519 oz BMI 45.9 BP 122/72 Blood Pressure Location Lt brachial Position Sitting Pulse 79 Intake Visit Reasons: 1Y follow up Intake Note: Marquez presents in the office as a 1 year follow up. CC: He states that he has changed his way of eating and he has lost a lot of weight. He states that since they increased Linzess he states that things have been a lot better. Butting Saw Operator Required: Yes Butting Saw Operator Name: [id number] Allergies No Known Allergies [No Known Allergies*] Allergy (Verified 02/17/24 11:37) HPI HPI 1Y follow up: Details: 53 yr old m with hx of H pylori here for f/u RECAP: Had been seeing [facility] for constipation, hemorrhoids and GERD rx: omeprazole 20 mg linszess and colace colonoscopy 2018---diverticulosis, hemorrhoids, skin tags, no polyps but rept rec for 5 ys due to spasm upper GI series by bariatric team: 01/2021 Oziqjxve-mr-wcbktxwpdxl gastroesophageal reflux without hiatal hernia. Prominent anterior cervical esophageal web and prominent cricoesophageal sphincter without any evidence of obstruction. US 01/2021-- fatty liver EGD 02/2022: empirical dilation, Path: h pylori, active duodenitis and gastritis Treated with quadruple therapy, subsequent H pylori KERRY was negative INTERIM: he has colonoscopy scheduled for Nov he is happy with linaclotide 290 mcg --no issues with constipation no abdominal pain no n/v appetite is good he tried proctomed for hemorrhoids and it helps EXAM: GENERAL: The patient is obese VITAL SIGNS:see workflow HEENT: Nonicteric sclerae, PERRLA, EOMI. Oropharynx clear. Moist mucous membranes. Conjunctivae appear well perfused. No thyroid mass. CHEST: Chest wall is nontender. HEART: Regular rate and rhythm without murmurs. LUNGS: Clear to auscultation bilaterally. ABDOMEN: Soft, positive bowel sounds, non tender , no organomegaly.no flank tenderness SKIN: No rash, no excessive bruising, petechiae, or purpura. NEUROLOGIC: Cranial nerves II-XII intact without motor/sensory deficit. Psych: appropriate affect A/P: 1/ GERD with reflux, controlled with PPI 2/ H pylori pos--treated 3/ constipation, prob slow transit--better with linaclotide PLAN: 1/cont PPI, refill MV daily 2/ cont linaclotide 290 mcg 3/ colonoscopy coming up, screening, colyte, bariatric bed PFSH Medical History Morbid obesity Abdominal bloating Mild recurrent major depression Physical exam Bleeding hemorrhoids Insomnia Lumbar degenerative disc disease Thoracic spine pain Right hip pain B12 deficiency Spina bifida Epistaxis Right ankle sprain Polyarthralgia Fibromyalgia Arthritis HTN (hypertension) Surgical History History of esophagogastroduodenoscopy (EGD) Hx of colonoscopy History of surgery of head History of carpal tunnel surgery History of biopsy Family History Father Cancer Bone cancer Mother Stomach problems Sister No problems noted. Sister Diabetes Brother Diabetes Sleep apnea Bursitis Son No problems noted. Son No problems noted. Son No problems noted. Son Diabetes Daughter Diabetes Daughter No problems noted. Social History Housing: Apartment Are you a primary patient care associate to a significant other at home: No Do you presently have visiting nurse or other home services: Yes (spouse is HIDE MEASURING MACHINE OPERATOR) Alcohol intake: never Patient Tobacco Use Status: Never used Tobacco e-Cigarette/Vaping Use: Never Used Second Hand Smoke Exposure: No service: No Current occupational status: disabled Cognitive needs: No Hearing needs: No Vision needs: Yes Physical Exam Vital Signs: Last Vital Signs Pulse 79 02/17/24 11:26 BP 122/72 02/17/24 11:26 BMI result Body Mass Index 45.9 Quality Reporting (2020) Adult ([facility] 138/07/11/68) Smoking risk assessment performed?: Yes Patient Tobacco Use Status: Never used Tobacco Assessment & Plan Assessment & Plan (1) Screen for colon cancer: Code(s): Z12.11 - Encounter for screening for malignant neoplasm of colon Category: Medical Plan: see above Medications: Refilled linaclotide 290 mcg PO DAILY 60 caps 3RF Coding Level of Care Code Est Pt Level 3 (88973) Diagnoses Screen for colon cancer Z12.11
[2024-02-17 11:26] VITALS: BP 122/72; PULSE 79; BMI 45.9
== END 2024-02-17 13:06 | disposition home or self-care (01) ==
LOC: HO.HGI 11:22
PROVIDERS: PCP Internal Medicine; Visit Provider Internal Medicine Gastroenterology
DX: Z01.818 Encounter for other preprocedural examination (principal); Z12.11 Encounter for screening for malignant neoplasm of colon
CPT/HCPCS: 99024

== ENCOUNTER → 2024-02-17 11:22 | Outpatient (BNVA) | payer OTHER, SELFPAY | PROVIDERS: PCP Internal Medicine; Visit Provider Internal Medicine Gastroenterology | DX: Z12.11 Encounter for screening for malignant neoplasm of colon (principal) | CPT/HCPCS: 99212 ==

== ENCOUNTER 2024-02-28 10:31 | Outpatient (REF) | payer OTHER, SELFPAY ==
[2024-02-28 10:54] LABS: MANUAL DIFF FLAG NO
[2024-02-28 11:00] LABS: Basophils Absolute Auto 0.1 X10*3/uL (0.0-0.2); Basophils Percent Auto 0.8 % (0-2); Eosinophils Absolute Auto 0.2 X10*3/uL (0.0-0.4); Eosinophils Percent Auto 2.8 % (0-4); Hematocrit 42.2 % (42.0-52.0); Hemoglobin 14.2 g/dl (14.0-18.0); Imm Gran Abs Auto 0.01 X10*3/uL (0.00-0.03); Imm Gran Pct Auto 0.1 % (0.0-0.4); Lymphocytes Absolute Auto 2.2 X10*3/uL (1.2-4.9); Lymphocytes Percent Auto 29.4 % (20-40); Mean Corpuscular HGB Conc 33.6 g/dl (31.0-36.0); Mean Corpuscular Hemoglobin 29.1 pg (27.0-33.0); Mean Corpuscular Volume 86.5 fL (80.0-98.0); Mean Platelet Volume 8.8 fL (9.4-12.4); Monocytes Absolute Auto 0.7 X10*3/uL (0.1-1.2); Monocytes Percent Auto 9.2 % (2-11); Neutrophils Absolute Auto 4.3 x10*3/uL (2.0-8.3); Neutrophils Percent Auto 57.7 % (45-73); Platelet Count 341 X10*3/uL (160-400); Red Blood Count 4.88 X10*6/uL (4.60-5.80); Red Cell Distribution Width 13.1 % (11.0-16.0); White Blood Count 7.4 X10*3/uL (4.8-10.8)
[2024-02-28 11:58] LABS: Alanine Aminotransferase 27 U/L (0-40); Albumin Level 4.3 g/dL (3.5-5.0); Alkaline Phosphatase 76 U/L (39-117); Anion Gap 9 (12-20); Aspartate Amino Transferase 23 U/L (5-37); Bilirubin Total 0.4 mg/dL (0.0-1.0); Blood Urea Nitrogen 10 mg/dL (9-16); Calcium 9.5 mg/dL (8.4-10.2); Carbon Dioxide 32 mmol/L (22-29); Chloride 105 mmol/L (96-108); Estimated Glomerular Filt Rate > 60; Glucose Fasting 99 mg/dL (60-99); Iron 81 mcg/dL (45-160); Percent Iron Saturation 23 % (15-50); Sodium 142 mmol/L (135-145); Total Iron Binding Capacity 359 mcg/dL (228-428); Total Protein 7.6 g/dL (6.5-8.0); Unsaturated Iron Binding 278 ug/dL; Vitamin D 25-OH Total 40.1 ng/mL (>30)
[2024-02-28 12:23] LABS: Folate 9.9 ng/mL (> or = 4.0); Vitamin B12 379 pg/mL (200-900)
== END 2024-02-28 10:32 | disposition home or self-care (01) ==
LOC: HO.LAB 10:31
PROVIDERS: PCP Internal Medicine; Visit Provider Internal Medicine
DX: D64.9 Anemia, unspecified (principal); R73.02 Impaired glucose tolerance (oral); E53.8 Deficiency of other specified B group vitamins; E55.9 Vitamin D deficiency, unspecified
CPT/HCPCS: 36415; 80053; 82306; 82607; 82746; 83540; 85025

== ENCOUNTER 2024-03-05 09:26 | Outpatient (AMB) | payer OTHER, SELFPAY ==
--- NOTE | 2024-03-05 09:32 | A.OFFPC_ITS ---
Vital Signs 03/05/24 09:34 Height 5 ft 5 in Weight 281 lb BMI 46.8 BP 130/82 Blood Pressure Location Lt brachial Position Sitting Intake Visit Reasons: gerd Intake Note: Patient here for a follow up GERD Crew Member Required: No Accompanied by: Self / Same As Patient Allergies No Known Allergies [No Known Allergies*] Allergy (Verified 03/05/24 09:49) Medication List - Last Reconciled 03/05/24 by Linda William MD bismuth subsalicylate 2 tabs PO QID 14 days cholecalciferol (vitamin D3) 25 mcg PO DAILY 90 days duloxetine (Cymbalta) 60 mg PO DAILY 90 days enalapril maleate 20 mg PO DAILY 90 days escitalopram oxalate 10 mg PO QAM gabapentin 400 mg PO TID 30 days [gel cushion seat As directed] hydrochlorothiazide 25 mg PO QAM 90 days hydrocortisone 2.5% (Procto-Med HC) 1 appl NM BID-QID PRN linaclotide 290 mcg PO DAILY [id number]-[id number]-[id number]-spauffs-hygjiq [id number] mcg (Centrum Silver Men) 1 tab PO DAILY ondansetron HCl 4 mg PO Q8H PRN 4 days pantoprazole 40 mg PO BID peg-electrolyte soln 420 gram 240 mL PO Q10M sennosides (Francesca-alcon) Take one tablet in the morning and two tablets at bedtime PO PRN constipation 30 days vitamin A palmitate 20,000 units PO DAILY 2 weeks zolpidem 500f10 mg PO BEDTIME PRN Tobacco use date assessed: 08/19/23 Dental Screening Dental Screen Date: 03/05/24 Did you have a dental visit in the last 12 months?: No Did you have a dental problem in the last 6 months where you did not have access to dental care?: No Was dental information given to patient?: Patient has dentist HPI HPI Comments History of Present Illness Details This is a 53-year-old male with hypertension, chronic idiopathic constipation, morbid obesity and mild recurrent major depression that comes today for follow-up on his conditions. Blood pressure stable. Constipation stable with senna and Linzess as needed. He is morbidly obese with a BMI of 46.8 and has lost weight. Depression stable with medications and this is follow by Psychiatry. No chest pain or shortness on breath. [facility] Medical History (Updated 03/05/24 @ 11:53 by Linda William MD) Super-super obese Morbid obesity Abdominal bloating Mild recurrent major depression Physical exam Bleeding hemorrhoids Insomnia Lumbar degenerative disc disease Thoracic spine pain Right hip pain B12 deficiency Spina bifida Epistaxis Right ankle sprain Polyarthralgia Fibromyalgia Arthritis HTN (hypertension) Surgical History History of esophagogastroduodenoscopy (EGD) Hx of colonoscopy History of surgery of head History of carpal tunnel surgery History of biopsy Family History Father Cancer Bone cancer Mother Stomach problems Sister No problems noted. Sister Diabetes Brother Diabetes Sleep apnea Bursitis Son No problems noted. Son No problems noted. Son No problems noted. Son Diabetes Daughter Diabetes Daughter No problems noted. Social History Housing: Apartment Are you a primary care clinician to a significant other at home: No Do you presently have visiting nurse or other home services: Yes (spouse is [employer]ASK[employer]AD[employer]) Alcohol intake: never Patient Tobacco Use Status: Never used Tobacco e-Cigarette/Vaping Use: Never Used Second Hand Smoke Exposure: No service: No Current occupational status: disabled Cognitive needs: No Hearing needs: No Vision needs: Yes Questionnaire Thrive Questionnaire Date Thrive assessed: 08/19/23 KELSI-7 AMB Questionnaire KELSI-7 Date KELSI - 7 assessed: 08/19/23 Source: Developed by Drs. Reggie Abdul, Angela Tee, Rajinder Watson and colleagues, with an educational maria esther from [employer]. Review of Systems Const All systems reviewed & are unremarkable except as noted in HPI and below Card Denies chest pain at rest, Denies chest pain with activity, Denies edema, Denies irregular heart rhythm, Denies claudication, Denies dyspnea, Denies dyspnea on exertion, Denies orthopnea, Denies paroxysmal nocturnal dyspnea and Denies slow heart rate Resp Denies cough, Denies dyspnea and Denies dyspnea on exertion GI Denies abdominal pain, Denies change in bowel habits, Denies excessive flatus, Denies nausea and Denies vomiting Physical exam (Primary Care) Vital Signs: Last Vital Signs BP 130/82 03/05/24 09:34 BMI result Body Mass Index 46.8 BMI Assessment/Plan discussion: High BMI High, discussed plan: lifestyle, weight reduction, dietary and physical activity Tobacco/Smoking Status: Tobacco use Status Tobacco use date assessed 08/19/23 03/05/24 09:33 Patient Tobacco Use Status Never used Tobacco 03/05/24 09:33 e-Cigarette/Vaping Use Never Used 03/05/24 09:33 Thrive Assessment: Date of Thrive Assessment Date Thrive assessed 08/19/23 03/05/24 09:33 Resp Effort & Inspection: normal respiratory effort Auscultation: clear to auscultation bilaterally Cardio Jugular venous distension: no JVD Rate: regular rate Rhythm: regular rhythm Heart sounds: S1 normal heart sound present and S2 normal heart sound present Extrem General: Yes full ROM Office Procedures Flu Questionnaire Does the patient have a severe egg allergy?: No Does the patient have severe life threatening allergies?: No Does the patient have a fever or illness today?: No Has the patient ever had Guillain-[place] Syndrome?: No Has the patient ever had any past reaction to a flu shot?: No Immunizations Fluarix Triv [id number] (PF) 45 mcg (15 mcg x 3)/0.5 mL IM syringe Performing Provider: Linda William MD Performing [facility] Administered by: KIMI Cintron on 03/05/24 09:43 Dose Route Admin Location Dispensed Lot Number Expiration Date [facility] Head Grinder 0.5 mL IM Left Deltoid 0.5 mL [id number] 11/16/24 [id number] [employer] VIS Given Date VIS Provided VIS Publication Date 03/05/24 Single Vaccine 20 Eligibility Eligibility Date Funding Source Not [facility] Eligible 03/05/24 Private Coding Level of Care Code Est Pt Level 4 (22653) Complex EM visit Add On G2211 Diagnoses Chronic idiopathic constipation K59.04 Morbid obesity E66.01 Mild recurrent major depression F33.0 Essential hypertension I10 Hypertension type: essential hypertension Time Spent (min) 22 Assessment & Plan Assessment & Plan (1) Chronic idiopathic constipation: Code(s): K59.04 - Chronic idiopathic constipation Category: Medical Plan: Continue Linzess and senna as needed. (2) Morbid obesity: Code(s): E66.01 - Morbid (severe) obesity due to excess calories Category: Medical Plan: Start diet and exercise. BMI goal is less than 30. (3) Mild recurrent major depression: Code(s): F33.0 - Major depressive disorder, recurrent, mild Category: Medical Plan: Continue escitalopram. Follow-up with psychiatry. (4) HTN (hypertension): Code(s): I10 - Essential (primary) hypertension Category: Medical Qualifiers: Hypertension type: essential hypertension Qualified Code(s): I10 - Essential (primary) hypertension Plan: Continue enalapril and hydrochlorothiazide. Blood pressure goal is equal or less than 130/80. Orders: Orders Influenza [id number] Immunization Today Z23 - Encounter for immunization Medications: New hydrochlorothiazide 25 mg PO DAILY 90 tabs 1RF 90 days Refilled hydrochlorothiazide 25 mg PO QAM 90 tabs 3RF 90 days enalapril maleate 20 mg PO DAILY 90 tabs 3RF 90 days I10 - Essential (primary) hypertension
[2024-03-05 09:34] VITALS: BP 130/82; BMI 46.8
== END 2024-03-05 09:58 | disposition home or self-care (01) ==
PROVIDERS: PCP Internal Medicine; Visit Provider Internal Medicine
DX: K59.04 Chronic idiopathic constipation (principal); E66.01 Morbid (severe) obesity due to excess calories; F33.0 Major depressive disorder, recurrent, mild; Z68.42 Body mass index [BMI] 45.0-49.9, adult; I10 Essential (primary) hypertension

== ENCOUNTER → 2024-03-05 09:26 | Outpatient (BNVA) | payer OTHER, SELFPAY | PROVIDERS: PCP Internal Medicine; Visit Provider Internal Medicine | DX: K59.04 Chronic idiopathic constipation (principal); F33.0 Major depressive disorder, recurrent, mild; I10 Essential (primary) hypertension; E66.01 Morbid (severe) obesity due to excess calories; Z68.42 Body mass index [BMI] 45.0-49.9, adult; Z79.899 Other long term (current) drug therapy; Z23 Encounter for immunization | CPT/HCPCS: 90471; 90656; 99212 ==

== ENCOUNTER 2024-04-09 09:16 | Day surgery (SDC) | payer OTHER, SELFPAY ==
[2024-04-07 10:37] VITALS: BMI 45.8
--- NOTE | 2024-04-08 10:50 | HO.ANESPROP2 ---
Documented by User: Netta Shields NP 04/08/24 10:53 HPI - Anesthesia Eval Consult details Narrative: 53yo M for Colonoscopy BMI 45.8 PMFSH Active Problems Active Problems: All Active Problems Nephrolithiasis (Acute) Right ankle pain (Acute) Lower abdominal pain (Acute) H. pylori infection (Acute) Calcific tendonitis of left shoulder (Acute) Osteoarthritis of left acromioclavicular joint (Acute) Screen for colon cancer (Acute) Left shoulder pain (Acute) Chronic idiopathic constipation (Acute) Grade III hemorrhoids (Acute) GERD (gastroesophageal reflux disease) (Acute) Dysphagia (Acute) Degenerative arthritis of thoracic spine (Acute) Thoracic degenerative disc disease (Acute) Spondylolisthesis, lumbar region (Acute) Depression screening (Acute) MDD (major depressive disorder) (Acute) Morbid obesity (Acute) Hemorrhoid (Acute) Viral illness (Acute) Sore throat (viral) (Acute) Impaired glucose tolerance (Acute) Osteoarthritis of right knee (Acute) Mild recurrent major depression (Acute) Physical exam (Acute) Bleeding hemorrhoids (Acute) Insomnia (Acute) Lumbar degenerative disc disease (Acute) Thoracic spine pain (Acute) Right hip pain (Acute) B12 deficiency (Acute) Epistaxis (Acute) Right ankle sprain (Acute) Fibromyalgia (Acute) Polyarthralgia (Acute) HTN (hypertension) (Acute) Past Medical History Medical History (Updated 03/05/24 @ 11:53 by Linda William MD) Super-super obese Morbid obesity Abdominal bloating Mild recurrent major depression Physical exam Bleeding hemorrhoids Insomnia Lumbar degenerative disc disease Thoracic spine pain Right hip pain B12 deficiency Spina bifida Epistaxis Right ankle sprain Polyarthralgia Fibromyalgia Arthritis HTN (hypertension) Family History Family History Father Cancer Bone cancer Mother Stomach problems Sister No problems noted. Sister Diabetes Brother Diabetes Sleep apnea Bursitis Son No problems noted. Son No problems noted. Son No problems noted. Son Diabetes Daughter Diabetes Daughter No problems noted. Family history of problems with anesthesia: No Surgical History Surgical History History of esophagogastroduodenoscopy (EGD) Hx of colonoscopy History of surgery of head History of carpal tunnel surgery History of biopsy History of Problems with Anesthesia: No Social History Social History Housing: Apartment Are you a primary health care / medical job titles to a significant other at home: No Do you presently have visiting nurse or other home services: No Alcohol intake: never Patient Tobacco Use Status: Never used Tobacco e-Cigarette/Vaping Use: Never Used Second Hand Smoke Exposure: No Use of substances other than those prescribed or required for medical reasons: No Have you been hit, kicked, punched, or otherwise hurt by someone within the past year? If so, by whom?: No Are you DNR?: No Advance Directives: No Advance Directives Information Provided: No Advance Directives on File: No Recently lost weight without trying: No How much weight loss: Not applicable Eating poorly because of decreased appetite: No Nutrition screen score: 0 Nutrition Risks: No Nutritional Risk Poor oral hygiene: No (new upper crown x1) service: No Current occupational status: disabled Cognitive needs: No Hearing needs: No Vision needs: Yes Meds Allergies Allergy/AdvReac Type Severity Reaction Status Date / Time No Known Allergies Allergy Verified 04/09/24 10:04 [No Known Allergies*] Home Medications ?Medication ?Instructions ?Recorded ?Confirmed ?Last Taken ?Type escitalopram oxalate 10 mg tablet 10 mg PO QAM 11/15/20 04/09/24 Unknown History zolpidem 10 mg tablet 500f10 mg PO BEDTIME PRN Sleep 11/15/20 04/09/24 Unknown History Exam Height,Weight and Vital Signs: Height 5 ft 5 in Weight 124.738 kg Assessment and Plan Assessment Anesthesia Assessment: Chart Reviewed Final Anesthetic Review Family History of Problems with Anesthesia: No History of Problems with Anesthesia: No Documented by User: Garrett Roy MD 04/09/24 10:30 PMFSH Past Medical History Medical History (Updated 03/05/24 @ 11:53 by Linda William MD) Super-super obese Morbid obesity Abdominal bloating Mild recurrent major depression Physical exam Bleeding hemorrhoids Insomnia Lumbar degenerative disc disease Thoracic spine pain Right hip pain B12 deficiency Spina bifida Epistaxis Right ankle sprain Polyarthralgia Fibromyalgia Arthritis HTN (hypertension) Family History Family History Father Cancer Bone cancer Mother Stomach problems Sister No problems noted. Sister Diabetes Brother Diabetes Sleep apnea Bursitis Son No problems noted. Son No problems noted. Son No problems noted. Son Diabetes Daughter Diabetes Daughter No problems noted. Surgical History Surgical History History of esophagogastroduodenoscopy (EGD) Hx of colonoscopy History of surgery of head History of carpal tunnel surgery History of biopsy Social History Social History Housing: Apartment Are you a primary health care / medical job titles to a significant other at home: No Do you presently have visiting nurse or other home services: No Alcohol intake: never Patient Tobacco Use Status: Never used Tobacco e-Cigarette/Vaping Use: Never Used Second Hand Smoke Exposure: No Use of substances other than those prescribed or required for medical reasons: No Have you been hit, kicked, punched, or otherwise hurt by someone within the past year? If so, by whom?: No Are you DNR?: No Advance Directives: No Advance Directives Information Provided: No Advance Directives on File: No Recently lost weight without trying: No How much weight loss: Not applicable Eating poorly because of decreased appetite: No Nutrition screen score: 0 Nutrition Risks: No Nutritional Risk Poor oral hygiene: No (new upper crown x1) service: No Current occupational status: disabled Cognitive needs: No Hearing needs: No Vision needs: Yes Meds Allergies Allergy/AdvReac Type Severity Reaction Status Date / Time No Known Allergies Allergy Verified 04/09/24 10:04 [No Known Allergies*] Home Medications ?Medication ?Instructions ?Recorded ?Confirmed ?Last Taken ?Type escitalopram oxalate 10 mg tablet 10 mg PO QAM 11/15/20 04/09/24 Unknown History zolpidem 10 mg tablet 500f10 mg PO BEDTIME PRN Sleep 11/15/20 04/09/24 Unknown History Exam Airway Mallampati Class: III TM Dist: <=3cm Neck ROM: Full Loose/Missing/Broken Teeth: No Heart: ok Lungs: ok. SpO2 94% on room air. Assessment and Plan Assessment Anesthesia Assessment: Anesthesia Plan Discussed Final Anesthetic Review NPO: Yes ASA Class: III Final Preanesthetic Review: No Changes in Pt Med Stat, Meds/Allgs Chart Reviewed, Consent Obtained/Reviewed and Anes Risks/Benef Reviewed Patient Risk: High Procedure Risk: Intermediate Anesthetic Plan Anesthetic Plan: Agree w/ Assess. and Plan and TIVA Disposition: Standard PACU
--- NOTE | 2024-04-09 10:06 | P.HPSUR_ITS ---
Pre-Procedural Eval Section A - 24 Hr Update-Section A only Date of Service: 04/09/24 Section B - Complete if H&P > 30 days Chief Complaint: screening Relevant Family History (Specify if Yes): No Relevant Social History: None Present Medications: None Medical History: Significant History (Super-super obese Morbid obesity Abdominal bloating Mild recurrent major depression Bleeding hemorrhoids Insomnia Lumbar degenerative disc disease Thoracic spine pain Right hip pain B12 deficiency Spina bifida Epistaxis Right ankle sprain Polyarthralgia Fibromyalgia Arthritis HTN (hypertension)) History of Previous Operations: Relevant previous surgery/procedure and date(s) (History of esophagogastroduodenoscopy (EGD) Hx of colonoscopy History of surgery of head History of carpal tunnel surgery History of biopsy) Allergies: Allergies Allergy/AdvReac Type Severity Reaction Status Date / Time No Known Allergies Allergy Verified 04/09/24 10:04 [No Known Allergies*] Review of Systems Sugical H&P ROS: Negative: Constitution, Cardiovascular, Respiratory, Ne urological, Psychiatric, Hem-Onc, Allergic/Immunologic, Gastrointestinal, Genitourinary, Musculoskeletal, Integumentary, Endocrine and Eyes/Ears/Nose/Throat Exam Surgical H&P Exam: Normal: HEENT, Normal: Heart, Normal: Lungs, Normal: Extremities, Normal: Abdomen, Normal: Skin and Normal: Neurological Plan Diagnosis/Plan: Unchanged I have reviewed the history and physical and performed a pertinent physical examination on my patient. No changes have occurred unless specified. Time Spent With Patient Time: Total time managing care of this patient today ____ minutes.
[2024-04-09 10:08] VITALS: BMI 47.2
[2024-04-09 10:14] VITALS: BP 141/83; PULSE 71; RESP 16; TEMP 36.2; O2SAT 96
[2024-04-09] MEDS: Lactated Ringers 1,000 ML 100 ML IVCONT (10:20)
--- NOTE | 2024-04-09 11:25 | HO.OPN-COLON ---
Colonoscopy Operative Note Operative Note Date of Service: 04/09/24 Narrative: Operative Information Procedure Description: Colonoscopy Indication: screening Anesthesia: MAC COLONOSCOPY Instrument: Olympus variable stiffness adult scope 190L Colonoscopy Monitoring: Vital signs and clinical assessment, continuous EKG monitoring, Pulse oximetry, Carbon Dioxide monitoring and blood pressure monitoring were done throughout the procedure. Colon withdrawal time was 11 minutes. Procedure: The patient was placed in the left lateral decubitis position and pre-procedure medications were administered. After a digital rectal examination of the ano-rectum, the video colonoscope was inserted into the rectum and advanced through the colon to the cecum/TI. The colonoscope was slowly withdrawn in a retrograde panoramic fashion and the colon mucosa was carefully examined including a retroflexed view of the rectum. Findings and interventions are described below. Procedure Difficulty: easy Findings: Terminal Ileum-normal Cecum:normal rigth sided retroflexion- normal Ascending Colon: normal Transverse Colon -normal Descending Colon:normal Sigmoid Colon: normal Rectum: Retroflexion with small internal hemorrhoids seen, grade I, x2 sessile polyps 4-5 mm removed with cold snare Anorectum - normal Intervention: cold snare Colon preparation: [place] Bowel Preparation Scale Right colon; 1-2 Transverse colon: 2 Left colon; 2 (0 = Unprepared colon segment with mucosa not seen due to solid stool that cannot be cleared. 1 = Portion of mucosa of the colon segment seen, but other areas of the colon segment not well seen due to staining, residual stool and/or opaque liquid. 2 = Minor amount of residual staining, small fragments of stool and/or opaque liquid, but mucosa of colon segment seen well. 3 = Entire mucosa of colon segment seen well with no residual staining, small fragments of stool or opaque liquid) Impression and Post Procedure Diagnosis: colon polyps internal hemorrhoids Plan: High fiber diet leaflet Avoid straining at stool, epsom salts and sitz bath, anusol supps or cream Repeat Colonoscopy in 5 years due to some areas of fair prep on the right or earlier if clinically indicated Above findings were reviewed with the patient and relevant handouts were provided if indicated.
[2024-04-09 11:31] VITALS: BP 128/66; PULSE 69; RESP 18; TEMP 36.6; O2SAT 96
[2024-04-09 11:46] VITALS: BP 133/69; PULSE 56; RESP 18; TEMP 36.4; O2SAT 98
== END 2024-04-09 12:10 | disposition home or self-care (01) ==
PROVIDERS: PCP Internal Medicine; Visit Provider Internal Medicine Gastroenterology
PROC: 0DJD8ZZ Inspection of Lower Intestinal Tract, Via Natural or Artificial Opening Endoscopic (ICD-10-PCS; CPT 45378; principal; 2024-04-09 11:20)
DX: Z12.11 Encounter for screening for malignant neoplasm of colon (principal); D12.8 Benign neoplasm of rectum; K57.30 Diverticulosis of large intestine without perforation or abscess without bleeding; K59.01 Slow transit constipation; K64.0 First degree hemorrhoids; R14.0 Abdominal distension (gaseous); K21.9 Gastro-esophageal reflux disease without esophagitis; I10 Essential (primary) hypertension; E66.01 Morbid (severe) obesity due to excess calories; Z68.42 Body mass index [BMI] 45.0-49.9, adult; M79.7 Fibromyalgia; Q05.9 Spina bifida, unspecified; F33.0 Major depressive disorder, recurrent, mild; Z79.899 Other long term (current) drug therapy; Z98.890 Other specified postprocedural states
CPT/HCPCS: 45385; 88305; J1596; J2003; J2704; J3010

== ENCOUNTER → 2024-04-09 09:16 | Outpatient (BNV) | payer OTHER, SELFPAY | PROVIDERS: PCP Internal Medicine; Visit Provider Internal Medicine Gastroenterology | DX: Z12.11 Encounter for screening for malignant neoplasm of colon (principal); D12.8 Benign neoplasm of rectum; K64.0 First degree hemorrhoids | CPT/HCPCS: 45385 ==

== ENCOUNTER 2024-06-15 12:34 | Outpatient (AMB) | payer OTHER, SELFPAY ==
[2024-06-15 12:43] VITALS: BP 119/68; PULSE 82; BMI 46.4
--- NOTE | 2024-06-15 12:43 | A.OFFVIS_ITS ---
Vital Signs 06/15/24 12:43 Height 5 ft 5 in Weight 278 lb 10.629 oz BMI 46.4 BP 119/68 Blood Pressure Location Rt brachial Position Sitting Pulse 82 Intake Visit Reasons: 4 months wks f/u Constipation Intake Note: Lux presents in follow up of constipation and s/p colonoscopy. CC: Patient c/o LUQ abdominal pain sometimes after eating. Occupational Therapist Assistant Required: Yes Accompanied by: self Allergies No Known Allergies [No Known Allergies*] Allergy (Verified 06/15/24 12:56) HPI HPI 4 months wks f/u Constipation: Details: 53 yr old m with hx of H pylori here for f/u RECAP: Had been seeing [facility] for constipation, hemorrhoids and GERD rx: omeprazole 20 mg linszess and colace colonoscopy 2017---diverticulosis, hemorrhoids, skin tags, no polyps but rept rec for 5 ys due to spasm upper GI series by bariatric team: 01/2021 Zrrxkphe-jo-okthfetzoxy gastroesophageal reflux without hiatal hernia. Prominent anterior cervical esophageal web and prominent cricoesophageal sphincter without any evidence of obstruction. US 01/2021-- fatty liver EGD 02/2022: empirical dilation, Path: h pylori, active duodenitis and gastritis Treated with quadruple therapy, subsequent H pylori KERRY was negative colo 05/12- TA removed with small int hemorrhoids INTERIM: he is doing well no constipation he notices swelling and discomfort in right groin when he bends no abdominal pain no n/c EXAM: GENERAL: The patient is obese VITAL SIGNS:see workflow HEENT: Nonicteric sclerae, PERRLA, EOMI. Oropharynx clear. Moist mucous membranes. Conjunctivae appear well perfused. No thyroid mass. CHEST: Chest wall is nontender. HEART: Regular rate and rhythm without murmurs. LUNGS: Clear to auscultation bilaterally. ABDOMEN: Soft, positive bowel sounds, non tender , no organomegaly.no flank tenderness--no obvioud hernia or masses seen on exam, but v obese SKIN: No rash, no excessive bruising, petechiae, or purpura. NEUROLOGIC: Cranial nerves II-XII intact without motor/sensory deficit. Psych: appropriate affect A/P: 1/ GERD with reflux, controlled with PPI 2/ H pylori pos--treated 3/ constipation, prob slow transit--better with linaclotide 4/ right sided swelling PLAN: 1/cont PPI, refill MV daily 2/ cont linaclotide 290 mcg 3/ CT A/P with PO contrast to eval for any mass or lesions, hernia--if hernia, then refer surg [facility] Medical History (Updated 06/15/24 @ 13:16 by Brenda Carvajal MD) Super-super obese Morbid obesity Abdominal bloating Mild recurrent major depression Physical exam Bleeding hemorrhoids Insomnia Lumbar degenerative disc disease Thoracic spine pain Right hip pain B12 deficiency Spina bifida Epistaxis Right ankle sprain Polyarthralgia Fibromyalgia Arthritis HTN (hypertension) Surgical History (Updated 06/15/24 @ 12:57 by JUAN ANTONIO Lauren) History of esophagogastroduodenoscopy (EGD) Hx of colonoscopy History of surgery of head History of carpal tunnel surgery History of biopsy Family History Father Cancer Bone cancer Mother Stomach problems Sister No problems noted. Sister Diabetes Brother Diabetes Sleep apnea Bursitis Son No problems noted. Son No problems noted. Son No problems noted. Son Diabetes Daughter Diabetes Daughter No problems noted. Social History Housing: Apartment Are you a primary career development director to a significant other at home: No Do you presently have visiting nurse or other home services: No Alcohol intake: never Patient Tobacco Use Status: Never used Tobacco e-Cigarette/Vaping Use: Never Used Second Hand Smoke Exposure: No service: No Current occupational status: disabled Cognitive needs: No Hearing needs: No Vision needs: Yes Physical Exam Vital Signs: Last Vital Signs Pulse 82 06/15/24 12:43 BP 119/68 06/15/24 12:43 BMI result Body Mass Index 46.4 Quality Reporting (2019) Adult ([facility] 138/07/11/68) Smoking risk assessment performed?: Yes Patient Tobacco Use Status: Never used Tobacco Assessment & Plan Assessment & Plan (1) Right inguinal pain: Code(s): R10.31 - Right lower quadrant pain Category: Medical Plan: as above Orders: Orders CT abdomen pelvis wo IV con Today R10.31 - Right lower quadrant pain Medications: Refilled linaclotide 290 mcg PO DAILY 60 caps 3RF Coding Level of Care Code Est Pt Level 4 (89373) Diagnoses Right inguinal pain R10.31
--- OUTSIDE RECORDS SUMMARY | 2024-06-15 17:17 | XMS_ITS | Encounter Summary ---
Author Organization [employer] Address [address] [place] [address] Care Team Providers Care Fiscal Services Manager Name Role Phone Unavailable Primary Care Provider Unavailabl e Encounter Details Date Type Department Care Team (Latest Contact Info) Description 11/15/2021 Abstract [facility] CONVERSIONS Dental, Provider, DDS Social History Tobacco Use Types Packs/Day Years Used Date Smoking Tobacco: Never Assessed Sex and Gender Information Value Date Recorded Sex Assigned at Male 03/19/2022 10:30 AM EDT Legal Sex Male 10:30 AM EDT Gender Identity Male 03/19/2022 10:30 AM EDT Sexual Orientation Straight 03/19/2022 10 :30 AM EDT documented as of this encounter Plan of Treatment Not on file documented as of this encounter Visit Diagnoses Not on filedocumented in this encounter
--- OUTSIDE RECORDS SUMMARY | 2024-06-15 17:17 | XMS_ITS | Clinical Summary ---
Author Organization [employer] Address [address] [place] [address] Care Team Providers Care Bottle Packer Name Role Phone Unavailable Primary Care Provider Unavailabl e Allergies No known active allergies Medications traMADol (Ultram) 50 MG tablet Take 1 tablet by mouth every 6 (six) hours. Active omeprazole (PriLOSEC) [address] capsule Take 1 capsule by mouth at bed time. 10/16/2017 Active hydroCHLOROthia zide (HYDRODiuril) 12.5 MG tablet Take 1 tablet by mouth at bed time. Active gabapentin (Neurontin) 100 MG capsule Take by mouth. Active DULoxetine (Cymbalta) [address] capsule Take 1 capsule by mouth at bed time. Active cyclobenzaprine (Flexeril) 10 MG tablet Take 1 tablet by mouth every 12 (twelve) hours. 05/31/2016 Active acetaminophen (Tylenol) 500 MG tablet Take 1 tablet (500 mg) by mouth every 6 (six) hours if needed for mild pain for up to 20 doses. 20 tablet 12/20/2023 Active ibuprofen 800 MG tablet Take 1 tablet (800 mg) by mouth every 8 (eight) hours. 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 [address] [place] [address] Coe-Brown, [place], DDS Full coverage crown needed for tooth at risk for fracture (Primary Dx) 03/19/2024 1:30 PM EDT Office Visit [facility] [address] [place] [address] Coe-Brown, [place], DDS Full coverage crown needed for tooth at risk for fracture (Primary Dx) from Last 3 Months Immunizations Name Administration Dates Next Due Influenza injectable quadriv alent IIV4 with preservative 03/02/2019,02/19/2018,04/15/2017,2015 Influenza injectable quadriv alent preservative free 04/04/2022,03/01/2021 Moderna Covid-19 Vaccine 12+ 03/02/2019,02/20/20 18 Zoster, Recombinant 02/01/2023,11/30/2022 Social History Tobacco Use Types Packs/Day Years Used Date Smoking Tobacco: Never Smokeless Tobacco: Never Tobacco Cessation:Counseling Given: Not Answered Sex and Gender Information Value Date Recorded Sex Assigned at Male 03/19/2022 10:30 AM EDT Legal Sex Male 10:30 AM EDT Gender Identity Male 03/19/2022 10:30 AM EDT Sexual Orientation Straight 03/19/2022 10 :30 AM EDT Last Filed Vital Signs Vital Sign Reading Time Taken Comments Blood Pressure 112/78 04/08/2024 1:50 PM EST Pulse 72 03/19/2023 10:14 AM EDT Temperature - - Respiratory Rate - - Oxygen Saturation - - Inhaled Oxygen Concentration - - Weight - - Height - - Body Mass Index - - Plan of Treatment Health Maintenance Due Date Last Done Comments CT Colonography 1968 Colonoscopy 1968 Colorectal Cancer Screening 1968 Depression Screening 1968 FIT DNA/Cologuard 1968 FIT 1968 FOBT 1968 HIV Screening 1968 Lipid Panel 1968 SDOH Screening 1968 Sigmoidoscopy 1968 Alcohol/Substance Use Screening 1980 Hepatitis C Screening 1986 DTaP/Tdap/Td Vaccines (1 - Tdap) 07/29/1987 Hepatitis B Vaccines (1 of 3 - 19+ 3-dose series) 07/29/1987 Dental Prophylaxis 09/18/2023 03/19/2023, 0 11/15/2021, 02/03/2021, Additional history exists Dental Oral Exam 10/01/2023 04/01/2023, , 07/18/2020, Additional history exists COVID-19 Vaccine ( season) 2024 04/05/2021, 10/05/2020, 09/07/2020, Additional history exists Dental X-Ray: Full Mouth 11/16/2024 11/15/2021, 09/2017 Tobacco Screening 04/08/2025 04/08/2024 Dental X-Ray: Bitewings 04/09/2025 04/08/20 24, 01/08/2024, 03/19/2023, Additional history exists RSV Patients and Patients Aged 60 years or older (1 - 1-dose 75+ series) 07/29/2043 Zoster Vaccines Completed 02/01/2023, 11/30/2022 Influenza Vaccine Completed 03/05/2024, , 04/04/2022, Additional history exists HIB Vaccines Aged Out No longer eligi ble based on patient's age to complete this topic HPV Vaccines Aged Out No longer eligi ble based on patient's age to complete this topic Hepatitis A Vaccines Aged Out No long er eligible based on patient's age to complete this topic IPV Vaccines Aged Out No longer eligi ble based on patient's age to complete this topic Meningococcal Vaccine Aged Out No jodi alejandra eligible based on patient's age to complete this topic Pneumococcal Vaccine: Pediatrics (0 to 5 Years) and At-Risk Patients (6 to 64 Years) Aged Out No longer eligible based on patient's age to complete this topic RSV under 20 months Aged Out No longe r eligible based on patient's age to complete this topic Rotavirus Vaccines Aged Out No longer eligible based on patient's age to complete this topic Procedures Procedure Name Priority Date/Time Associated Diagnosis Comments ADJUNCTIVE GENERAL SERVICES - PROFESSIONAL VISITS - CASE PRESENTATION, SUBSEQUENT TO DETAILED AND EXTENSIVE TREATMENT PLANNING Routine 04/08/2024 2:00 PM EST Full coverage crown needed for tooth at risk for fracture BITEWING - SINGLE RADIOGRAPHIC IMAGE Routine 04/08/2024 2:00 PM EST Full coverage crown needed for tooth at risk for fracture 5 CROWN - PORCELAIN/CERAMIC Routine 04/08/2024 2:00 PM EST Full coverage crown needed for tooth at risk for fracture ADJUNCTIVE GENERAL SERVICES - PROFESSIONAL VISITS - CASE PRESENTATION, SUBSEQUENT TO DETAILED AND EXTENSIVE TREATMENT PLANNING Routine 03/19/2024 1:30 PM EDT Full coverage crown needed for tooth at risk for fracture INTRAORAL - PERIAPICAL FIRST RADIOGRAPHIC IMAGE Routine 03/19/2024 1:30 PM EDT Full coverage crown needed for tooth at risk for fracture CROWN PREP Routine 03/19/2024 1:30 PM EDT Full coverage crown needed for tooth at risk for fracture 5 PREFABRICATED POST AND CORE IN ADDITION TO CROWN Routine 03/19/2024 1:30 PM EDT Full coverage crown needed for tooth at risk for fracture PERIODIC ORAL EVALUATION - ESTABLISHED PATIENT Routine 04/01/2023 3:30 PM EST Encounter for dental examination Gingival recession, localized PROPHYLAXIS - ADULT Routine 03/19/2023 1 0:00 AM EDT Dental plaque DIAGNOSTIC - DIAGNOSTIC IMAGING - INTRAORAL - COMPREHENSIVE SERIES OF RADIOGRAPHIC IMAGES Routine 11/15/2021 12:00 AM EDT from Last 3 Months or Most Recently Relevant to Health Maintenance Insurance DENTAL - [facility]
--- OUTSIDE RECORDS SUMMARY | 2024-06-15 17:17 | XMS_ITS | Encounter Summary ---
Author Organization [employer] Address [address] [place] [address] Care Team Providers Care Cocoa Bean Cleaner Name Role Phone Unavailable Primary Care Provider Unavailabl e Encounter Details Date Type Department Care Team (Latest Contact Info) Description 07/18/2020 Abstract [facility] CONVERSIONS Dental, Provider, DDS Social History Tobacco [...]
--- OUTSIDE RECORDS SUMMARY | 2024-06-15 17:17 | XMS_ITS | Encounter Summary ---
Author Organization [employer] Address [address] [place] [address] Care Team Providers Care Help Desk Rep Name Role Phone Unavailable Primary Care Provider Unavailabl e Encounter Details Date Type Department Care Team (Latest Contact Info) Description 06/27/2018 Abstract [facility] CONVERSIONS Dental, Provider, DDS Social History Tobacco [...]
== END 2024-06-15 15:11 | disposition home or self-care (01) ==
PROVIDERS: PCP Internal Medicine; Visit Provider Internal Medicine Gastroenterology
DX: R10.31 Right lower quadrant pain (principal)
CPT/HCPCS: 99214

== ENCOUNTER → 2024-06-15 12:34 | Outpatient (BNVA) | payer OTHER, SELFPAY | PROVIDERS: PCP Internal Medicine; Visit Provider Internal Medicine Gastroenterology | DX: R10.12 Left upper quadrant pain (principal); K59.00 Constipation, unspecified; K21.9 Gastro-esophageal reflux disease without esophagitis | CPT/HCPCS: 99212 ==

== ENCOUNTER 2024-09-03 14:43 | Outpatient (REF) | payer OTHER, SELFPAY ==
--- NOTE | ~2024-09-03 | CT_ITS ---
CLINICAL HISTORY: R10.31 - Right lower quadrant pain --- Additional Notes or Special Instructions: ri ght inguinal pain and swelling when bends, no obvious swelling on exam CT abdomen and pelvis without contrast Comparison: CT/REG - CT ABDOMEN PELVIS W CON - 09/12/2021 05:11 PM EDT Findings: No consolidation or effusion. The gallbladder and solid organs are within normal limits. No renal stones. No bowel obstruction, pneumoperitoneum, or pneumatosis. Pelvic contents unremarkable. Normal appendix. The bones are intact. IMPRESSION: No acute findings. This document has been electronically signed by: Devin Reis MD on 09/05/2024 08:50:32
--- OUTSIDE RECORDS SUMMARY | 2024-09-03 17:37 | XMS_ITS | Encounter Summary ---
Author Organization [employer] Address [address] [place] [address] Care Team Providers Care Sugar Grinder Name Role Phone Unavailable Primary Care Provider Unavailabl e Encounter Details Date Type Department Care Team (Latest Contact Info) Description 06/27/2018 Abstract [facility] CONVERSIONS Dental, Provider, DDS Social History [...]
--- OUTSIDE RECORDS SUMMARY | 2024-09-03 17:37 | XMS_ITS | Encounter Summary ---
Author Organization [employer] Address [address] [place] [address] Care Team Providers Care Yard Cleaner Name Role Phone Unavailable Primary Care Provider Unavailabl e Encounter Details Date Type Department Care Team (Latest Contact Info) Description 07/18/2020 Abstract [facility] CONVERSIONS Dental, Provider, DDS Social History [...]
--- OUTSIDE RECORDS SUMMARY | 2024-09-03 17:37 | XMS_ITS | Encounter Summary ---
Author Organization [employer] Address [address] [place] [address] Care Team Providers Care Disability Insurance Claim Examiner Name Role Phone Unavailable Primary Care Provider Unavailabl e Encounter Details Date Type Department Care Team (Latest Contact Info) Description 11/15/2021 Abstract [facility] CONVERSIONS Dental, Provider, DDS Social History [...]
--- OUTSIDE RECORDS SUMMARY | 2024-09-03 17:37 | XMS_ITS | Clinical Summary ---
Author Organization [employer] Address [address] [place] [address] Care Team Providers Care Machine Guide Base Winder Name Role Phone Unavailable Primary Care Provider [...] 04/19/2016 Joint pain 04/19/2016 Visual impairment 04/19/2016 Immunizations Name Administration Dates Next Due Influenza [...] of 3 - 19+ 3-dose series) 07/29/1987 Pneumococcal Vaccine: 50+ Years (1 of 1 - PCV) 2018 Dental Prophylaxis 09/18/2023 03/19/2023, 0 11/15/2021, 02/03/2021, Additional history exists Dental Oral Exam 10/01/2023 04/01/2023, , 07/18/2020, Additional history exists COVID-19 Vaccine (2023- season) 2024 04/05/2021, 10/05/2020, 09/07/2020, Additional history [...] topic Meningococcal Vaccine Aged Out No jodi aleajndra eligible based on patient's age to complete this topic RSV under 20 months Aged Out No longe r eligible based on patient's age to complete this topic Rotavirus Vaccines Aged Out No longer eligible based on patient's age to complete this topic Procedures Procedure Name Priority Date/Time Associated Diagnosis Comments BITEWING - SINGLE RADIOGRAPHIC IMAGE Routine 04/08/2024 2:00 PM EST Full coverage crown needed for tooth at risk for fracture PERIODIC ORAL EVALUATION - ESTABLISHED PATIENT Routine 04/01/2023 3:30 PM EST Encounter for dental examination Gingival recession, localized PROPHYLAXIS - ADULT Routine 03/19/2023 1 0:00 AM EDT Dental plaque INTRAORAL - COMPLETE SERIES OF RADIOGRAPHIC IMAGES Routine 11/15/2021 12:00 AM EDT from Last 3 Months or Most Recently Relevant to Health Maintenance Insurance DENTAL - [facility]
[2024-09-03] MEDS: Barium Sulfate Oral (Vanilla) 450 ML ORAL.SUSP 900 ML PO (17:46)
== END 2024-09-03 14:44 | disposition home or self-care (01) ==
LOC: HO.CT 14:43
PROVIDERS: PCP Internal Medicine; Visit Provider Internal Medicine Gastroenterology
DX: R10.31 Right lower quadrant pain (principal)
CPT/HCPCS: 74176

== ENCOUNTER → 2024-09-03 14:47 | Outpatient (BNV) | payer OTHER, SELFPAY | PROVIDERS: PCP Internal Medicine; Visit Provider Specialist | DX: R10.31 Right lower quadrant pain (principal) | CPT/HCPCS: 74176 ==

== ENCOUNTER 2024-09-29 10:41 | Outpatient (REF) | payer OTHER, SELFPAY ==
[2024-09-29 10:53] LABS: MANUAL DIFF FLAG NO
[2024-09-29 11:10] LABS: Basophils Absolute Auto 0.1 X10*3/uL (0.0-0.2); Basophils Percent Auto 0.7 % (0-2); Eosinophils Absolute Auto 0.2 X10*3/uL (0.0-0.4); Eosinophils Percent Auto 2.2 % (0-4); Hematocrit 43.4 % (42.0-52.0); Hemoglobin 14.5 g/dl (14.0-18.0); Imm Gran Abs Auto 0.01 X10*3/uL (0.00-0.03); Imm Gran Pct Auto 0.1 % (0.0-0.4); Lymphocytes Absolute Auto 2.6 X10*3/uL (1.2-4.9); Lymphocytes Percent Auto 32.4 % (20-40); Mean Corpuscular HGB Conc 33.4 g/dl (31.0-36.0); Mean Corpuscular Hemoglobin 28.9 pg (27.0-33.0); Mean Corpuscular Volume 86.6 fL (80.0-98.0); Mean Platelet Volume 8.9 fL (9.4-12.4); Monocytes Absolute Auto 0.7 X10*3/uL (0.1-1.2); Monocytes Percent Auto 8.5 % (2-11); Neutrophils Absolute Auto 4.5 x10*3/uL (2.0-8.3); Neutrophils Percent Auto 56.1 % (45-73); Platelet Count 387 X10*3/uL (160-400); Red Blood Count 5.01 X10*6/uL (4.60-5.80); Red Cell Distribution Width 12.7 % (11.0-16.0); White Blood Count 8.1 X10*3/uL (4.8-10.8)
--- OUTSIDE RECORDS SUMMARY | 2024-09-29 11:53 | XMS_ITS | Clinical Summary ---
Author Organization [employer] Address [address] [place] [address] Care Team Providers Care Physical Therapy Instructor Name Role Phone Unavailable Primary Care Provider [...] Relevant to Health Maintenance Insurance DENTAL - [facility] DENTAL - [facility]
--- OUTSIDE RECORDS SUMMARY | 2024-09-29 11:53 | XMS_ITS | Encounter Summary ---
Author Organization [employer] Address [address] [place] [address] Care Team Providers Care Dockworker Name Role Phone Unavailable Primary Care Provider Unavailabl e Encounter Details Date Type Department Care Team (Latest Contact Info) Description 11/15/2021 Abstract [facility] CONVERSIONS Dental, Provider, DDS Social History [...]
--- OUTSIDE RECORDS SUMMARY | 2024-09-29 11:53 | XMS_ITS | Encounter Summary ---
Author Organization [employer] Address [address] [place] [address] Care Team Providers Care Scrap Separator Name Role Phone Unavailable Primary Care Provider Unavailabl e Encounter Details Date Type Department Care Team (Latest Contact Info) Description 06/27/[address] [facility] CONVERSIONS Dental, Provider, DDS Social History Tobacco [...]
--- OUTSIDE RECORDS SUMMARY | 2024-09-29 11:53 | XMS_ITS | Encounter Summary ---
Author Organization [employer] Address [address] [place] [address] Care Team Providers Care Community Services Coordinator Name Role Phone Unavailable Primary Care Provider Unavailabl e Encounter Details Date Type Department Care Team (Latest Contact Info) Description 07/18/2020 Abstract [facility] CONVERSIONS Dental, Provider, DDS Social History Tobacco [...]
[2024-09-29 12:17] LABS: Alanine Aminotransferase 34 U/L (0-40); Albumin Level 4.4 g/dL (3.5-5.0); Anion Gap 14 (12-20); Aspartate Amino Transferase 33 U/L (5-37); Bilirubin Total 0.5 mg/dL (0.0-1.0); Blood Urea Nitrogen 17 mg/dL (9-16); Calcium 9.4 mg/dL (8.4-10.2); Carbon Dioxide 29 mmol/L (22-29); Chloride 103 mmol/L (96-108); Cholesterol 193 mg/dL (<200); Estimated Glomerular Filt Rate > 60; Glucose Fasting 99 mg/dL (60-99); HDL Cholesterol 52 mg/dL (>40); Iron 83 mcg/dL (45-160); LDL Cholesterol Calculated 127 mg/dL (<100); Percent Iron Saturation 22 % (15-50); Potassium 3.7 mmol/L (3.3-5.1); Sodium 142 mmol/L (135-145); Total Iron Binding Capacity 383 mcg/dL (228-428); Total Protein 7.8 g/dL (6.5-8.0); Triglycerides 70 mg/dL (<150); Unsaturated Iron Binding 300 ug/dL; Vitamin D 25-OH Total 33.8 ng/mL (>30)
[2024-09-29 12:23] LABS: Folate 8.9 ng/mL (> or = 4.0); Vitamin B12 281 pg/mL (200-900)
[2024-09-29 12:42] LABS: Alkaline Phosphatase 83 U/L (39-117)
== END 2024-09-29 10:42 | disposition home or self-care (01) ==
LOC: HO.LAB 10:41
PROVIDERS: PCP Internal Medicine; Visit Provider Internal Medicine
DX: D64.9 Anemia, unspecified (principal); E53.8 Deficiency of other specified B group vitamins; E55.9 Vitamin D deficiency, unspecified; E78.5 Hyperlipidemia, unspecified; N20.0 Calculus of kidney
CPT/HCPCS: 36415; 80053; 80061; 82306; 82607; 82746; 83540; 85025

== ENCOUNTER 2024-10-01 11:22 | Outpatient (AMB) | payer OTHER, SELFPAY ==
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
[2024-10-01 12:17] VITALS: BP 118/80; BMI 45.8
--- OUTSIDE RECORDS SUMMARY | 2024-10-01 12:32 | XMS_ITS | Clinical Summary ---
Author Organization [employer] Address [address] [place] [address] Care Team Providers Care Sports Marketer Name Role Phone Unavailable Primary Care Provider [...] Joint pain 04/19/2016 Visual impairment 04/19/2016 Immunizations Immunization Administration Dates Next Due Influenza injectable quadriv [...] patient's age to complete this topic Meningococcal B Vaccine Aged Out No l onger eligible based on patient's age to complete [...] Relevant to Health Maintenance Insurance DENTAL - [facility] DENTAL [facility]
--- OUTSIDE RECORDS SUMMARY | 2024-10-01 12:32 | XMS_ITS | Encounter Summary ---
Author Organization [employer] Address [address] [place] [address] Care Team Providers Care Slitting Machine Feeder Name Role Phone Unavailable Primary Care Provider Unavailabl e Encounter Details Date Type Department Care Team (Latest Contact Info) Description 11/15/2021 Abstract [facility] CONVERSIONS Dental, Provider, DDS Social [...]
--- OUTSIDE RECORDS SUMMARY | 2024-10-01 12:32 | XMS_ITS | Encounter Summary ---
Author Organization [employer] Address [address] [place] [address] Care Team Providers Care Bookmaker Map Name Role Phone Unavailable Primary Care Provider Unavailabl e Encounter Details Date Type Department Care Team (Latest Contact Info) Description 06/27/2018 Abstract [facility] CONVERSIONS Dental, Provider, DDS Social History [...]
--- OUTSIDE RECORDS SUMMARY | 2024-10-01 12:32 | XMS_ITS | Encounter Summary ---
Author Organization [employer] Address [address] [place] [address] Care Team Providers Care Building Construction Superintendent Name Role Phone Unavailable Primary Care Provider Unavailabl e Encounter Details Date Type Department Care Team (Latest Contact Info) Description 07/18/2020 Abstract [facility] CONVERSIONS Dental, Provider, DDS Social [...]
== END 2024-10-01 12:51 | disposition home or self-care (01) ==
LOC: HO.HMCH 11:23
PROVIDERS: PCP Internal Medicine; Visit Provider Internal Medicine
DX: Z00.00 Encounter for general adult medical examination without abnormal findings (principal); F33.0 Major depressive disorder, recurrent, mild; E66.01 Morbid (severe) obesity due to excess calories; Z68.42 Body mass index [BMI] 45.0-49.9, adult; M43.16 Spondylolisthesis, lumbar region; Z23 Encounter for immunization

== ENCOUNTER → 2024-10-01 11:22 | Outpatient (BNVA) | payer OTHER, SELFPAY | PROVIDERS: PCP Internal Medicine; Visit Provider Internal Medicine | DX: Z00.00 Encounter for general adult medical examination without abnormal findings (principal); I10 Essential (primary) hypertension; K21.9 Gastro-esophageal reflux disease without esophagitis; F33.0 Major depressive disorder, recurrent, mild; M43.16 Spondylolisthesis, lumbar region; E66.01 Morbid (severe) obesity due to excess calories; Z23 Encounter for immunization; Z68.42 Body mass index [BMI] 45.0-49.9, adult | CPT/HCPCS: 90471; 90715; 96127; 99212; 99396 ==

== ENCOUNTER 2024-10-21 13:35 | Outpatient (AMB) | payer OTHER, SELFPAY ==
--- OUTSIDE RECORDS SUMMARY | 2024-10-21 13:47 | XMS_ITS | Encounter Summary ---
Author Organization [employer] Address [address] [place] [address] Care Team Providers Care Oil And Gas Recruiter Name Role Phone Unavailable Primary Care Provider [...]
[2024-10-21 14:06] VITALS: BP 132/75; PULSE 81; RESP 16; O2SAT 97; BMI 45.4
--- NOTE | 2024-10-21 14:06 | A.OFFVIS_ITS ---
Vital Signs 10/21/24 14:06 Height 5 ft 5 in Weight 273 lb BMI 45.4 BP 132/75 Blood Pressure Location Rt brachial Position Sitting Respiration 16 Pulse 81 Pulse Source Pulse Oximeter Pulse Oximetry (%) 97 Oxygen Delivery Method Room Air Intake Visit Reasons: Spondylolisthesis, lumbar region/AMANDA 2020 Pipe Bending Machine Operator Required: Yes Pipe Bending Machine Operator Name: Nereida [id number] Accompanied by: Self / Same As Patient Allergies No Known Allergies [No Known Allergies*] Allergy (Verified 10/01/24 12:33) HPI Comments Details: Visit completed with conference interpreter #[id number] The patient is a 54-year-old male presenting with chronic back pain, which he has endured for over a decade following an injury from 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 Over the years, the pain has persisted and is aggravated by certain positions like sitting or standing for long periods, contributing to numbness in the feet and discomfort in the buttocks. He also experiences occasional urgency in urination linked to these pain episodes. He was informed of a potential arthritis-related condition but has not received a definitive diagnosis. The patient's prior imaging (CT scan) did not reveal any issues explicitly related to the pain, and he has found some relief in symptoms through weight loss and medication like ibuprofen. Despite some alleviation, the pain's chronic nature and influence on daily functionality necessitate further investigation and management. - Onset and Timing: Initiated over ten years ago while lifting heavy bags - Quality and Character: Described as a pinching sensation and causing numbness - Primary Location: Lower back - Radiation: Affects buttocks, feet, and knees - Exacerbating Factors: Sitting, sudden leg movement, standing for prolonged periods - Relieving Factors: Lying down - Interference: Impacts activities involving sitting or standing for long periods - Affect: Pain impacts daily movements, contributing to occasional urinary urgency - Analgesia: Current medication includes ibuprofen, which he reports assists in managing pain - Adverse Effects: No significant adverse effects from current pain relief strategies as per patient report - Activities of Daily Living: Pain ongoing with limitations mainly in sitting and standing postures - Aberrant Drug Behaviors: Absent. No signs of misuse or overreliance on medications reported [facility] Medical History (Updated 10/01/24 @ 12:49 by Linda William MD) Morbid obesity Super-super obese Abdominal bloating Mild recurrent major depression Physical exam Bleeding hemorrhoids Insomnia Lumbar degenerative disc disease Thoracic spine pain Right hip pain B12 deficiency Spina bifida Epistaxis Right ankle sprain Polyarthralgia Fibromyalgia Arthritis HTN (hypertension) Surgical History History of esophagogastroduodenoscopy (EGD) Hx of colonoscopy History of surgery of head History of carpal tunnel surgery History of biopsy Family History Father Cancer Bone cancer Mother Stomach problems Sister No problems noted. Sister Diabetes Brother Diabetes Sleep apnea Bursitis Son No problems noted. Son No problems noted. Son No problems noted. Son Diabetes Daughter Diabetes Daughter No problems noted. Social History Housing: Apartment Are you a primary career counselor to a significant other at home: No Do you presently have visiting nurse or other home services: No Alcohol intake: never Patient Tobacco Use Status: Never used Tobacco e-Cigarette/Vaping Use: Never Used Second Hand Smoke Exposure: No service: No Current occupational status: disabled Cognitive needs: No Hearing needs: No Vision needs: Yes Review of Systems Const Details: - Musculoskeletal: Reports chronic back pain, exacerbations with certain movements - Neurological: Reports numbness in feet - Genitourinary: Reports urinary urgency when pain exacerbates - Gastrointestinal: Denies pain with bowel movements - General: Reports occasional weight reduction aiding in pain severity reduction Physical Exam Vital Signs: Last Vital Signs Pulse 81 10/21/24 14:06 Resp 16 10/21/24 14:06 BP 132/75 10/21/24 14:06 Pulse Ox 97 10/21/24 14:06 Oxygen Delivery Method Room Air 10/21/24 14:06 BMI result Body Mass Index 45.4 General: awake, alert, oriented. Answers questions appropriately. Fully engaged in examination. Skin: warm, dry, intact HEENT: Normocephalic. Hearing intact. Cardiac: External chest normal in appearance. Respiratory: No cough, audible wheezing or stridor. Abdomen: without gross distension. MS: No obvious swelling or deformities. Able to stand on bilateral tiptoes and bilateral heels.? Able to transition from sit to stand unassisted. Ambulates with bilaterally normal heel strike and toe off SLR negative bilaterally Bilateral lower extremity strength 5/5 Facet loading positive bilaterally Decreased lumbar range of motion Tenderness over lower midline lumbar vertebrae and paraspinal muscles Nontender over bilateral PSIS Neurological: Oriented to person, place, time and situation. Thought process intact. No gait abnormalities appreciated. Psychiatric: Appropriate mood and affect. Good judgment and insight. Assessment & Plan Assessment & Plan (1) Spondylolisthesis, lumbar region: Code(s): M43.16 - Spondylolisthesis, lumbar region Category: Medical Plan Referral to physical therapy has been made to assist with strengthening and improving flexibility, which could improve the patient's chronic back pain stemming from likely osteoarthritis. A lower-back X-ray will be ordered to gain further insight into any underlying issues not seen in earlier CT imaging. Continuation of ibuprofen with dietary precaution will be advised, and the use of lidocaine patches will be considered if needed. Subsequent assessments post- therapy will weigh options for additional imaging or treatments such as MRI or injections should symptoms persist. I discussed with the patient the likely chronic pain linked to osteoarthritis and the potential benefits of engaging in physical therapy, which will help in managing pain through improved strength and mobility. The potential need for further evaluation with a lumbar spine X-ray and possibly an MRI was mentioned, alongside the option for injections if therapy provides insufficient relief. Risks and benefits of continuing ibuprofen use were reviewed, emphasizing avoiding stomach issues by taking it with food. The patient understood and agreed to proceed with the outlined management strategy. Patient was informed and verbally consented to the use of an ambient scribe for clinic note documentation during this visit. Orders: Orders XR lumbar spine 6V w bending Today M43.16 - Spondylolisthesis, lumbar region Medications: New ibuprofen Take with food. Do not take with any other nonsteroidal anti-inflammatory medications 600 mg PO Q8H PRN 60 tabs 0RF pain Patient Instructions: - Continue taking ibuprofen as directed with food - Schedule and attend physical therapy sessions as arranged - Complete lumbar spine x-ray as directed - Monitor symptoms and report worsening or changes - Avoid cfkn-ibf-ahllegl anti-inflammatory medications without consulting - Follow up as advised following physical therapy Coding Level of Care Code New Pt Level 4 (92730) Complex EM visit Add On G2211 Diagnoses Spondylolisthesis, lumbar region M43.16
== END 2024-10-21 15:16 | disposition home or self-care (01) ==
LOC: HO.PMC 13:36
PROVIDERS: PCP Internal Medicine; Referring Provider Internal Medicine; Visit Provider Registered Nurse Emergency
DX: M43.16 Spondylolisthesis, lumbar region (principal)
CPT/HCPCS: 99204; G2211

== ENCOUNTER → 2024-10-21 13:35 | Outpatient (BNVA) | payer OTHER, SELFPAY | PROVIDERS: PCP Internal Medicine; Referring Provider Internal Medicine; Visit Provider Registered Nurse Emergency | DX: M43.16 Spondylolisthesis, lumbar region (principal) | CPT/HCPCS: 99202 ==

== ENCOUNTER 2024-10-29 12:42 | Outpatient (REF) | payer OTHER, SELFPAY ==
--- NOTE | ~2024-10-29 | XR_ITS ---
CLINICAL HISTORY: M43.16 - Spondylolisthesis, lumbar region 7 views lumbar spine Comparison: CT/[place] - CT ABDOMEN PELVIS WO IV CON - 09/03/24 17:07 EDT Findings: Grade 1 degenerative anterolisthesis of L4 on 5 which is similar with flexion and extension. No other spondylolisthesis. Vertebral body heights are maintained. Multilevel lumbar discogenic degenerative disease which is most significant at L4-L5. Multilevel lower lumbar predominant facet osteoarthritis. IMPRESSION: 1. Grade 1 degenerative anterolisthesis of L4 on L5 which is similar with flexion and extension. 2. Multilevel lumbar degenerative changes. This document has been electronically signed by: Manolo Gaytan DO on 10/30/2024 11:02:05
--- OUTSIDE RECORDS SUMMARY | 2024-10-29 14:37 | XMS_ITS | Encounter Summary ---
Author Organization [employer] Address [address] [place] [address] Care Team Providers Care Behavioral Interventionist Name Role Phone Unavailable Primary Care Provider Unavailabl e Encounter Details Date Type Department Care Team (Latest Contact Info) Description 06/27/2018 Abstract [facility] CONVERSIONS Dental, Provider, DDS Social History [...]
== END 2024-10-29 12:43 | disposition home or self-care (01) ==
LOC: HO.XRAY 12:42
PROVIDERS: PCP Internal Medicine; Visit Provider Registered Nurse Emergency
DX: M43.16 Spondylolisthesis, lumbar region (principal)
CPT/HCPCS: 72114

== ENCOUNTER → 2024-10-29 12:48 | Outpatient (BNV) | payer OTHER, SELFPAY | PROVIDERS: PCP Internal Medicine; Visit Provider Radiology Diagnostic Radiology | DX: M51.369 Other intervertebral disc degeneration, lumbar region without mention of lumbar back pain or lower extremity pain (principal) | CPT/HCPCS: 72114 ==

== ENCOUNTER 2025-01-11 13:03 | Outpatient (RCR) | payer OTHER, SELFPAY ==
--- NOTE | 2024-12-01 15:49 | MHC.PT.EP ---
[facility] [place] [facility] [place] [facility] [place] [facility] [address] Carmen Lee [address] [phone] F: [phone] F: [phone] F: [phone] F: [phone] Physical Therapy Plan of Care Date of Evaluation: 12/01/24 Date of Surgery: Diagnosis: SPONDYLOLISTHESIS,LUMBAR, SOHAIL LBP W/O RADICULOPATHY-> PT FOR MOBILITY AND STRENGTHENING Assessment: 54 YO MALE REF TO PT WITH SPONDYLOLISTHESIS -> H/O FALLING ON ICE 11 YRS AGO; RECENT LUMB XR REVEALED 1. Grade 1 degenerative anterolisthesis of L4 on L5 which is similar with flexion and extension. 2. Multilevel lumbar degenerative changes. THE Pt HAS DECR POSTURAL AWARENESS, WEAK TRUNK/ CORE MM, LIMITED ACTIVITY DAMIAN, CHRONIC LBP, AND HE NOTED URINARY URGENCYM, WHICH HIS MD IS MONITORING. FUNCTIONALLY, THE Pt HAS DECR TOELR TO PROLONGED STANDING, WALKING, LIFTING/ CARRYING OBJECTS- HE IS MOTIVATED FOR PT TO DEV A HEP AND ADDRESS PAIN MGMT. Frequency and Duration: The patient will be seen 2 X WK x 4 WKS Short Term Goals: Pt DEMON APPROP PPT / ABDOM ACTIV TO ASSIST IN SELF CORRECTING HYPERLORDOTIC LUMBAR REGION INTITIATE HEP DECR LBP TO 3-4/10, DECR LEs RADIC SXS BY 50% [employer] Goals: Pt INDEP W HEP AND SELF SX MGMT TECHN IMPROVED OSWESTRY, AT EVAL 27/50 Pt RESUME FITNESS WALKING, PERF 2:2 SIMUL ADLs W APPROP BODY MECH Treatment Plan: Modalities to reduce pain, spasms and effusion. Manual therapy to restore motion and function. Therapeutic exercise to improve strength and flexibility. Neuromuscular re-education for posture and balance. Therapeutic activities to return to functional activities of daily living. Electronically signed by: RAPHAEL MADDOX,PT Please sign and return to therapist. Thank you for your referral.
--- NOTE | 2025-02-09 09:45 | MHC.PT.DC ---
[facility] [place] Office [place] Office [place] [facility] [address] Carmen Lee [address] [phone] F: [phone] F: [phone] F: [phone] F: [phone] Physical Therapy Discharge Report Diagnosis: SPONDYLOLISTHESIS,LUMBAR, SOHAIL LBP W/O RADICULOPATHY-> PT FOR MOBILITY AND STRENGTHENING Date of Surgery: Date of Evaluation: 12/01/24 Date of Discharge: 02/09/25 Treatments to Date: 4 Cancellations to Date: No Shows to Date: 5 Discharge Status: Patient Elected to Stop Visit Non-compliance Discharge Summary: DAVI WAS PROGRESSING WELL IN PT, HE IS MOTIVATED WITH HIS HEP AND DISPLAYED IMPROVED POSTURAL/ BODY MECH AWARENESS- A FORMAL REASSESSMENT WAS NOT PERF THE Pt DID NOT SHOW FOR THE LAST FEW SCHED PT APPTS . Electronically signed by: RAPHAEL MADDOX,PT Please sign and return to therapist. Thank you for your referral.
== END 2025-02-09 09:45 | disposition home or self-care (01) ==
LOC: HO.PT 13:03
PROVIDERS: PCP Internal Medicine; Visit Provider Registered Nurse Emergency
DX: M43.16 Spondylolisthesis, lumbar region (principal); M54.50 Low back pain, unspecified
CPT/HCPCS: 97110; 97112; 97162

== ENCOUNTER 2025-04-05 12:24 | Outpatient (AMB) | payer OTHER, SELFPAY ==
[2025-04-05 12:36] VITALS: BP 140/70; PULSE 77; RESP 18; O2SAT 97; BMI 46.1
--- NOTE | 2025-04-05 12:36 | MHC.PC.OV ---
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: No Accompanied by: Self / Same As Patient Allergies No Known Allergies (No Known Allergies*) Allergy (Verified 04/05/25 13:12) Medication List - Last Reconciled 04/05/25 by Linda William MD cholecalciferol (vitamin D3) 25 mcg PO DAILY 90 days duloxetine 60 mg PO DAILY 90 days enalapril maleate 20 mg PO DAILY 90 days escitalopram oxalate 10 mg PO QAM gabapentin 400 mg PO TID 30 days [gel cushion seat As directed] hydrochlorothiazide 25 mg PO DAILY 90 days hydrocortisone 2.5% (Procto-Med HC) 1 appl [place] BID-QID PRN ibuprofen 600 mg PO Q8H PRN linaclotide 290 mcg PO DAILY [id number]-[id number] [id number] mcg (Centrum Silver Men) 1 tab PO DAILY pantoprazole 40 mg PO BID sennosides (Francesca-alcon) Take one tablet in the morning and two tablets at bedtime PO PRN constipation 30 days vitamin A palmitate 20,000 units PO DAILY 2 weeks zolpidem 10 mg PO BEDTIME PRN Tobacco use date assessed: 04/05/25 Dental Screening Dental Screen Date: 04/05/25 Did you have a dental visit in the last 12 months?: No Did you have a dental problem in the last 6 months where you did not have access to dental care?: No Was dental information given to patient?: Patient has dentist HPI HPI Comments History of Present Illness Details The patient is a 54-year-old male presenting for follow-up and management of multiple new and chronic conditions, including new right wrist and neck pain. He reports new onset of pain in his right wrist and neck. He has a long-standing history of back pain. The patient's medical history is significant for pain suggestive of neuropathy, constipation, gastroesophageal reflux disease, and insomnia. His current medications include hydrochlorothiazide 25 mg, ibuprofen as needed, Linzess, Centrum, pantoprazole, senna for constipation, and zolpidem for sleep. He is also noted to be morbidly obese and has been advised on diet and exercise. He has hypertension and blood pressure is a little elevated today because he has not take his medications yet. He also has history of mild major depression with anxiety on escitalopram. [facility] Medical History (Updated 04/05/25 @ 13:27 by Linda William MD) Morbid obesity Super-super obese Abdominal bloating Mild recurrent major depression Physical exam Bleeding hemorrhoids Insomnia Lumbar degenerative disc disease Thoracic spine pain Right hip pain B12 deficiency Spina bifida Epistaxis Right ankle sprain Polyarthralgia Fibromyalgia Arthritis HTN (hypertension) Surgical History History of esophagogastroduodenoscopy (EGD) Hx of colonoscopy History of surgery of head History of carpal tunnel surgery History of biopsy Family History Father Cancer Bone cancer Mother Stomach problems Sister No problems noted. Sister Diabetes Brother Diabetes Sleep apnea Bursitis Son No problems noted. Son No problems noted. Son No problems noted. Son Diabetes Daughter Diabetes Daughter No problems noted. Social History Housing: Apartment Are you a primary adult caregiver to a significant other at home: No Do you presently have visiting nurse or other home services: No Alcohol intake: never Patient Tobacco Use Status: Never used Tobacco e-Cigarette/Vaping Use: Never Used Second Hand Smoke Exposure: No service: No Current occupational status: disabled Cognitive needs: No Hearing needs: No Vision needs: Yes Questionnaire Thrive Questionnaire Date Thrive assessed: 10/01/24 I am a: Patient What is your living situation today?: I have a steady place to live Within the past 12 months, did the food you bought not last and you didn't have the money to get more?: Sometimes True Within the past 12 months, did you worry whether your food would run out before you got money to buy more?: Sometimes True Do you have trouble paying for medicines?: No Do you have trouble getting transportation to medical appointments?: Yes Do you have trouble paying your heating and electricity bill?: No Do you have trouble taking care of your child, family member or friend?: Yes Do you have trouble with day-to-day activities such as bathing, preparing meals, shopping, managing finances, etc.?: Yes Are you currently unemployed and looking for a job?: Yes Are you interested in more education?: Yes THRIVE Score: 3 KELSI-7 AMB Questionnaire KELSI-7 Date KELSI - 7 assessed: 10/01/24 Source: Developed by Drs. Reggie Abdul, Angela Tee, Rajinder Watson and colleagues, with an educational maria esther from [employer]. Review of Systems Const All systems reviewed & are unremarkable except as noted in HPI and below Card Denies chest pain at rest, Denies chest pain with activity, Denies edema, Denies irregular heart rhythm, Denies claudication, Denies dyspnea, Denies dyspnea on exertion, Denies orthopnea, Denies paroxysmal nocturnal dyspnea and Denies slow heart rate Resp Denies cough, Denies dyspnea and Denies dyspnea on exertion Musc Denies atrophy, Denies deformity and Denies limited range of motion Skin/Breast Denies bleeding lesions, Denies changing lesions and Denies rash Physical exam (Primary Care) Vital Signs: Last Vital Signs Pulse 77 04/05/25 12:36 Resp 18 04/05/25 12:36 BP 140/70 H 04/05/25 12:36 Pulse Ox 97 04/05/25 12:36 Oxygen Delivery Method Room Air 04/05/25 12:36 BMI result Body Mass Index 46.1 BMI Assessment/Plan discussion: High BMI High, discussed plan: lifestyle, weight reduction, dietary and physical activity Tobacco/Smoking Status: Tobacco use Status Tobacco use date assessed 04/05/25 04/05/25 12:51 Patient Tobacco Use Status Never used Tobacco 04/05/25 12:41 e-Cigarette/Vaping Use Never Used 04/05/25 12:41 Thrive Assessment: Date of Thrive Assessment Date Thrive assessed 10/01/24 04/05/25 12:41 Resp Effort & Inspection: normal respiratory effort Auscultation: clear to auscultation bilaterally Cardio Jugular venous distension: no JVD Rate: regular rate Rhythm: regular rhythm Heart sounds: S1 normal heart sound present and S2 normal heart sound present Extrem General: Yes full ROM Coding Level of Care Code Est Pt Level 4 (46838) Complex EM visit Add On G2211 Diagnoses Essential hypertension I10 Hypertension type: essential hypertension Morbid obesity E66.01 Mild recurrent major depression F33.0 Gastroesophageal reflux disease, unspecified whether esophagitis present K21.9 Esophagitis presence: esophagitis presence not specified Chronic idiopathic constipation K59.04 Neck pain M54.2 Neuropathy G62.9 Time Spent (min) 21 Assessment & Plan Assessment & Plan (1) HTN (hypertension): Code(s): I10 - Essential (primary) hypertension Category: Medical Qualifiers: Hypertension type: essential hypertension Qualified Code(s): I10 - Essential (primary) hypertension (2) Morbid obesity: Code(s): E66.01 - Morbid (severe) obesity due to excess calories Category: Medical (3) Mild recurrent major depression: Code(s): F33.0 - Major depressive disorder, recurrent, mild Category: Medical (4) GERD (gastroesophageal reflux disease): Code(s): K21.9 - Gastro-esophageal reflux disease without esophagitis Category: Medical Qualifiers: Esophagitis presence: esophagitis presence not specified Qualified Code(s): K21.9 - Gastro-esophageal reflux disease without esophagitis (5) Chronic idiopathic constipation: Code(s): K59.04 - Chronic idiopathic constipation Category: Medical (6) Neck pain: Code(s): M54.2 - Cervicalgia Category: Medical (7) Neuropathy: Code(s): G62.9 - Polyneuropathy, unspecified Category: Medical Plan Plan 1. Neuralgia and neuritis, unspecified M79.2 The patient's pain is consistent with neuropathy, and an increase of gabapentin was recommended for symptom management. 2. Mild major depression Continue escitalopram. 3. Constipation The patient will continue his current medications for constipation (Linzess, senna). 4. Morbid Obesity The patient was counseled on the importance of weight loss, particularly for his knees, and was advised to pursue diet and exercise to achieve a BMI of less than 30. 5. Neck pain and right wrist pain X-rays order. Orders: Orders XR wrist RT 2V Today M25.531 - Pain in right wrist Vitamin D 25-OH Total 6 Months E55.9 - Vitamin D deficiency, unspecified Lipid Panel 6 Months E78.5 - Hyperlipidemia, unspecified XR cervical spine 2V Today M54.2 - Cervicalgia Vitamin B12 and Folate 6 Months E53.8 - Deficiency of other specified B group vitamins Comprehensive Century. Panel Fast 6 Months K59.04 - Chronic idiopathic constipation
== END 2025-04-05 13:29 | disposition home or self-care (01) ==
LOC: HO.HMCH 12:25
PROVIDERS: PCP Internal Medicine; Visit Provider Internal Medicine
DX: I10 Essential (primary) hypertension (principal); E66.01 Morbid (severe) obesity due to excess calories; Z68.36 Body mass index [BMI] 36.0-36.9, adult; F33.0 Major depressive disorder, recurrent, mild; K21.9 Gastro-esophageal reflux disease without esophagitis; K59.04 Chronic idiopathic constipation; M54.2 Cervicalgia; G62.9 Polyneuropathy, unspecified

== ENCOUNTER 2025-04-05 12:24 | Outpatient (REF) | payer OTHER, SELFPAY ==
--- NOTE | ~2025-04-05 | XR_ITS ---
EXAMINATION: XR CERVICAL SPINE CLINICAL INFORMATION: M54.2 - Cervicalgia COMPARISON: September 04, 2016. TECHNIQUE: AP, lateral and atlantoodontoid views. FINDINGS: Craniocervical junction is intact. Marginal osteophyte formation and decreased intervertebral disc height with endplate sclerosis at C3-4, C5-6, C6-7 and to a lesser extent C4-5 level. No acute cortical disruption or gross malalignment. No lytic or blastic lesions. Calcifications of the nuchal ligament at C5.. XR/XR cervical spine 2V IMPRESSION: Multilevel cervical spondylosis C3 C7 pronounced at C5-6 and C6-7, overall worsening since prior exam. Electronically signed by: Samm Mari MD 04/05/2025 02:06 PM JOHN ISAAC
--- NOTE | ~2025-04-05 | XR_ITS ---
EXAMINATION: XR WRIST, RIGHT CLINICAL INFORMATION: M25.531 - Pain in right wrist COMPARISON: None available. TECHNIQUE: PA, lateral, and oblique views of the right wrist. FINDINGS: The bones and soft tissues are normal. No fracture. Alignment is anatomic with normal joint spaces. No erosions or abnormal soft tissue calcifications. XR/XR wrist RT min 3V IMPRESSION: Normal right wrist. Electronically signed by: Isaiah Farr MD 04/05/2025 02:08 PM JOHN ISAAC
== END 2025-04-05 12:25 | disposition home or self-care (01) ==
LOC: HO.XRAY 12:24
PROVIDERS: PCP Internal Medicine; Visit Provider Internal Medicine
DX: M54.2 Cervicalgia (principal); I10 Essential (primary) hypertension; K21.9 Gastro-esophageal reflux disease without esophagitis; K59.04 Chronic idiopathic constipation; G62.9 Polyneuropathy, unspecified; F32.0 Major depressive disorder, single episode, mild; E66.01 Morbid (severe) obesity due to excess calories; M25.531 Pain in right wrist
CPT/HCPCS: 72040; 73110; 99212

== ENCOUNTER → 2025-04-05 13:39 | Outpatient (BNV) | payer OTHER, SELFPAY | PROVIDERS: PCP Internal Medicine; Visit Provider Radiology Diagnostic Radiology | DX: M47.812 Spondylosis without myelopathy or radiculopathy, cervical region (principal); M25.531 Pain in right wrist | CPT/HCPCS: 72040; 73110 ==